=== PATIENT | male | born 1935 | race Caucasian/White ===

== ENCOUNTER → 2016-03-16 | Outpatient (CLI) | payer OTHER, BC ==
[~2016-03-16] MED LIST: ASPI81TA28 PO; BUME1TAB PO; FOLI1TAB7 PO; MCRK20 PO; MECL1TAB42 PO; METH2.5T PO; METO1TAB69 PO; NTRGSL/4 UT; PLN25 PO; PRD/1 PO; RANI150T3 PO; SIMV40TA2 PO
[2016-03-16 17:38] LABS: ALT/SGPT 17 U/L (12-78); BLOOD UREA NITROGEN 23 mg/dl (7-18); BUN/CREATININE RATIO 16.5 (10-20); CARBON DIOXIDE 29 mmol/L (21-32); CHLORIDE 104 mmol/L (98-107); GLUCOSE 79 mg/dl (70-99); POTASSIUM 4.3 mmol/L (3.5-5.1); SODIUM 142 mmol/L (136-145)
[2016-03-16 17:40] LABS: ALB/GLOB RATIO 0.9 (0.9-2); ALKALINE PHOSPHATASE 65 U/L (45-117); AST/SGOT 18 U/L (15-37)
[2016-03-16 18:38] LABS: BASO % 0.4 %; BASO ABS # 0.02 K/uL (0-0.2); COMPLETE YES; EOS % 2.5 %; HEMATOCRIT 42.1 % (42-52); IG% 0.2 %; LYMPH % 15.2 %; LYMPH ABS # 0.73 K/uL (1.2-3.4); MEAN CELL VOLUME 104.7 fL (80-100); MEAN CORPUSCULAR HEMOGLOBIN 33.8 pg (25-34); MEAN CORPUSCULAR HGB CONC 32.3 g/dl (32-36); MEAN PLATELET VOLUME 12.2 fL (7.4-10.4); MONO % 10.2 %; NEUT % 71.5 %; PLATELET COUNT 115 K/uL (130-400); PLT ESTIMATE DECREASED; RED BLOOD COUNT 4.02 M/uL (4.7-6.1); WHITE BLOOD COUNT 4.79 K/uL (4.8-10.8)
[2016-03-17 06:04] LABS: ESTIMATED AVERAGE GLUCOSE 114 mg/dl; HA1C FLAG Normal (Normal)
== END | disposition home or self-care (01) ==
LOC: C.LABBFT 11:43
PROVIDERS: ATTEND Internal Medicine
DX: N18.3 Chronic kidney disease, stage 3 (moderate) (principal); R73.01 Impaired fasting glucose

== ENCOUNTER → 2016-08-25 | Day surgery (SDC) | payer OTHER, BC ==
[2016-07-28 09:55] VITALS: Ht 177.8 cm; Wt 72.7 kg
[~2016-08-25] VITALS: Ht 177.8 cm; Wt 72.7 kg
[~2016-08-25] MED LIST changes: +500ML BSS 0.3ML EPI 1:1000PF IRRIG ONE; +ACETAMINOPHEN 325 MG TAB PO PRN; +AMVISC PLUS 0.8ML SYRINGE INT OCU ONE; +ATROPINE SULFATE 0.1 MG/ML 5ML SYR IV PRN; +BSS FLUSH ONE; +ENDOCOAT 0.85ML SYRINGE INT OCU ONE; +EpHEDrine SULFATE INJ 50 MG/ML AMP IV PRN; +EpINEphrine INJ 1MG/ML AMP 1 MG/ML AMP ONE; +LACTATED RINGER'S 1000ML 500 ML IV SCH; +LIDOCAINE 4% OP SOLN DROP CHARGE ONE; +LIDOCAINE 4% OP SOLN DROP CHARGE OPR SCH; +LIDOCAINE HCL 1% MPF 2 ML VIAL ONE; -MCRK20 PO; -MECL1TAB42 PO; +MIDAZOLAM HCL 1 MG/ML 2ML VIAL ONE; +MIX: 4ML BSS 1ML EPI 1:1000 PF TOP ONE; +MOXIFLOXACIN OPH SOLN PER DROP CHARGE ONE; -PLN25 PO; +POVIDONE-IODINE OP SOLN 30 ML BTL ONE; +PROPARACAINE 0.5% OP SOLN PER DROP CHARGE OPR SCH; -RANI150T3 PO; +TOBRAMYCIN/DEXAMETHASONE OPH OINT PER APPLN CHARGE ONE
[2016-08-25] MEDS: PHENYLEPHRINE HCL 2.5% OP SOLN PER DROP CHARGE OPR SCH ×3 (11:19→11:33)
[2016-08-25] MEDS: TROPICAMIDE 1% OP SOLN PER DROP CHARGE OPR SCH ×3 (11:20→11:36)
[2016-08-25] MEDS: CYCLOPENTOLATE HCL 1% OP SOLN PER DROP CHARGE OPR SCH ×3 (11:22→11:38)
[2016-08-25] MEDS: MOXIFLOXACIN OPH SOLN PER DROP CHARGE OPR SCH ×3 (11:24→11:40)
--- NOTE | 2016-08-25 11:36 | History & Physical Bridge - [place] ---
H&P Re-Evaluation Bridge Note: I have examined the patient, reviewed the History & Physical and in the interval since the performance of the History & Physical I have noted the following changes of clinical significance: No changes noted
--- NOTE | 2016-08-25 12:37 | [facility] Post Operative Brief Note ---
Immediate Operative Summary Operative Date Aug 25, 2016. Pre-Operative Diagnosis Right Eye Cataract Post-Operative Diagnosis same Procedure(s) Performed Right Cataract Phacoemulsification With Intraocular Lens Implant Surgeon Dr. Radha Joshi Certified Corporate [employer] Executive Surgeon(s) 0 Estimated Blood Loss 0 Findings right cataract Specimens none Complication(s) None Disposition
[2016-08-25 12:38] VITALS: TEMP 36.6
--- NOTE | 2016-08-25 12:38 | [facility] Operative Report ---
Operative Report Date of Service Aug 25, 2016. Operative Report Phaco with monofocal IOL DATE OF OPERATION: 08/25/16 PREOPERATIVE DIAGNOSIS: Senile nuclear cataract, right eye POSTOPERATIVE DIAGNOSIS: Senile nuclear cataract, right eye PROCEDURE PERFORMED: Phacoemulsification with intraocular lens implantation, right eye SURGEON: Dr. Jaime Joshi ANESTHESIA: Topical with 1% intracameral lidocaine and monitored anesthesia care COMPLICATIONS: None DESCRIPTION OF PROCEDURE: After positively identifying the patient both verbally and by wristband in the preoperative area, the right eye was marked as the operative eye. The patient was then brought back to the operating room by the anesthesia and nursing staff where they were given a drop of Lidocaine and betadine into the operative eye. They were then sterilely prepped and draped in the standard fashion typical for ophthalmic surgery. Steri-strips were placed along the upper eyelids to keep the lashes back, and a lid speculum was placed into the operative eye. At this point, a documented time out was performed with members of the ophthalmology, nursing, and anesthesia staffs all agreeing upon the correct patient, correct location for surgery, correct procedure, and correct type and power of intraocular lens to be implanted. The microscope was then swung into position. First, a paracentesis wound was made using a sideport blade. Then, in sequence, 1% preservative-free lidocaine followed by Endocoat viscoelastic was injected into the anterior chamber. Next , the main incision was made with a keratome blade in triplanar fashion. A sharp cystotome was introduced into the eye and used to create a tear in the anterior capsule, which was directed into a continuous curvilinear capsulorrhexis using Utrata forceps. Hydrodissection was then performed with BSS on a flat-tip cannula. Next, the phacoemulsification handpiece was introduced into the eye and used to remove the nucleus in a [id number] fashion. This was done without complication and then the irrigation-aspiration handpiece was introduced into the eye and used to remove all remaining cortical and epinuclear material. Amvisc was then injected into the anterior chamber as well as into the capsular bag and using the lens injector system, an MX60 19.5 D lens, serial number [id number], and expiration date 01/2019 was injected into the capsular bag and rotated into the correct position. Next, the irrigation- aspiration handpiece was used to remove all remaining Amvisc. BSS was used to hydrate the main wound, and then BSS was injected into the paracentesis site to reach physiologic pressure and then the main wound was checked and found to be watertight. The patient was given drops of Vigamox and Tobradex ointment into the operative eye, and then the surrounding area was cleaned and dried. A clear plastic shield was placed over the eye and the patient was then sat up and taken from the operating room by the anesthesia staff having tolerated the procedure well and suffering no complications. DISPOSITION: The patient was returned to the recovery room in stable condition. I attest to the content of the Intraoperative Record and any orders documented therein. Any exceptions are noted below.
--- NOTE | 2016-08-25 12:39 | Discharge Instructions-SurgCtr ---
Discharge Instructions Date of Service Aug 25, 2016. Visit Reason for Visit: Cataract Right Eye Discharge Discharge Diagnosis / Problem: right cataract Discharge Goals Goal(s): Decrease discomfort, Improve function Activity Recommendations Activity Limitations: as noted below Anesthesia . Post Anesthesia Instructions: If you have had General Anesthesia or IV Sedation: * Do not drive today. * Resume driving when surgeon permits. * Do not make important decisions or sign legal documents today. * Call surgeon for: 1. Temperature elevations greater than 101 degrees F. 2. Uncontrollable pain. 3. Excessive bleeding. 4. Persistent nausea and vomiting. 5. Medication intolerance (nausea, vomiting or rash). * For nausea and vomiting use only clear liquids such as: tea, soda, bouillon until nausea subsides, then gradually increase diet as tolerated. * If you have any concerns or questions, call your surgeon's office. If physician is unavailable and it is an emergency, call 911 or go to the nearest emergency room. . Instructions / Follow-Up Instructions / Follow-Up ACTIVITY RECOMMENDATIONS: * Light activities. * You may walk outside, read, watch television. * You may notice redness on the white part of the eye and some blurry vision - this is normal. MEDICATIONS: Resume previous medications unless instructed otherwise by your surgeon. Start all eye drops at 2:30 pm today: * Eye drops (today): Prednisone - one drop in operative eye every 2 hours while awake Ofloxacin - one drop in operative eye every 2 hours while awake Bromfenac - one drop in operative eye daily SPECIAL CARE INSTRUCTIONS: * Tape plastic shield over eye to sleep at night. Call your doctor at with any concerns or problems. FOLLOW UP VISIT: Follow-up with Dr Joshi at [facility] as scheduled. Diet Recommendations Home Diet: no limitations Procedures Procedures Performed: Right Cataract Phacoemulsification With Intraocular Lens Implant Pending Studies Studies pending at discharge: no Medical Emergencies . Who to Call and When: Medical Emergencies: If at any time you feel your situation is an emergency, please call 911 immediately. . Non-Emergent Contact Non-Emergency issues call your: Surgeon . . "Provider Documentation" section prepared by Jaime Joshi. .
--- NOTE | 2016-08-25 12:47 | Anesthesia Progress Nt - [facility] ---
Anesthesia Post Op Note Date & Time Aug 25, 2016 at 12:47 Vital Signs Pain Intensity: 0 Vital Signs Past 12 Hours Date Time Temp Pulse Resp B/P (MAP) Pulse Ox O2 Delivery O2 Flow Rate FiO2 08/25/16 12:38 36.6 65 16 137/85 (102) 98 Room Air 08/25/16 08:05 36.3 83 20 151/94 (113) 97 Room Air Notes Mental Status: alert / awake / arousable, participated in evaluation Pt Amnestic to Procedure: Yes Nausea / Vomiting: adequately controlled Pain: adequately controlled Airway Patency, RR, SpO2: stable & adequate BP & HR: stable & adequate Hydration State: stable & adequate Anesthetic Complications: no major complications apparent
[2016-08-25 13:14] VITALS: BP 146/90; PULSE 73; O2SAT 98
== END | disposition home or self-care (01) ==
LOC: X.SURG 07:43
PROVIDERS: ATTEND Ophthalmology
DX: H25.11 Age-related nuclear cataract, right eye (principal); H35.30 Unspecified macular degeneration; I34.1 Nonrheumatic mitral (valve) prolapse; M19.90 Unspecified osteoarthritis, unspecified site; I51.9 Heart disease, unspecified; Z90.49 Acquired absence of other specified parts of digestive tract; Z79.82 Long term (current) use of aspirin; Z79.52 Long term (current) use of systemic steroids

== ENCOUNTER → 2016-09-08 | Day surgery (SDC) | payer OTHER, BC ==
[2016-09-07 07:34] VITALS: Ht 177.8 cm; Wt 72.7 kg
[~2016-09-08] VITALS: Ht 177.8 cm; Wt 72.7 kg
[~2016-09-08] MED LIST changes: +LIDOCAINE 4% OP SOLN DROP CHARGE OPL SCH; -LIDOCAINE 4% OP SOLN DROP CHARGE OPR SCH; +PROPARACAINE 0.5% OP SOLN PER DROP CHARGE OPL SCH; -PROPARACAINE 0.5% OP SOLN PER DROP CHARGE OPR SCH
[2016-09-08] MEDS: PHENYLEPHRINE HCL 2.5% OP SOLN PER DROP CHARGE OPL SCH ×3 (10:37→10:47)
[2016-09-08] MEDS: TROPICAMIDE 1% OP SOLN PER DROP CHARGE OPL SCH ×3 (10:38→10:48)
[2016-09-08] MEDS: CYCLOPENTOLATE HCL 1% OP SOLN PER DROP CHARGE OPL SCH ×3 (10:39→10:49)
[2016-09-08] MEDS: MOXIFLOXACIN OPH SOLN PER DROP CHARGE OPL SCH ×3 (10:40→10:50)
[2016-09-08 11:54] VITALS: TEMP 36.4
--- NOTE | 2016-09-08 11:54 | [facility] Post Operative Brief Note ---
Immediate Operative Summary Operative Date Sep 08, 2016. Pre-Operative Diagnosis Cataract Left Eye Post-Operative Diagnosis Same Procedure(s) Performed Left Cataract Phacoemulsification With Intraocular Lens Implant Surgeon Dr. Joshi Printer Slotter Operator Surgeon(s) None Estimated Blood Loss 0 Findings left cataract Specimens 0 Complication(s) None Disposition
--- NOTE | 2016-09-08 11:56 | [facility] Operative Report ---
Operative Report Date of Service Sep 08, 2016. Operative Report DATE OF OPERATION: 09/08/16 PREOPERATIVE DIAGNOSIS: Senile nuclear cataract, left eye POSTOPERATIVE DIAGNOSIS: Senile nuclear cataract, left eye PROCEDURE PERFORMED: Phacoemulsification with intraocular lens implantation, left eye SURGEON: Dr. Jaime Joshi ANESTHESIA: Topical with 1% intracameral lidocaine and monitored anesthesia care COMPLICATIONS: None DESCRIPTION OF PROCEDURE: After positively identifying the patient both verbally and by wristband in the preoperative area, the left eye was marked as the operative eye. The patient was then brought back to the operating room by the anesthesia and nursing staff where they were given a drop of Lidocaine and betadine into the operative eye. They were then sterilely prepped and draped in the standard fashion typical for ophthalmic surgery. Steri-strips were placed along the upper eyelids to keep the lashes back, and a lid speculum was placed into the operative eye. At this point, a documented time out was performed with members of the ophthalmology, nursing, and anesthesia staffs all agreeing upon the correct patient, correct location for surgery, correct procedure, and correct type and power of intraocular lens to be implanted. The microscope was then swung into position. First, a paracentesis wound was made using a sideport blade. Then, in sequence, 1% preservative-free lidocaine followed by Endocoat viscoelastic was injected into the anterior chamber. Next , the main incision was made with a keratome blade in triplanar fashion. A sharp cystotome was introduced into the eye and used to create a tear in the anterior capsule, which was directed into a continuous curvilinear capsulorrhexis using Utrata forceps. Hydrodissection was then performed with BSS on a flat-tip cannula. Next, the phacoemulsification handpiece was introduced into the eye and used to remove the nucleus in a [id number] fashion. This was done without complication and then the irrigation-aspiration handpiece was introduced into the eye and used to remove all remaining cortical and epinuclear material. Amvisc was then injected into the anterior chamber as well as into the capsular bag and using the lens injector system, an MX60 20.0 D lens, serial number [id number], and expiration date 01/2019 was injected into the capsular bag and rotated into the correct position. Next, the irrigation- aspiration handpiece was used to remove all remaining Amvisc. BSS was used to hydrate the main wound, and then BSS was injected into the paracentesis site to reach physiologic pressure and then the main wound was checked and found to be watertight. The patient was given drops of Vigamox and Tobradex ointment into the operative eye, and then the surrounding area was cleaned and dried. A clear plastic shield was placed over the eye and the patient was then sat up and taken from the operating room by the anesthesia staff having tolerated the procedure well and suffering no complications. DISPOSITION: The patient was returned to the recovery room in stable condition. I attest to the content of the Intraoperative Record and any orders documented therein. Any exceptions are noted below.
--- NOTE | 2016-09-08 11:56 | Discharge Instructions-SurgCtr ---
Discharge Instructions Date of Service Sep 08, 2016. Visit Reason for Visit: Cataract Left Eye Discharge Discharge Diagnosis / Problem: left cataract Discharge Goals Goal(s): Decrease discomfort, Improve function Activity Recommendations Activity Limitations: as noted below Anesthesia . Post Anesthesia Instructions: If you have had General Anesthesia or IV Sedation: * Do not drive today. * Resume driving when surgeon permits. * Do not make important decisions or sign legal documents today. * Call surgeon for: 1. Temperature elevations greater than 101 degrees F. 2. Uncontrollable pain. 3. Excessive bleeding. 4. Persistent nausea and vomiting. 5. Medication intolerance (nausea, vomiting or rash). * For nausea and vomiting use only clear liquids such as: tea, soda, bouillon until nausea subsides, then gradually increase diet as tolerated. * If you have any concerns or questions, call your surgeon's office. If physician is unavailable and it is an emergency, call 911 or go to the nearest emergency room. . Instructions / Follow-Up Instructions / Follow-Up ACTIVITY RECOMMENDATIONS: * Light activities. * You may walk outside, read, watch television. * You may notice redness on the white part of the eye and some blurry vision - this is normal. MEDICATIONS: Resume previous medications unless instructed otherwise by your surgeon. Start all eye drops at 2 pm today: * Eye drops (today): Prednisone - one drop in operative eye every 2 hours while awake Ofloxacin - one drop in operative eye every 2 hours while awake Bromfenac - one drop in operative eye daily SPECIAL CARE INSTRUCTIONS: * Tape plastic shield over eye to sleep at night. Call your doctor at with any concerns or problems. FOLLOW UP VISIT: Follow-up with Dr Joshi at [place] office as scheduled. Diet Recommendations Home Diet: no limitations Procedures Procedures Performed: Left Cataract Phacoemulsification With Intraocular Lens Implant Pending Studies Studies pending at discharge: no Medical Emergencies . Who to Call and When: Medical Emergencies: If at any time you feel your situation is an emergency, please call 911 immediately. . Non-Emergent Contact Non-Emergency issues call your: Surgeon . . "Provider Documentation" section prepared by Jaime Joshi. .
--- NOTE | 2016-09-08 12:10 | Anesthesia Progress Nt - [facility] ---
Anesthesia Post Op Note Date & Time Sep 08, 2016 at 12:10 Vital Signs Pain Intensity: 0 Vital Signs Past 12 Hours Date Time Temp Pulse Resp B/P (MAP) Pulse Ox O2 Delivery O2 Flow Rate FiO2 09/08/16 11:54 36.4 79 16 128/79 (95) 97 Room Air 09/08/16 10:23 36.4 78 18 159/82 (107) 94 Room Air Notes Mental Status: alert / awake / arousable, participated in evaluation Pt Amnestic to Procedure: Yes Nausea / Vomiting: adequately controlled Pain: adequately controlled Airway Patency, RR, SpO2: stable & adequate BP & HR: stable & adequate Hydration State: stable & adequate Anesthetic Complications: no major complications apparent
[2016-09-08 12:19] VITALS: BP 137/87; PULSE 80; O2SAT 97
== END | disposition home or self-care (01) ==
LOC: X.SURG 10:03
PROVIDERS: ATTEND Ophthalmology
DX: H25.12 Age-related nuclear cataract, left eye (principal); I34.1 Nonrheumatic mitral (valve) prolapse; M19.90 Unspecified osteoarthritis, unspecified site; I25.10 Atherosclerotic heart disease of native coronary artery without angina pectoris; I10 Essential (primary) hypertension; Z79.82 Long term (current) use of aspirin; I25.2 Old myocardial infarction; Z86.79 Personal history of other diseases of the circulatory system; K21.9 Gastro-esophageal reflux disease without esophagitis; M06.9 Rheumatoid arthritis, unspecified; Z92.241 Personal history of systemic steroid therapy; Z95.818 Presence of other cardiac implants and grafts

== ENCOUNTER → 2016-09-15 | Outpatient (CLI) | payer OTHER, BC ==
[~2016-09-15] MED LIST changes: -500ML BSS 0.3ML EPI 1:1000PF IRRIG ONE; -ACETAMINOPHEN 325 MG TAB PO PRN; -AMVISC PLUS 0.8ML SYRINGE INT OCU ONE; -ATROPINE SULFATE 0.1 MG/ML 5ML SYR IV PRN; -BSS FLUSH ONE; -ENDOCOAT 0.85ML SYRINGE INT OCU ONE; -EpHEDrine SULFATE INJ 50 MG/ML AMP IV PRN; -EpINEphrine INJ 1MG/ML AMP 1 MG/ML AMP ONE; -LACTATED RINGER'S 1000ML 500 ML IV SCH; -LIDOCAINE 4% OP SOLN DROP CHARGE ONE; -LIDOCAINE 4% OP SOLN DROP CHARGE OPL SCH; -LIDOCAINE HCL 1% MPF 2 ML VIAL ONE; -MIDAZOLAM HCL 1 MG/ML 2ML VIAL ONE; -MIX: 4ML BSS 1ML EPI 1:1000 PF TOP ONE; -MOXIFLOXACIN OPH SOLN PER DROP CHARGE ONE; -POVIDONE-IODINE OP SOLN 30 ML BTL ONE; -PROPARACAINE 0.5% OP SOLN PER DROP CHARGE OPL SCH; -TOBRAMYCIN/DEXAMETHASONE OPH OINT PER APPLN CHARGE ONE
--- NOTE | 2016-09-15 16:31 | DIAGNOSTIC IMAGING REPORT ---
LEFT ART DOP DUPLEX LWR EXT UNI CLINICAL HISTORY: 81 years-old Male presenting with LLE NO PEDAL PULSE/COOLER/AFIB. TECHNIQUE: Real-time grayscale and color and spectral Doppler ultrasound imaging of the bilateral lower extremity arteries was performed. Measurements calculated based on NASCET criteria. COMPARISON: None. FINDINGS: Left: Common femoral artery: Atherosclerosis. Peak systolic velocity 48 cm/s. Normal triphasic waveforms. Superficial femoral artery: Atherosclerosis. Peak systolic velocity 50-66 cm/s. Normal triphasic waveforms Popliteal artery: Moderate atherosclerotic plaque in the distal popliteal artery. Peak systolic velocity 16-28 cm/s. Normal triphasic waveforms Posterior tibial artery: Atherosclerosis. Peak systolic velocity 14 cm/s. Blunted waveforms Peroneal artery: Patent. Peak systolic velocity 99 cm/s. Diminutive and slightly blunted waveforms Anterior tibial artery: Patent. Peak systolic velocity 25 cm/s. Blunted waveforms Dorsalis pedis: Patent. Peak systolic velocity 8 cm/s. Diminutive and slightly blunted waveforms ARNALDO Brachial: Right: mmHg, Left: 117 mmHg. Ankle (Posterior tibial): Right: 102 mmHg, Left: 70 mmHg. Ankle (Dorsalis pedis): Right: 116 mmHg, Left: 49 mmHg. Ankle/Brachial Index: Right: 0.99, Left: 0.60. Reference ranges: Normal ARNALDO 1.0-1.4; 0.9-0.99 borderline; less than 0.9 abnormal. IMPRESSION: 1. Abnormal ankle-brachial index in the left lower extremity. Diffuse atherosclerotic plaque burden most severe in the distal popliteal artery with patent vessels. No focal occlusion. Electronically signed by: Pete Askew M.D. 09/15/2016 4:30 PM Dictated Date/Time: 09/15/2016 4:24 PM
--- NOTE | 2016-09-15 16:49 | DIAGNOSTIC IMAGING REPORT ---
LEFT LOWER EXTREMITY VENOUS DOPPLER CLINICAL HISTORY: LLE NO PEDAL PULSE/COOLER/AFIB COMPARISON STUDY: No previous studies for comparison. TECHNIQUE: Sonography of the deep venous system of the left lower extremity was performed. Compression and augmentation were evaluated. FINDINGS: The common femoral, superficial femoral and popliteal veins were compressible. Augmentation was normal. Flow was shown within the deep calf vessels. IMPRESSION: No evidence of deep venous thrombus within the left lower extremity. Electronically signed by: Teddy Ling M.D. 09/15/2016 4:48 PM Dictated Date/Time: 09/15/2016 4:27 PM
== END | disposition home or self-care (01) ==
LOC: C.ULTR 14:52
PROVIDERS: ATTEND Nurse Practitioner
DX: M79.662 Pain in left lower leg (principal); R94.39 Abnormal result of other cardiovascular function study; I70.202 Unspecified atherosclerosis of native arteries of extremities, left leg

== ENCOUNTER → 2016-10-07 | Outpatient (CLI) | payer OTHER, BC ==
--- NOTE | 2016-10-07 11:38 | DIAGNOSTIC IMAGING REPORT ---
CHEST 2 VIEWS ROUTINE HISTORY: J44.9 COPD, [id number] COMPARISON: Chest 12/24/2015. FINDINGS: No pneumothorax. Small bilateral pleural effusions which are not significantly changed. Bibasilar linear densities suggesting scarring or subsegmental atelectasis. This is also similar to the prior study. The heart is stable in size. No new focal lung consolidations. No evidence for pulmonary edema. Stable prominence of the right pulmonary arteries. Suture material within the right lung apex. A few punctate nodular densities within the right midlung zone remain unchanged and favor calcified granulomas. IMPRESSION: 1. No change in the small bilateral pleural effusions. 2. No evidence for pulmonary edema. 3. Bibasilar linear densities are nonspecific but favor atelectasis. Electronically signed by: Virgil Schultz M.D. 10/07/2016 11:37 AM Dictated Date/Time: 10/07/2016 11:34 AM
== END | disposition home or self-care (01) ==
LOC: C.RAD1850 11:13
PROVIDERS: ATTEND Physician Assistant Medical
DX: J44.9 Chronic obstructive pulmonary disease, unspecified (principal)

== ENCOUNTER 2016-11-29 11:19 | Emergency (ER) | payer OTHER, BC ==
[~2016-11-29] VITALS: Ht 177.8 cm; Wt 76.7 kg
[~2016-11-29 11:19] MED LIST changes: -ASPI81TA28 PO; -BUME1TAB PO; -METO1TAB69 PO; -PRD/1 PO; -SIMV40TA2 PO
[2016-11-29 11:21] VITALS: Ht 177.8 cm; Wt 76.7 kg
[2016-11-29] MEDS ORDERED: SODIUM CHLORIDE 0.9% 1000ML 1,000 ML IV STA (12:18)
--- NOTE | 2016-11-29 12:27 | EMERGENCY ROOM VISIT NOTE ---
History Report prepared by Sade: Federica Dueñas Under the Supervision of: Dr. Josias Lao D.O. First contact with patient: 12:10 Chief Complaint: WEAKNESS Stated Complaint: CAN'T EAT,WEAK History of Present Illness The patient is an 81 year old male who presents to the Emergency Room with complaints of persistent weakness over the past week. The patient reports that three weeks ago his . He states that recently he has been experiencing generalized weakness and shortness of breath with exertion. The patient reports a decrease in eating and drinking. He states that the past four days he has been experiencing intermittent abdominal pain. The patient states that he has a history of a previous GI bleed while on Coumadin. He states that he feels similar today as he did with his GI bleed. The patient states that his stools are darker, but not black. He additionally reports intermittent diarrhea. The patient reports a history of an irregular heart beat. He states that he always has pain in his legs, but denies any swelling. The patient denies seeing his PCP for his symptoms. He denies any headache, chest pain, weight gain, or weakness to one side of his body. Source of History: patient Onset: past week Position: other (global) Quality: other (weakness) Timing: other (persistent) Associated Symptoms: + SOB, + abdominal pain, + diarrhea Review of Systems See HPI for pertinent positives & negatives. A total of 10 systems reviewed and were otherwise negative. Past Medical & Surgical Medical Problems: (1) Cardiac catheterization (2) Cholecystectomy (3) Coronary artery disease (4) Dehydration (5) Kidney stone (6) Placement of stent in coronary artery (7) Vertigo Family History Omitted due to advanced age Social History Smoking Status: Former Smoker Alcohol Use: none Drug Use: none Marital Status: Housing Status: lives alone Occupation Status: retired Current/Historical Medications Scheduled Aspirin (Aspirin Ec), 81 MG PO QAM Bumetanide (Bumex), 1 MG PO QAM Folic Acid (Folvite), 1 MG PO QAM Methotrexate Sodium (Methotrexate), 5 TAB PO TUESDAY Metoprolol Succ (Toprol Xl) (Toprol-Xl ), 100 MG PO QAM Nitroglycerin (Nitrostat), 0.4 MG UT PRN Prednisone (Prednisone), 2 MG PO QAM Simvastatin (Zocor), 40 MG PO HS Allergies Coded Allergies: Oxycodone (Verified Allergy, Unknown, HIVES FOR 3 WKS, 11/29/16) Furosemide (Verified Adverse Reaction, Mild, Confusion, dizziness and nausea-STILL TAKES IT AT HOME, 11/29/16) Physical Exam Vital Signs Date Time Temp Pulse Resp B/P (MAP) Pulse Ox O2 Delivery O2 Flow Rate FiO2 11/29/16 15:55 36.3 77 18 140/82 96 11/29/16 14:57 78 18 146/85 95 Room Air 11/29/16 14:07 76 20 143/89 97 Room Air 11/29/16 12:35 81 11/29/16 11:21 36.3 91 20 116/68 97 Room Air Physical Exam GENERAL: Patient is awake, alert, and in no acute distress. Patient is resting comfortably and showing no signs of anxiety EYES: The conjunctivae are clear. The pupils are round and reactive. EARS, NOSE, MOUTH AND THROAT: The nose is without any evidence of any deformity. Mucous membranes are moist tongue is midline NECK: The neck is nontender and supple. RESPIRATORY: Normal respiratory effort is noted there is no evidence of wheezing rhonchi or rales CARDIOVASCULAR: Irregular rhythm noted to auscultation systolic murmur noted to auscultation GASTROINTESTINAL: The abdomen is soft. Bowel sounds are present in all quadrants. Abdomen is nontender MUSCULOSKELETAL/EXTREMITIES: There is no evidence of gross deformity full range of motion is noted in the hips and shoulders SKIN: Trace pedal edema noted bilaterally. There is no obvious evidence of any rash. There are no petechiae, pallor or cyanosis noted. NEUROLOGIC: Patient is awake alert and oriented x3, strength was symmetric. Medical Decision & Procedures ER Provider Diagnostic Interpretation: Radiology results as stated below per my review and radiologist interpretation: CHEST ONE VIEW PORTABLE CLINICAL HISTORY: Pain, radiating to the abdomen COMPARISON STUDY: 10/07/2016 FINDINGS: The cardiac and mediastinal contours remain stable. There is no failure. There are small bilateral pleural effusions left greater than right. There are nonspecific bibasilar opacities, possibly atelectatic.. No free intraperitoneal air is visualized.[ IMPRESSION: 1. Bibasilar opacities, possibly atelectatic 2. Small bilateral pleural effusions left greater than right Electronically signed by: Zia Suazo M.D. 11/29/2016 12:40 PM Dictated Date/Time: 11/29/2016 12:38 PM Laboratory Results 11/29/16 12:13 Red Blood Count 4.00, Mean Corpuscular Volume 101.3, Mean Corpuscular Hemoglobin 34.0, Mean Corpuscular Hemoglobin Concent 33.6, Mean Platelet Volume 11.2, Neutrophils (%) (Auto) 69.4, Lymphocytes (%) (Auto) 8.1, Monocytes (%) ( Auto) 20.0, Eosinophils (%) (Auto) 2.0, Basophils (%) (Auto) 0.3, Neutrophils # (Auto) 4.20, Lymphocytes # (Auto) 0.49, Monocytes # (Auto) 1.21, Eosinophils # ( Auto) 0.12, Basophils # (Auto) 0.02 11/29/16 12:13 Test 11/29/16 12:13 11/29/16 14:00 White Blood Count 6.05 K/uL (4.8-10.8) Red Blood Count 4.00 M/uL (4.7-6.1) Hemoglobin 13.6 g/dL (14.0-18.0) Hematocrit 40.5 % (42-52) Mean Corpuscular Volume 101.3 fL (80-100) Mean Corpuscular Hemoglobin 34.0 pg (25-34) Mean Corpuscular Hemoglobin Concent 33.6 g/dl (32-36) Platelet Count 147 K/uL (130-400) Mean Platelet Volume 11.2 fL (7.4-10.4) Neutrophils (%) (Auto) 69.4 % Lymphocytes (%) (Auto) 8.1 % Monocytes (%) (Auto) 20.0 % Eosinophils (%) (Auto) 2.0 % Basophils (%) (Auto) 0.3 % Neutrophils # (Auto) 4.20 K/uL (1.4-6.5) Lymphocytes # (Auto) 0.49 K/uL (1.2-3.4) Monocytes # (Auto) 1.21 K/uL (0.11-0.59) Eosinophils # (Auto) 0.12 K/uL (0-0.5) Basophils # (Auto) 0.02 K/uL (0-0.2) RDW Standard Deviation 51.4 fL (36.4-46.3) RDW Coefficient of Variation 14.1 % (11.5-14.5) Immature Granulocyte % (Auto) 0.2 % Immature Granulocyte # (Auto) 0.01 K/uL (0.00-0.02) Prothrombin Time 11.8 SECONDS (9.0-12.0) Prothromb Time International Ratio 1.1 (0.9-1.1) Activated Partial Thromboplast Time 31.5 SECONDS (21.0-31.0) Partial Thromboplastin Ratio 1.2 Anion Gap 6.0 mmol/L (3-11) Est Creatinine Clear Calc Drug Dose 38.5 ml/min Estimated GFR () 49.2 Estimated GFR (Non- 42.4 BUN/Creatinine Ratio 15.8 (10-20) Calcium Level 9.1 mg/dl (8.5-10.1) Magnesium Level 1.9 mg/dl (1.8-2.4) Total Bilirubin 0.7 mg/dl (0.2-1) Direct Bilirubin 0.2 mg/dl (0-0.2) Aspartate Amino Transf (AST/SGOT) 21 U/L (15-37) Alanine Aminotransferase (ALT/SGPT) 15 U/L (12-78) Alkaline Phosphatase 84 U/L (45-117) Total Creatine Kinase 41 U/L (39-308) Creatine Kinase MB 0.8 ng/ml (0.5-3.6) Creatine Kinase MB Ratio 2.0 (0-3.0) Troponin I 0.016 ng/ml (0-0.045) Total Protein 7.3 gm/dl (6.4-8.2) Albumin 3.0 gm/dl (3.4-5.0) Lipase 119 U/L (73-393) Thyroid Stimulating Hormone (TSH) 1.330 uIu/ml (0.300-4.500) Urine Color YELLOW Urine Appearance CLEAR (CLEAR) Urine pH 5.5 (4.5-7.5) Urine Specific Outing 1.019 (1.000-1.030) Urine Protein TRACE (NEG) Urine Glucose (UA) NEG (NEG) Urine Ketones NEG (NEG) Urine Occult Blood NEG (NEG) Urine Nitrite NEG (NEG) Urine Bilirubin NEG (NEG) Urine Urobilinogen NEG (NEG) Urine Leukocyte Esterase NEG (NEG) Urine WBC (Auto) 1-5 /hpf (0-5) Urine RBC (Auto) 0-4 /hpf (0-4) Urine Hyaline Casts (Auto) 1-5 /lpf (0-5) Urine Epithelial Cells (Auto) 0-5 /lpf (0-5) Urine Bacteria (Auto) NEG (NEG) Laboratory results per my review. Medications Administered Medications (Trade) Dose Ordered Sig/Wilver Route Start Time Stop Time Status Last Admin Dose Admin Sodium Chloride 1,000 ml @ 999 mls/hr Q1H1M STAT IV 11/29/16 12:18 11/29/16 13:18 DC 11/29/16 12:18 999 MLS/HR ECG Indication: weakness Rate (beats per minute): 73 Rhythm: atrial fibrillation Findings: T-wave inversion (diffuse), other (frequent ectopy) Comparison ECG Date: 12/24/15 Change: no significant change ED Course 1214: The patient was evaluated in room B5. A complete history and physical examination were performed. 1218: Ordered Sodium Chloride 1000 ml @ 999 mls/hr IV. 1440: I reevaluated the patient and feels better after IV fluids 1511: I reevaluated the patient and he is resting comfortably. I discussed the exam findings with him and I discussed the treatment plan. He verbalized complete understanding and agreement. He is ready to go home. Medical Decision Differential diagnosis: Etiologies such as metabolic, infection, hypo/hyperglycemia, electrolyte abnormalities, cardiac sources, intracerebral event, toxicologic, neurologic, as well as others were entertained. Nursing notes reviewed. The patient is an 81-year-old male who presented to the department for evaluation of generalized weakness. He had no focal neurologic deficit. His physical exam and history did not appear to be consistent with stroke. The patient states that he has not been eating well recently because his recently . The patient was treated with IV fluids in the emergency department. I discussed the patient's laboratory and radiographic studies with him. He was able to ambulate without difficulty. I discussed his case with the emergency [facility] case reviewer. He was set up with an appointment with his primary care physician this week. He was encouraged to rest and avoid any strenuous activity. He was also encouraged to continue all medications as prescribed. He was also encouraged to follow-up with his family doctor as scheduled but return to the emergency department immediately if symptoms change worsen or the need arises. He was found have a pleural effusion but his chest x- ray appears to be unchanged from previous. Medication Reconcilliation Current Medication List: was personally reviewed by me Blood Pressure Screening Patient's blood pressure: Normal blood pressure Blood pressure disposition: Did not require urgent referral Impression Primary Impression: Weakness Additional Impressions: Dehydration Pleural effusion Scribe Attestation The scribe's documentation has been prepared under my direction and personally reviewed by me in its entirety. I confirm that the note above accurately reflects all work, treatment, procedures, and medical decision making performed by me. Departure Information Dispostion Home / Self-Care Referrals No Doctor, Assigned (PCP) Tristen Preston M.D. Forms HOME CARE DOCUMENTATION FORM, IMPORTANT VISIT INFORMATION Patient Instructions ED Weakness Diana MOURA [facility] Additional Instructions Follow-up with your family doctor this week as scheduled. Drink plenty clear liquids. Continue all medications as prescribed. Return to the emergency department immediately if symptoms change worsen or the need arises. Problem Qualifiers
--- NOTE | 2016-11-29 12:41 | DIAGNOSTIC IMAGING REPORT ---
CHEST ONE VIEW PORTABLE CLINICAL HISTORY: Pain, radiating to the abdomen COMPARISON STUDY: 10/07/2016 FINDINGS: The cardiac and mediastinal contours remain stable. There is no failure. There are small bilateral pleural effusions left greater than right. There are nonspecific bibasilar opacities, possibly atelectatic.. No free intraperitoneal air is visualized.[ IMPRESSION: 1. Bibasilar opacities, possibly atelectatic 2. Small bilateral pleural effusions left greater than right Electronically signed by: Zia Suazo M.D. 11/29/2016 12:40 PM Dictated Date/Time: 11/29/2016 12:38 PM
[2016-11-29 12:43] LABS: BASO % 0.3 %; BASO ABS # 0.02 K/uL (0-0.2); COMPLETE YES; HEMATOCRIT 40.5 % (42-52); IG% 0.2 %; LYMPH % 8.1 %; LYMPH ABS # 0.49 K/uL (1.2-3.4); MEAN CELL VOLUME 101.3 fL (80-100); MEAN CORPUSCULAR HGB CONC 33.6 g/dl (32-36); MEAN PLATELET VOLUME 11.2 fL (7.4-10.4); NEUT % 69.4 %; PLATELET COUNT 147 K/uL (130-400); WHITE BLOOD COUNT 6.05 K/uL (4.8-10.8)
[2016-11-29 12:53] LABS: INR 1.1 (0.9-1.1); PARTIAL THROMBOPLASTIN RATIO 1.2; PROTHROMBIN TIME (PATIENT) 11.8 SECONDS (9.0-12.0)
[2016-11-29 13:05] LABS: BUN/CREATININE RATIO 15.8 (10-20); CALCIUM 9.1 mg/dl (8.5-10.1); CREATININE 1.5 mg/dl (0.60-1.40); MAGNESIUM 1.9 mg/dl (1.8-2.4); POTASSIUM 3.7 mmol/L (3.5-5.1)
[2016-11-29 13:13] LABS: THYROID STIMULATING HORMONE 1.33 uIu/ml (0.300-4.500)
[2016-11-29 14:25] LABS: URINE APPEARANCE CLEAR (CLEAR); URINE BILIRUBIN NEG (NEG); URINE COLOR YELLOW; URINE EPITHELIAL CELL AUTO 0-5 /lpf (0-5); URINE NITRITE NEG (NEG); URINE PH 5.5 (4.5-7.5); URINE SPECIFIC GRAVITY 1.019 (1.000-1.030); UROBILINOGEN NEG (NEG)
[2016-11-29 14:26] LABS: MANUAL MICROSCOPIC REQUIRED? NO; REVIEW REQ? NO
[2016-11-29] MEDS ORDERED: ASPI81TA28 PO (15:17)
[2016-11-29 15:55] VITALS: BP 140/82; PULSE 77; TEMP 36.3; O2SAT 96
[2016-11-29] MEDS ORDERED: SIMV40TA2 PO (20:53)
[2016-11-29] MEDS ORDERED: BUME1TAB PO (23:42)
[2016-11-29] MEDS ORDERED: METO1TAB69 PO (23:47)
[2016-11-29] MEDS ORDERED: PRD/1 PO (23:52)
== END 2016-11-29 15:57 | disposition home or self-care (01) ==
LOC: C.EDB 11:20
DX: R53.1 Weakness (principal); E86.0 Dehydration; J90 Pleural effusion, not elsewhere classified; Z90.49 Acquired absence of other specified parts of digestive tract; I25.10 Atherosclerotic heart disease of native coronary artery without angina pectoris; Z87.442 Personal history of urinary calculi; Z95.5 Presence of coronary angioplasty implant and graft; Z87.891 Personal history of nicotine dependence; Z79.82 Long term (current) use of aspirin; Z79.899 Other long term (current) drug therapy

== ENCOUNTER → 2016-12-01 | Outpatient (CLI) | payer OTHER, BC ==
[~2016-12-01] MED LIST changes: +ASPI81TA28 PO; +BUME1TAB PO; +METO1TAB69 PO; +PRD/1 PO; +SIMV40TA2 PO
[2016-12-01 12:10] LABS: URINE APPEARANCE CLEAR (CLEAR); URINE BILIRUBIN NEG (NEG); URINE COLOR YELLOW; URINE EPITHELIAL CELL AUTO 0-5 /lpf (0-5); URINE NITRITE NEG (NEG); URINE SPECIFIC GRAVITY 1.016 (1.000-1.030); UROBILINOGEN NEG (NEG); ZZUR CULT IF INDIC CLEAN CATCH NO
[2016-12-01 12:13] LABS: MANUAL MICROSCOPIC REQUIRED? NO; REVIEW REQ? NO
[2016-12-01 12:25] LABS: BASO % 0.4 %; BASO ABS # 0.03 K/uL (0-0.2); COMPLETE YES; EOS % 3.2 %; HEMATOCRIT 40.9 % (42-52); IG% 0.4 %; LYMPH % 12.2 %; LYMPH ABS # 0.95 K/uL (1.2-3.4); MEAN CORPUSCULAR HEMOGLOBIN 33.8 pg (25-34); MEAN CORPUSCULAR HGB CONC 32.8 g/dl (32-36); MEAN PLATELET VOLUME 11.6 fL (7.4-10.4); MONO % 11.7 %; NEUT % 72.1 %; PLATELET COUNT 175 K/uL (130-400); RED BLOOD COUNT 3.97 M/uL (4.7-6.1); WHITE BLOOD COUNT 7.79 K/uL (4.8-10.8)
[2016-12-01 12:29] LABS: ESTIMATED AVERAGE GLUCOSE 117 mg/dl; HA1C FLAG Normal (Normal)
[2016-12-01 12:33] LABS: ALT/SGPT 15 U/L (12-78); AST/SGOT 19 U/L (15-37); BLOOD UREA NITROGEN 29 mg/dl (7-18); BUN/CREATININE RATIO 20.8 (10-20); CALCIUM 8.8 mg/dl (8.5-10.1); CARBON DIOXIDE 27 mmol/L (21-32); CHLORIDE 106 mmol/L (98-107); CHOLESTEROL 122 mg/dl (0-200); GLUCOSE 87 mg/dl (70-99); SODIUM 138 mmol/L (136-145)
[2016-12-01 12:43] LABS: ALB/GLOB RATIO 0.7 (0.9-2); ALKALINE PHOSPHATASE 83 U/L (45-117); CHOLESTEROL/HDL RATIO 2.9; HDL CHOLESTEROL 42 mg/dl; LDL CHOLESTEROL CALCULATED 59 mg/dl; TRIGLYCERIDES 103 mg/dl (0-150); VERY LOW DENSITY LIPOPROT CALC 21 mg/dl
== END | disposition home health service (06) ==
LOC: C.LABBFT 09:50
PROVIDERS: ATTEND Physician Assistant Medical
DX: N18.3 Chronic kidney disease, stage 3 (moderate) (principal); J22 Unspecified acute lower respiratory infection; R73.01 Impaired fasting glucose; E78.00 Pure hypercholesterolemia, unspecified; I25.10 Atherosclerotic heart disease of native coronary artery without angina pectoris; R53.83 Other fatigue

== ENCOUNTER 2017-01-25 15:22 | Emergency (ER) | payer OTHER ==
[~2017-01-25] VITALS: Ht 170.2 cm; Wt 74.0 kg
[~2017-01-25 15:22] MED LIST changes: +CYAN100073 PO; +METO100T44 PO; -METO1TAB69 PO; +SERT25TA PO; +TRIA1SPR4 NAE; +ZNTT/150 PO
[2017-01-25 15:49] VITALS: TEMP 36.5; Ht 170.2 cm; Wt 74.0 kg
[2017-01-25] MEDS ORDERED: CEFTRIAXONE SOD INJ 1 GM ADDVIAL IV STA (16:09)
[2017-01-25] MEDS ORDERED: XYLOCAINE 1%/SOD BICARB 20 ML VIAL INFIL ONE (16:15)
[2017-01-25] MEDS ORDERED: CYAN100020 PO (17:09)
--- NOTE | 2017-01-25 17:13 | DIAGNOSTIC IMAGING REPORT ---
R HAND MIN 3 VIEWS ROUTINE CLINICAL HISTORY: ? R middle finger bony infection COMPARISON: None. DISCUSSION: Soft tissue edema. Moderate generalized degenerative change. No lytic or blastic process. No direct evidence for osteomyelitis. Moderate soft tissue edema IMPRESSION: Moderate soft tissue edema, primarily in the region of the second and third fingers. Degenerative change. No acute bony abnormality. The above report was generated using voice recognition software. It may contain grammatical, syntax or spelling errors. Electronically signed by: Duong Durand M.D. 01/25/2017 5:12 PM Dictated Date/Time: 01/25/2017 5:10 PM
[2017-01-25] MEDS ORDERED: CLIN300C10 PO (18:43)
[2017-01-25] MEDS ORDERED: CLINDAMYCIN HCL 150 MG CAP PO ONE (18:45)
[2017-01-25] MEDS ORDERED: CLINDAMYCIN 150MG HOME PACK PO ONE (18:45)
[2017-01-25 19:20] VITALS: BP 170/107; PULSE 73; O2SAT 97
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
== END 2017-01-25 19:22 | disposition home or self-care (01) ==
LOC: C.EDB 15:23 → C.EDA 19:22
DX: L03.011 Cellulitis of right finger (principal); I25.10 Atherosclerotic heart disease of native coronary artery without angina pectoris; Z87.442 Personal history of urinary calculi; Z79.899 Other long term (current) drug therapy

== ENCOUNTER → 2017-02-01 | Outpatient (CLI) | payer OTHER, BC ==
[~2017-02-01] MED LIST changes: +CLIN300C10 PO; +CYAN100020 PO; -CYAN100073 PO; -FOLI1TAB7 PO; +FOLI1TAB8 PO
[2017-02-01 18:08] LABS: HEMATOCRIT 46.1 % (42-52); MEAN CELL VOLUME 103.6 fL (80-100); MEAN CORPUSCULAR HEMOGLOBIN 34.6 pg (25-34); MEAN CORPUSCULAR HGB CONC 33.4 g/dl (32-36); PLATELET COUNT 123 K/uL (130-400); RED BLOOD COUNT 4.45 M/uL (4.7-6.1); WHITE BLOOD COUNT 6.07 K/uL (4.8-10.8)
[2017-02-01 18:09] LABS: BASO % 0.5 %; BASO ABS # 0.03 K/uL (0-0.2); COMPLETE YES; EOS % 0.8 %; GIANT PLATELETS 1+; IG% 0.5 %; LYMPH % 9.7 %; LYMPH ABS # 0.59 K/uL (1.2-3.4); MONO % 14.2 %; NEUT % 74.3 %; PLT ESTIMATE DECREASED; TOXIC GRANULATION 1+
[2017-02-01 18:14] LABS: BLOOD UREA NITROGEN 28 mg/dl (7-18); CARBON DIOXIDE 29 mmol/L (21-32); CHLORIDE 101 mmol/L (98-107); CREATININE 1.62 mg/dl (0.60-1.40); GLUCOSE 119 mg/dl (70-99); POTASSIUM 3.4 mmol/L (3.5-5.1); SODIUM 137 mmol/L (136-145); URIC ACID 7.7 mg/dl (2.6-7.2)
== END | disposition home or self-care (01) ==
LOC: C.LABBFT 15:27
PROVIDERS: ATTEND Physician Assistant Medical
DX: D64.9 Anemia, unspecified (principal); M79.89 Other specified soft tissue disorders; R63.4 Abnormal weight loss

== ENCOUNTER 2017-02-08 16:24 | Inpatient (IN) | payer OTHER, BC ==
[~2017-02-08] VITALS: Ht 165.1 cm; Wt 72.5 kg
[~2017-02-08 16:24] MED LIST changes: -BUME1TAB PO; -CYAN100020 PO; -FOLI1TAB8 PO; -PRD/1 PO; -SERT25TA PO; -SIMV40TA2 PO; -TRIA1SPR4 NAE; -ZNTT/150 PO
[2017-02-08] MEDS ORDERED: SODIUM CHLORIDE 0.9% 1000ML 500 ML IV STA (16:35)
[2017-02-08 16:40] VITALS: Ht 165.1 cm; Wt 72.5 kg
[2017-02-08 16:50] LABS: HEMATOCRIT 48.8 % (42-52); HEMOGLOBIN 16.1 g/dL (14.0-18.0); MEAN CELL VOLUME 103.6 fL (80-100); MEAN CORPUSCULAR HEMOGLOBIN 34.2 pg (25-34); RED CELL DISTRIBUTION WIDTH CV 16.2 % (11.5-14.5); RED CELL DISTRIBUTION WIDTH SD 61.5 fL (36.4-46.3); WHITE BLOOD COUNT 8.15 K/uL (4.8-10.8)
--- NOTE | 2017-02-08 16:54 | DIAGNOSTIC IMAGING REPORT ---
CHEST ONE VIEW PORTABLE CLINICAL HISTORY: 81 years-old Male presenting with EVALUATE ALTERED MENTAL STATUS/WEAKNESS. TECHNIQUE: Portable upright AP view of the chest was obtained. COMPARISON: 01/20/2017. FINDINGS: Atherosclerosis of aortic arch. Evidence of aortic valve replacement. Cardiac silhouette normal in size, decreased from prior. Prominence of the bilateral johnny. Persistent bibasilar opacities, left greater than right. Small bilateral pleural effusions. No pneumothorax. Degenerative changes of the thoracic spine. Cholecystectomy clips. IMPRESSION: 1. Unchanged bibasilar opacities left greater than right with small bilateral pleural effusions. 2. Apparent decrease in cardiomegaly. 3. Persistent prominence of the johnny likely vascular. Electronically signed by: Pete Askew M.D. 02/08/2017 4:52 PM Dictated Date/Time: 02/08/2017 4:51 PM
[2017-02-08 17:00] LABS: INR 1.2 (0.9-1.1); PTT PATIENT 31.9 SECONDS (21.0-31.0)
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
[2017-02-08] MEDS ORDERED: CYAN100020 PO (17:09)
[2017-02-08 17:13] LABS: PLATELET COUNT 89 K/uL (130-400)
[2017-02-08] MEDS ORDERED: SERT50TA PO (17:13)
[2017-02-08] MEDS ORDERED: TPRSR/100 PO (17:13)
[2017-02-08] MEDS ORDERED: PRLSR20 PO (17:13)
[2017-02-08 17:17] LABS: BASO % 0.2 %; BASO ABS # 0.02 K/uL (0-0.2); EOS % 0.1 %; EOS ABS # 0.01 K/uL (0-0.5); IG# 0.04 K/uL (0.00-0.02); LYMPH % 13.1 %; LYMPH ABS # 1.07 K/uL (1.2-3.4); MONO % 18.7 %; MONO ABS # 1.52 K/uL (0.11-0.59); NEUT % 67.4 %; NEUT ABS # 5.49 K/uL (1.4-6.5)
[2017-02-08 17:38] LABS: ALBUMIN 3.5 gm/dl (3.4-5.0); CALCIUM 9.3 mg/dl (8.5-10.1); CREATININE 1.61 mg/dl (0.60-1.40); TOTAL PROTEIN 8.5 gm/dl (6.4-8.2)
[2017-02-08] MEDS ORDERED: SODIUM CHLORIDE 0.9% 500ML 500 ML IV STA (17:40)
[2017-02-08 17:53] LABS: POTASSIUM 3.9 mmol/L (3.5-5.1)
--- NOTE | 2017-02-08 17:54 | DIAGNOSTIC IMAGING REPORT ---
HEAD WITHOUT CONTRAST (CT) CLINICAL HISTORY: 81 years-old Male with EVALUATE ALTERED MENTAL STATUS/WEAKNESS. Acute altered mental status TECHNIQUE: Multiple axial CT images of the head were obtained without contrast. A dose lowering technique was utilized adhering to the principles of ALARA. CT DOSE: 537.48 mGy.cm COMPARISON: CTA of the head 01/20/2017, brain MR 01/20/2017, CT head 01/19/2017. FINDINGS: No acute intracranial hemorrhage, midline shift, intracranial mass, hydrocephalus, territorial ischemia or abnormal extra-axial collection. Encephalomalacia from remote infarction redemonstrated within the right temporal lobe. Moderate atrophy with ex vacuo ventriculomegaly. Chronic microvascular ischemic changes redemonstrated. Vascular calcifications are seen at the level of the skull base. The calvarium is intact. The paranasal sinuses, mastoid air cells, and middle ear cavities are clear. IMPRESSION: 1. No acute intracranial abnormality. 2. Chronic changes as above. The above report was generated using voice recognition software. It may contain grammatical, syntax or spelling errors. Electronically signed by: Andrzej Cardenas M.D. 02/08/2017 5:53 PM Dictated Date/Time: 02/08/2017 5:49 PM
[2017-02-08] MEDS ORDERED: POLYETHYLENE (MIRALAX) 17 GM PACK PO PRN (19:15)
[2017-02-08] MEDS ORDERED: ACETAMINOPHEN 325 MG TAB PO PRN (19:15)
[2017-02-08] MEDS ORDERED: SIMV40TA2 PO (20:53)
[2017-02-08] MEDS ORDERED: ENOXAPARIN 30 MG/0.3 ML SYR SQ SCH (21:00)
[2017-02-08] MEDS ORDERED: GADAVIST IV PRN (22:15)
[2017-02-08 22:25] VITALS: BP 124/74; PULSE 90; TEMP 36.4
[2017-02-08] MEDS: SIMVASTATIN 40 MG TAB PO SCH (22:35)
[2017-02-08] MEDS ORDERED: FOLI1TAB8 PO (22:36)
[2017-02-08] MEDS ORDERED: TRIA1SPR4 NAE (22:36)
[2017-02-08] MEDS ORDERED: ZNTT/150 PO (22:36)
[2017-02-08] MEDS ORDERED: SERT25TA PO (22:36)
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
[2017-02-08 23:33] VITALS: BP 130/79; PULSE 89; TEMP 36.6; O2SAT 92
[2017-02-08] MEDS ORDERED: BUME1TAB PO (23:42)
[2017-02-08] MEDS ORDERED: PRD/1 PO (23:52)
[2017-02-09 06:44] LABS: CALCIUM 8.8 mg/dl (8.5-10.1); CREATININE 1.48 mg/dl (0.60-1.40); POTASSIUM 3.5 mmol/L (3.5-5.1)
[2017-02-09 06:50] LABS: BASO % 0.5 %; BASO ABS # 0.03 K/uL (0-0.2); EOS % 0.5 %; EOS ABS # 0.03 K/uL (0-0.5); HEMATOCRIT 45.2 % (42-52); HEMOGLOBIN 14.5 g/dL (14.0-18.0); IG# 0.02 K/uL (0.00-0.02); LYMPH % 7.9 %; LYMPH ABS # 0.49 K/uL (1.2-3.4); MEAN CELL VOLUME 104.4 fL (80-100); MEAN CORPUSCULAR HEMOGLOBIN 33.5 pg (25-34); MEAN CORPUSCULAR HGB CONC 32.1 g/dl (32-36); MONO % 24.4 %; MONO ABS # 1.51 K/uL (0.11-0.59); NEUT % 66.4 %; NEUT ABS # 4.12 K/uL (1.4-6.5); PLATELET COUNT 86 K/uL (130-400); RED CELL DISTRIBUTION WIDTH CV 15.9 % (11.5-14.5); RED CELL DISTRIBUTION WIDTH SD 61.2 fL (36.4-46.3)
--- NOTE | 2017-02-09 06:56 | Clinical Documentation Query ---
CLINICAL DOCUMENTATION QUERY QUERY 1 OF 2 81 yo male who was brought to the ED by family for progressive weakness, poor appetite, weight loss and general concerns for confusion and depression. In your clinical opinion is this patient being managed for: ( x ) Acute kidney failure, resolving ( ) Not Agree ( ) Other explanation of clinical findings (Please Explain) ( ) Unable to determine (Please Define) ( ) Need to Discuss The medical record reflects the following clinical findings, treatment, and risk factors. Clinical Indicators: Creatinine 1.61 trending down; baseline 1.20 on 01/19/17 Treatment: IV hydration, PRP Risk Factors: Age, dehydration, weakness QUERY 2 OF 2 In your clinical opinion is this patient being managed for: ( x ) Chronic kidney disease, stage 3 ( ) Not Agree ( ) Other explanation of clinical findings (Please Explain) ( ) Unable to determine (Please Define) ( ) Need to Discuss The medical record reflects the following clinical findings, treatment, and risk factors. Clinical Indicators: GFR range 38.7 to 55.6 over three months Treatment: IV hydration, PRP Risk Factors: Age, dehydration, weakness Please clarify and document your clinical opinion in the progress notes and discharge summary. Terms such as "probable", "suspected", "likely", "questionable", "possible", or "still to be ruled out" are acceptable. IF IN AGREEMENT, YOU MUST DOCUMENT ABOVE DIAGNOSTIC STATEMENT IN DAILY PROGRESS NOTES AND DISCHARGE SUMMARY. This document is not part of the patient's record. Thank You, Kate Polanco RN [phone]
[2017-02-09 07:37] VITALS: BP 122/82; PULSE 95; TEMP 36.7; O2SAT 96
[2017-02-09] MEDS: METOPROLOL SUCC 50MG EXT REL TAB PO SCH (07:50)
[2017-02-09] MEDS: PANTOprazole SOD 40 MG TAB PO SCH (07:51)
[2017-02-09] MEDS: ASPIRIN 81 MG ECTAB PO SCH (07:51)
--- NOTE | 2017-02-09 08:21 | Hospitalist Progress Note ---
Hospitalist Progress Note Date of Service Feb 09, 2017. Subjective Pt evaluation today including: conversation w/ patient, physical exam, chart review, lab review, review of studies Pain: None PO Intake: poor Voiding: no voiding problems The patient was seen and examined this morning. Pt reports this morning that he is very tired. His affect seems very flat but is also slightly hard of hearing , so answers my questions better when I speak louder. He reports understanding that he had a small stroke. Pt reports having an internal bleeding issue with anticoagulation about 5 years ago and states he was told not to be on anticoagulation. He has been taking baby aspirin and a statin prior to this event. He also reports feeling weak but has full strength in his extremities and is not having issues with swallowing or chewing despite his poor appetite. ROS: 6 point ROS reviewed and negative otherwise. Objective Vital Signs Date Time Temp Pulse Resp B/P (MAP) Pulse Ox O2 Delivery O2 Flow Rate FiO2 02/09/17 07:37 36.7 95 20 122/82 (95) 96 Room Air 02/09/17 00:05 Room Air 02/08/17 23:33 36.6 89 18 130/79 (96) 92 Room Air 02/08/17 22:25 36.4 90 20 124/74 Room Air 02/08/17 18:49 89 96 Room Air 02/08/17 17:31 131/79 02/08/17 17:29 91 18 02/08/17 17:24 92 18 02/08/17 17:19 89 18 02/08/17 17:14 84 20 02/08/17 17:09 87 20 02/08/17 17:04 87 28 02/08/17 17:01 149/95 02/08/17 16:59 93 22 02/08/17 16:54 93 16 02/08/17 16:49 92 17 02/08/17 16:44 89 21 02/08/17 16:40 96 Room Air 02/08/17 16:40 36.4 86 16 139/93 96 Room Air 02/08/17 16:39 85 21 02/08/17 16:32 139/93 Physical Exam General Appearance: WD/WN, no apparent distress Eyes: PERRL, EOMI ENT: hearing grossly normal, pharynx normal Neck: supple, no JVD Respiratory/Chest: chest non-tender, lungs clear, no respiratory distress, no accessory muscle use Cardiovascular: no murmur, + irregularly irregular (artificial heart valve sound) Abdomen: normal bowel sounds, non tender, soft Extremities: non-tender, no pedal edema, no calf tenderness Neurologic/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1 % Monocytes (%) (Auto) 18.7 % Eosinophils (%) (Auto) 0.1 % Basophils (%) (Auto) 0.2 % Neutrophils # (Auto) 5.49 K/uL Lymphocytes # (Auto) 1.07 K/uL Monocytes # (Auto) 1.52 K/uL Eosinophils # (Auto) 0.01 K/uL Basophils # (Auto) 0.02 K/uL RDW Standard Deviation 61.5 fL RDW Coefficient of Variation 16.2 % Immature Granulocyte % (Auto) 0.5 % Immature Granulocyte # (Auto) 0.04 K/uL Platelet Estimate DECREASED Macrocytosis PRESENT Prothrombin Time 13.0 SECONDS Prothromb Time International Ratio 1.2 Activated Partial Thromboplast Time 31.9 SECONDS Partial Thromboplastin Ratio 1.2 Sodium Level 142 mmol/L Potassium Level 3.9 mmol/L Chloride Level 102 mmol/L Carbon Dioxide Level 29 mmol/L Anion Gap 10.0 mmol/L Blood Urea Nitrogen 33 mg/dl Creatinine 1.61 mg/dl Est Creatinine Clear Calc Drug Dose 30.2 ml/min Estimated GFR () 45.2 Estimated GFR (Non- 39.0 BUN/Creatinine Ratio 20.4 Random Glucose 83 mg/dl Calcium Level 9.3 mg/dl Magnesium Level 2.3 mg/dl Total Bilirubin 0.9 mg/dl Aspartate Amino Transf (AST/SGOT) 33 U/L Alanine Aminotransferase (ALT/SGPT) 19 U/L Alkaline Phosphatase 73 U/L Total Creatine Kinase 51 U/L Troponin I 0.031 ng/ml Total Protein 8.5 gm/dl Albumin 3.5 gm/dl Globulin 5.0 gm/dl Albumin/Globulin Ratio 0.7 Thyroid Stimulating Hormone (TSH) 0.977 uIu/ml Ethyl Alcohol mg/dL < 3.0 mg/dl Lactic Acid Level 1.6 mmol/L Ammonia < 10.0 umol/L Urine Color DK YELLOW Urine Appearance CLEAR Urine pH 5.0 Urine Specific [place] 1.023 Urine Protein TRACE Urine Glucose (UA) NEG Urine Ketones TRACE Urine Occult Blood NEG Urine Nitrite NEG Urine Bilirubin NEG Urine Urobilinogen NEG Urine Leukocyte Esterase NEG Urine WBC (Auto) 1-5 /hpf Urine RBC (Auto) 0-4 /hpf Urine Hyaline Casts (Auto) 5-10 /lpf Urine Epithelial Cells (Auto) 20-30 /lpf Urine Bacteria (Auto) NEG Test 02/09/17 05:51 02/09/17 07:59 White Blood Count 6.20 K/uL Red Blood Count 4.33 M/uL Hemoglobin 14.5 g/dL Hematocrit 45.2 % Mean Corpuscular Volume 104.4 fL Mean Corpuscular Hemoglobin 33.5 pg Mean Corpuscular Hemoglobin Concent 32.1 g/dl Platelet Count 86 K/uL Neutrophils (%) (Auto) 66.4 % Lymphocytes (%) (Auto) 7.9 % Monocytes (%) (Auto) 24.4 % Eosinophils (%) (Auto) 0.5 % Basophils (%) (Auto) 0.5 % Neutrophils # (Auto) 4.12 K/uL Lymphocytes # (Auto) 0.49 K/uL Monocytes # (Auto) 1.51 K/uL Eosinophils # (Auto) 0.03 K/uL Basophils # (Auto) 0.03 K/uL RDW Standard Deviation 61.2 fL RDW Coefficient of Variation 15.9 % Immature Granulocyte % (Auto) 0.3 % Immature Granulocyte # (Auto) 0.02 K/uL Platelet Estimate DECREASED Poikilocytosis PRESENT Echinocytes 1+ Sodium Level 143 mmol/L Potassium Level 3.5 mmol/L Chloride Level 106 mmol/L Carbon Dioxide Level 28 mmol/L Anion Gap 9.0 mmol/L Blood Urea Nitrogen 35 mg/dl Creatinine 1.48 mg/dl Est Creatinine Clear Calc Drug Dose 32.9 ml/min Estimated GFR () 50.0 Estimated GFR (Non- 43.1 BUN/Creatinine Ratio 23.5 Random Glucose 72 mg/dl Calcium Level 8.8 mg/dl Magnesium Level 2.3 mg/dl Assessment and Plan 81 yo male with recent TAVR for severe , comes to the ED today with confusion , weight loss, depression, ambulatory dysfunction Acute left frontal/ left occipital stroke - Likely caused behavioral changes and confusion. Brain Combo MRI completed and showin-3 mm foci of acute to subacute infarction involve the left frontal and left occipital lobes as above. No significant associated edema, hemorrhage, mass effect or territorial infarct identified. No abnormal enhancement. 2. Atrophy with advanced chronic microvascular ischemic changes. Encephalomalacia and gliosis from remote infarction involves the right temporal parietal lobes. 3. Trace right mastoid effusion. - Neuro consulted - Stating and asa 81 mg already ordered - Speech evaluation - PT/OT - CM to assist with dc planning Major depressive episode - progressive decline over the past month, daughter feels that it started after the TAVR - patient showing signs of depression and his recent life stressors would make depression logical reaction - not eating, sleeping a lot, not doing anything that he enjoy, likely not taking medications, or maybe taking incorrectly prescribed Zoloft, either 50mg or 25mg or 75mg, he cannot tell me, will use 50mg for now -consult psych for recs - appreciate Recent TAVR: no new issues of heart failure - can hear the artificial valve sound - Consider echo with new found stroke Atrial fibrillation - chronic, continue metoprolol - the patient CANNOT have anticoagulation due to history of bleeding - pt confirms today Dehydration: NSS overnight and likely tomorrow - Continue IVFs at 75 mL today - Cr slightly improved today, UO good FULL CODE Disposition: From home, CM to assist with dc planning, daughter in law would like to look into prison at this time
[2017-02-09] MEDS ORDERED: PHARMACIST DISCHARGE MED REC CONSULT PRN (08:30)
[2017-02-09] MEDS ORDERED: SERTRALINE HCL 50 MG TAB PO SCH (09:00)
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
[2017-02-09 10:12] LABS: HEMOGLOBIN A1C 5.1 % (4.5-5.6)
[2017-02-09] MEDS ORDERED: NURSING DECISION MEDICATION ORDER SCH (10:15)
[2017-02-09] MEDS: SODIUM CHLORIDE 0.9% 1000ML 1,000 ML IV SCH (11:05)
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
[2017-02-09 14:59] VITALS: BP 124/85; PULSE 98; TEMP 36.2; O2SAT 95
[2017-02-09] MEDS: SIMVASTATIN 40 MG TAB PO SCH (20:33)
[2017-02-09 23:01] VITALS: BP 134/84; PULSE 97; TEMP 36.4; O2SAT 97
[2017-02-10] MEDS: SODIUM CHLORIDE 0.9% 1000ML 1,000 ML IV SCH ×2 (00:02→13:03)
--- NOTE | 2017-02-10 06:03 | Clinical Documentation Query ---
CLINICAL DOCUMENTATION QUERY QUERY 1 OF 2 81 yo male who was brought to the ED by family for progressive weakness, poor appetite, weight loss and general concerns for confusion and depression. In your clinical opinion is this patient being managed for: (x ) Acute kidney failure, resolving ( ) Not Agree ( ) Other explanation of clinical findings (Please Explain) ( ) Unable to determine (Please Define) ( ) Need to Discuss The medical record reflects the following clinical findings, treatment, and risk factors. Clinical Indicators: Creatinine 1.61 trending down; baseline 1.20 on 01/19/17 Treatment: IV hydration, PRP Risk Factors: Age, dehydration, weakness QUERY 2 OF 2 In your clinical opinion is this patient being managed for: ( x) Chronic kidney disease, stage 3 , ( ) Not Agree ( ) Other explanation of clinical findings (Please Explain) ( ) Unable to determine (Please Define) ( ) Need to Discuss The medical record reflects the following clinical findings, treatment, and risk factors. Clinical Indicators: GFR range 38.7 to 55.6 over three months Treatment: IV hydration, PRP Risk Factors: Age, dehydration, weakness Please clarify and document your clinical opinion in the progress notes and discharge summary. Terms such as "probable", "suspected", "likely", "questionable", "possible", or "still to be ruled out" are acceptable. IF IN AGREEMENT, YOU MUST DOCUMENT ABOVE DIAGNOSTIC STATEMENT IN DAILY PROGRESS NOTES AND DISCHARGE SUMMARY. This document is not part of the patient's record. Thank You, Kate Polanco RN [phone]
[2017-02-10 07:32] VITALS: BP 133/82; PULSE 85; TEMP 36.5; O2SAT 91
[2017-02-10 07:42] LABS: CALCIUM 8.6 mg/dl (8.5-10.1); CREATININE 1.42 mg/dl (0.60-1.40); POTASSIUM 3.4 mmol/L (3.5-5.1)
[2017-02-10] MEDS: ASPIRIN 81 MG ECTAB PO SCH (07:53)
[2017-02-10] MEDS: METOPROLOL SUCC 50MG EXT REL TAB PO SCH (07:53)
[2017-02-10] MEDS: PANTOprazole SOD 40 MG TAB PO SCH (07:54)
[2017-02-10] MEDS: VENLAFAXINE HCL XR 75 MG CAPXR PO SCH (07:54)
[2017-02-10 08:00] VITALS: O2SAT 92
--- NOTE | 2017-02-10 12:16 | Hospitalist Progress Note ---
Hospitalist Progress Note Date of Service Feb 10, 2017. Subjective Pt evaluation today including: conversation w/ patient, physical exam, chart review, lab review, review of studies Pain: None PO Intake: Good Voiding: no voiding problems The patient was seen and examined this morning. Pt reports doing well today. Patient notes that he slept very well overnight, he denies any acute complaints of feeling sore tired at present. Again anticoagulation discussed with the patient, he is very hesitant to agree to any sort of anticoagulation with history of internal bleeding ~5 years ago. This was discussed with his daughter -in-law over the phone by myself yesterday afternoon and she is also hesitant to this although neurology is recommending anticoagulation if possible. Without anticoagulation the patient is likely to experience continued embolic strokes and he seems to be an understanding of this. All his questions and concerns were addressed. Additional Comments: Constitutional: No fever, chills, sweats, fatigue or weakness ENT: No difficulty with swallowing, no sore throat no nasal drainage Respiratory: No shortness of breath, No dyspnea at rest or on exertion, no cough or sputum Cardiovascular: No chest pain, palpitations, or flutter Abdomen: No pain, No constipation, No diarrhea, No nausea, No vomiting Musculoskeletal: No calf pain, No joint pain, No swelling Genitourinary : No dysuria or urinary frequency, No hematuria Neurologic: No numbness/tingling, no difficulty with ambulation, no sensory or motor deficits Psychiatric: Patient states his mood feels improved today Integumentary: No itch, No rash Objective Vital Signs Date Time Temp Pulse Resp B/P (MAP) Pulse Ox O2 Delivery O2 Flow Rate FiO2 02/10/17 08:00 92 Room Air 02/10/17 07:32 36.5 85 18 133/82 (99) 91 02/10/17 00:10 Room Air 02/09/17 23:01 36.4 97 19 134/84 (101) 97 Room Air 02/09/17 16:00 Room Air 02/09/17 14:59 36.2 98 18 124/85 (98) 95 Room Air Physical Exam Notes: General Appearance: WD/WN, no apparent distress Eyes: PERRL, EOMI ENT: hearing grossly normal, pharynx normal, MMM Neck: supple, no JVD Respiratory/Chest: chest non-tender, lungs clear, no respiratory distress, no accessory muscle use Cardiovascular: no murmur, + irregularly irregular (artificial heart valve sound) Abdomen: normal bowel sounds, non tender, soft Extremities: non-tender, no pedal edema, no calf tenderness 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, alert, oriented x 3, + pertinent finding (no strength deficits as testing in bilateral upper and lower extremities) Skin: normal color, warm/dry Laboratory Results Last 24 Hours Test 02/10/17 06:54 Sodium Level 139 mmol/L Potassium Level 3.4 mmol/L Chloride Level 105 mmol/L Carbon Dioxide Level 29 mmol/L Anion Gap 5.0 mmol/L Blood Urea Nitrogen 30 mg/dl Creatinine 1.42 mg/dl Est Creatinine Clear Calc Drug Dose 34.3 ml/min Estimated GFR () 52.6 Estimated GFR (Non- 45.4 BUN/Creatinine Ratio 21.4 Random Glucose 88 mg/dl Calcium Level 8.6 mg/dl Magnesium Level 2.0 mg/dl Triglycerides Level 140 mg/dl Cholesterol Level 113 mg/dl HDL Cholesterol 35 mg/dl LDL Cholesterol, Calculated 50 mg/dl VLDL Cholesterol, Calculated 28 mg/dl Cholesterol/HDL Ratio 3.2 Vitamin B12 Level 1274 pg/mL Folate 9.99 ng/mL Assessment and Plan 81 yo male with recent TAVR for severe , comes to the ED today with confusion , weight loss, depression, ambulatory dysfunction Acute left frontal/ left occipital stroke - Likely caused behavioral changes and confusion. Brain Combo MRI completed and showin-3 mm foci of acute to subacute infarction involve the left frontal and left occipital lobes as above. No significant associated edema, hemorrhage, mass effect or territorial infarct identified. No abnormal enhancement. 2. Atrophy with advanced chronic microvascular ischemic changes. Encephalomalacia and gliosis from remote infarction involves the right temporal parietal lobes. 3. Trace right mastoid effusion. - Neuro consulted: Appreciate recommendations-anticoagulation was discussed with the patient and he is hesitant to agree to this due to history of internal bleeding 5 years ago. Patient notes that he was told to never be on anticoagulation and therefore feels that is more of a risk at this point in time. Neurology noting that the patient will likely experience more embolic strokes in the future if he is not on anticoagulation - Statin and asa 81 mg already ordered - Speech evaluation - PT recommending rehab upon discharge, OT noting that the patient would likely do well at personal care vs SNF, although family seems to want more permanent placement - CM to assist with dc planning Major depressive episode - progressive decline over the past month, daughter feels that it started after the TAVR - patient showing signs of depression and his recent life stressors would make depression logical reaction - Psychiatry on board-appreciate recs, started the patient on Effexor and discontinue Zoloft on 02/10 Patient notes his mood is slightly improved today -consult psych for recs - appreciate Recent TAVR: no new issues of heart failure - can hear the artificial valve sound - Consider echo with new found stroke 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 OT notes also note being slightly disoriented at the end of their exam and not knowing he was in the hospital. It is likely that this waxes and wanes Atrial fibrillation - chronic, continue metoprolol - the patient CANNOT have anticoagulation due to history of bleeding - pt confirms this again Dehydration: NSS overnight and likely tomorrow - Continue IVFs at 75 mL today - Cr slightly improved today, UO good CODE STATUS: FULL CODE Disposition: From home, CM to assist with dc planning, daughter in law would like to look into senior care at this time
[2017-02-10 14:35] VITALS: BP 111/70; PULSE 86; TEMP 36.5; O2SAT 98
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
[2017-02-10] MEDS: SIMVASTATIN 40 MG TAB PO SCH (20:46)
[2017-02-10 23:54] VITALS: BP 126/86; PULSE 97; TEMP 36.5; O2SAT 95
[2017-02-11] MEDS: SODIUM CHLORIDE 0.9% 1000ML 1,000 ML IV SCH (01:51)
[2017-02-11] MEDS: PANTOprazole SOD 40 MG TAB PO SCH (07:46)
[2017-02-11] MEDS: VENLAFAXINE HCL XR 75 MG CAPXR PO SCH (07:46)
[2017-02-11] MEDS: ASPIRIN 81 MG ECTAB PO SCH (07:47)
[2017-02-11] MEDS: METOPROLOL SUCC 50MG EXT REL TAB PO SCH (07:47)
[2017-02-11 07:50] VITALS: BP 163/101; PULSE 91; TEMP 36.5; O2SAT 98
[2017-02-11 08:00] VITALS: O2SAT 98
--- NOTE | 2017-02-11 08:34 | Hospitalist Progress Note ---
Hospitalist Progress Note Date of Service Feb 11, 2017. Objective Vital Signs Date Time Temp Pulse Resp B/P (MAP) Pulse Ox O2 Delivery O2 Flow Rate FiO2 02/11/17 07:50 36.5 91 18 163/101 (121) 98 Room Air 02/11/17 00:01 Room Air 02/10/17 23:54 36.5 97 19 126/86 (99) 95 Room Air 02/10/17 16:00 Room Air 02/10/17 14:35 36.5 86 18 111/70 (84) 98 Room Air Laboratory Results Last 24 Hours Test 02/11/17 07:56 Assessment and Plan 81 yo male with recent TAVR for severe , comes to the ED today with confusion , weight loss, depression, ambulatory dysfunction Acute left frontal/ left occipital stroke - Likely caused behavioral changes and confusion. - Brain Combo MRI completed and showin-3 mm foci of acute to subacute infarction involve the left frontal and left occipital lobes as above. No significant associated edema, hemorrhage, mass effect or territorial infarct identified. No abnormal enhancement. - Neuro consulted: Appreciate recommendations-anticoagulation was discussed with the patient and he is hesitant to agree to this due to history of internal bleeding 5 years ago. Patient notes that he was told to never be on anticoagulation and therefore feels that is more of a risk at this point in time. Neurology noting that the patient will likely experience more embolic strokes in the future if he is not on anticoagulation - Statin and asa 81 mg already ordered - Speech evaluation - PT recommending rehab upon discharge, OT noting that the patient would likely do well at personal care vs SNF, although family seems to want more permanent placement - CM to assist with dc planning - Cardiology consulted - appreciate recs: possible atrial appendage closure ( ie. Watchman JASON procedure) Major depressive episode - progressive decline over the past month, daughter feels that it started after the TAVR - patient showing signs of depression and his recent life stressors would make depression logical reaction - Psychiatry on board-appreciate recs, started the patient on Effexor and discontinue Zoloft on 02/10 Patient notes his mood is slightly improved today - consult psych for recs - appreciate Recent TAVR: no new issues of heart failure - can hear the artificial valve sound - Last echocardiography done in Dec 2016 Pulmonary hypertension - stable Probable vascular dementia - Patient does appear intermittently confused at the end of my visit with him today, he asked me "who is in charge of this place." It seems that he was not oriented to place, although answers all other questions and follows commands appropriately. OT notes also note being slightly disoriented at the end of their exam and not knowing he was in the hospital. It is likely that this waxes and wanes Atrial fibrillation - chronic, continue metoprolol - the patient CANNOT have anticoagulation due to history of bleeding - pt confirms this again Dehydration: NSS overnight and likely tomorrow - Continue IVFs at 75 mL today - Cr slightly improved today, UO good CODE STATUS: FULL CODE Disposition: From home, CM to assist with dc planning, daughter in law would like to look into half-way at this time
[2017-02-11 08:37] LABS: CALCIUM 8.7 mg/dl (8.5-10.1); CREATININE 1.19 mg/dl (0.60-1.40); PHOSPHORUS 2.2 mg/dl (2.5-4.9); POTASSIUM 3.4 mmol/L (3.5-5.1)
[2017-02-11] MEDS ORDERED: CLOPIDOGREL BISULFATE 75 MG TAB PO SCH (09:30)
--- NOTE | 2017-02-11 09:38 | CARDIOLOGY PROGRESS NOTE ---
DATE: 02/11/2017 SUBJECTIVE: Mr. Vega is resting comfortably in bed without complaints of chest pain or dyspnea. We have discussed the possibility of long-term anticoagulation; however, the patient refuses. OBJECTIVE: VITAL SIGNS: Blood pressure is 160/100 with an irregular pulse of 90. Respiratory rate is 18. The patient is afebrile at 36.5 degrees Celsius. Saturation is 98% on room air. NECK: Supple with full carotid upstrokes. There are no carotid bruits. Jugular venous pressure is flat at 90 degrees. There is no thyromegaly. CARDIOVASCULAR: Reveals an irregular rhythm with distant heart sounds. No obvious murmurs. LUNGS: Clear without rales, rhonchi or wheezes. ABDOMEN: Soft without bruits. EXTREMITIES: Reveal intact radial artery pulses bilaterally. There is no peripheral edema. DATA: Electrolytes note sodium of 140, potassium 3.4, chloride 106, bicarb 26, BUN 21, creatinine 1.1, glucose 90. EKG notes atrial fibrillation with a controlled ventricular response and an occasional aberrant beat. An old septal myocardial infarction cannot be excluded. IMPRESSION AND PLAN: 1. Dehydration -- improved with the use of IV fluids. 2. Coronary artery disease -- quiescent on current medications. Had an anterior myocardial infarction in 2003 and a stent placement in the right coronary artery. Was re-catheterized in 05/2014 and found to have a patent stent. 3. Status post transcatheter aortic valve replacement -- 12/2016. Echocardiogram done earlier this month noted normal velocities across the prosthetic valve. 4. Permanent atrial fibrillation -- has not been on anticoagulant therapy since a gastrointestinal bleed in 06/2012. He continues to refuse anticoagulation therapy despite several foci of old infarctions on his brain MRI. 5. History of right pleural effusion -- status post video-assisted thorascopic surgery. 6. History of multiple pulmonary emboli. 7. Hypertension -- borderline control. Consider addition of losartan. 8. Hypercholesterolemia.
[2017-02-11] MEDS ORDERED: EFFSR75 PO (11:46)
[2017-02-11] MEDS ORDERED: PLV75 PO (11:46)
[2017-02-11] MEDS ORDERED: MRLP17X PO (11:46)
--- NOTE | 2017-02-11 12:32 | Discharge Instructions ---
Discharge Instructions Date of Service Feb 11, 2017. 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 Additional Information Patient informed of condition: Yes Advance Directives: Yes DNR: No Level of Care: Skilled Communicable Disease: No Prognosis: Stable Gann Catheter: No Instructions / Follow-Up Instructions / Follow-Up You were admitted to [facility] with behavioral changes, weakness, and dehydration and diagnosed with Acute left frontal/ left occipital stroke. During your stay here you were treated with supportive care, were seen by PT/OT , speech therapy, cardiology and neurology. It was recommended that you be started on anticoagulation but due to hx of internal gastrointestinal bleed you declined this therapy. Risks vs. benefits were discussed. It is possible that you will have recurrent embolic strokes since not being on anticoagulation, and you accepted this risk. Medications: You have been started on Effexor during this admission for your mood You have been started on plavix during this admission, and can stop taking aspirin. Continue taking your medications as above. Follow up: Follow up with your Primary Care Provider within 1 week. Follow up with Neurology within 2-4 weeks or earlier if needed. Continue PT/OT upon discharge Current Hospital Diet Patient's current hospital diet: Regular Diet Discharge Diet Recommended Diet: Regular Diet Pending Studies Studies pending at discharge: no Laboratory Results Hemoglobin A1c Test 02/09/17 05:51 Range/Units Estimated Average Glucose 100 mg/dl Hemoglobin A1c 5.1 4.5-5.6 % Lipid Panel Test 02/10/17 06:54 Range/Units Triglycerides Level 140 0-150 mg/dl Cholesterol Level 113 0-200 mg/dl HDL Cholesterol 35 mg/dl Cholesterol/HDL Ratio 3.2 LDL Cholesterol, Calculated 50 mg/dl Medical Emergencies . Who to Call and When: Medical Emergencies: If at any time you feel your situation is an emergency, please call 911 immediately. . Non-Emergent Contact Non-Emergency issues call your: Primary Care Provider Call Non-Emergent contact if: you have a fever, your pain is not controlled, your pain is worsening, your pain is unusual for you, your pain is concerning you, you have any medication questions other concerns with your health. Call 911 or go directly to the Emergency Department if you experience any of the following: Chest pain, chest tightness, shortness of breath, abdominal pain , lightheadedness, dizziness, gastrointestinal bleeding, or have any other concerns regarding your health. . Past History Medical & Surgical History: (1) Acute embolic stroke (2) Weakness (3) Dehydration (4) Major depressive disorder, single episode, moderate (5) Coronary artery disease (6) Placement of stent in coronary artery . "Provider Documentation" section prepared by Karen Hurtado. . Core Measure Problem Core Measures: None
--- NOTE | 2017-02-11 13:31 | Discharge Summary ---
Discharge Summary Date of Service Feb 11, 2017. Discharge Summary Admission Date: Feb 08, 2017 at 19:16 Discharge Date: Feb 11, 2017 Discharge Disposition: shelter facility Principal Diagnosis: Acute small embolic left frontal and occipital stroke Problems/Secondary Diagnoses: Acute left frontal/ left occipital stroke Major depressive episode Recent TAVR Pulmonary hypertension - stable Probable vascular dementia Atrial fibrillation Dehydration Immunizations: Have You Had Influenza Vaccine: Yes History of Tetanus Vaccine?: unknown History of Pneumococcal: No History of Hepatitis B Vaccine: No Procedures: HEAD WITHOUT CONTRAST (CT) CLINICAL HISTORY: 81 years-old Male with EVALUATE ALTERED MENTAL STATUS/WEAKNESS. Acute altered mental status TECHNIQUE: Multiple axial CT images of the head were obtained without contrast. A dose lowering technique was utilized adhering to the principles of ALARA. CT DOSE: 537.48 mGy.cm COMPARISON: CTA of the head 01/20/2017, brain MR 01/20/2017, CT head 01/19/2017. FINDINGS: No acute intracranial hemorrhage, midline shift, intracranial mass, hydrocephalus, territorial ischemia or abnormal extra-axial collection. Encephalomalacia from remote infarction redemonstrated within the right temporal lobe. Moderate atrophy with ex vacuo ventriculomegaly. Chronic microvascular ischemic changes redemonstrated. Vascular calcifications are seen at the level of the skull base. The calvarium is intact. The paranasal sinuses, mastoid air cells, and middle ear cavities are clear. IMPRESSION: 1. No acute intracranial abnormality. 2. Chronic changes as above. The above report was generated using voice recognition software. It may contain grammatical, syntax or spelling errors. Electronically signed by: Andrzej Cardenas M.D. 02/08/2017 5:53 PM Dictated Date/Time: 02/08/2017 5:49 PM The status of this report is Signed. CHEST ONE VIEW PORTABLE CLINICAL HISTORY: 81 years-old Male presenting with EVALUATE ALTERED MENTAL STATUS/WEAKNESS. TECHNIQUE: Portable upright AP view of the chest was obtained. COMPARISON: 01/20/2017. FINDINGS: Atherosclerosis of aortic arch. Evidence of aortic valve replacement. Cardiac silhouette normal in size, decreased from prior. Prominence of the bilateral johnny. Persistent bibasilar opacities, left greater than right. Small bilateral pleural effusions. No pneumothorax. Degenerative changes of the thoracic spine. Cholecystectomy clips. IMPRESSION: 1. Unchanged bibasilar opacities left greater than right with small bilateral pleural effusions. 2. Apparent decrease in cardiomegaly. 3. Persistent prominence of the johnny likely vascular. Electronically signed by: Pete Askew M.D. 02/08/2017 4:52 PM Dictated Date/Time: 02/08/2017 4:51 PM The status of this report is Signed. BRAIN COMBO HISTORY: 81 years-old Male Memory loss, change in behavior, h/o stroke acute memory loss with history of prior stroke COMPARISON: Brain MRI 01/20/2017, CT head of same day. TECHNIQUE: Multiplanar multisequence MRI the brain was obtained both with and without the use of 7 mL Gadavist. FINDINGS: Artifact from patient's reported metallic foreign body of the right forehead limits several of the sequences, notably the diffusion-weighted sequence with limited evaluation of the frontal lobes. There is a 2 mm focus of restricted diffusion of the left frontal lobe centrum semiovale demonstrating mildly increased T2/FLAIR signal nicely seen on image 18 series 5. Additionally, there is a 3 mm focus of restricted diffusion of the periventricular left frontal lobe, image 16 series 5. 3 mm focus of restricted diffusion involves the left occipital lobe, image 8 series 5. No large territorial infarction identified. No acute intracranial hemorrhage, midline shift, abnormal extra-axial collections, hydrocephalus or intracranial mass. Advanced chronic microvascular ischemic changes manifested by confluent areas of T2/FLAIR prolongation within the subcortical, deep and periventricular white matter of the cerebral hemispheres bilaterally. Moderate atrophy with ex vacuo ventriculomegaly. Remote infarction with encephalomalacia and gliosis involves the right temporal parietal lobe. There is no abnormal intra-axial or extra-axial enhancement identified. Flow venous flow of the right sigmoid sinus. Major flow voids at the level the skull base appear patent. Prior bilateral cataract repair. Mastoid air cells are clear on the left. Trace right mastoid effusion. No significant paranasal sinus disease. Scalp, calvarium and soft tissues are unremarkable. IMPRESSION: 1. 2-3 mm foci of acute to subacute infarction involve the left frontal and left occipital lobes as above. No significant associated edema, hemorrhage, mass effect or territorial infarct identified. No abnormal enhancement. 2. Atrophy with advanced chronic microvascular ischemic changes. Encephalomalacia and gliosis from remote infarction involves the right temporal parietal lobes. 3. Trace right mastoid effusion. The above report was generated using voice recognition software. It may contain grammatical, syntax or spelling errors. Electronically signed by: Andrzej Cardenas M.D. 02/08/2017 10:42 PM Dictated Date/Time: 02/08/2017 10:30 PM The status of this report is Signed. Consultations: Cardiology Neurology Psychiatry PT/OT Speech therapy Medication Reconciliation New Medications: Clopidogrel Bisulfate (Clopidogrel) 75 Mg Tab 75 MG PO QAM for 30 Days, #30 TAB Polyethylene (Miralax) 17 Gm Pow 17 GM PO DAILY PRN for Constipation for 30 Days, #30 DOSE Venlafaxine Hcl (Effexor Extended Rel) 75 Mg Capcr 75 MG PO QAM for 30 Days, #30 DOSE 0 Refills Continued Medications: Bumetanide (Bumex) 1 Mg Tab 1 MG PO QAM, TAB Cyanocobalamin (Vitamin B12) 1,000 Mcg Tab 1000 MCG PO DAILY Folic Acid (Folvite) 1 Mg Tab 1 MG PO 6XWK, TAB TAKE THIS MEDICATION EVERY DAY OF THE WEEK EXCEPT ON THE DAY METHOTREXATE IS TAKEN Methotrexate Sodium (Methotrexate) 2.5 Mg Tab 12.5 MG PO WK, TAB TAKE THIS MEDICATION EVERY TUESDAY Metoprolol Succinate (Metoprolol Succinate ER) 100 Mg Tabcr 100 MG PO QAM Nitroglycerin (Nitrostat) 0.4 Mg Tab 0.4 MG UT UD PRN for Chest Pain, BTL PLACE ONE TABLET UNDER THE TONGUE EVERY 5 MINUTES FOR UP TO 3 DOSES IF NEEDED FOR CHEST PAIN Omeprazole (Prilosec) 20 Mg Capcr 20 MG PO QAM, CAP Prednisone (Prednisone) 1 Mg Tab 2 MG PO QAM, TAB Ranitidine (Zantac) 150 Mg Tab 150 MG PO BID PRN for Heartburn, TAB Simvastatin (Zocor) 40 Mg Tab 40 MG PO HS Triamcinolone Acetonide (Nasal (Nasacort Allergy 24Hr) 55 Mcg/Act Spr 1 SPRAY ALANA BID PRN for Nasal Congestion Discontinued Medications: Aspirin (Aspirin Ec) 81 Mg Tab 81 MG PO QAM Clindamycin Hcl (Clindamycin Hcl) 300 Mg Cap 300 MG PO QID for 10 Days, #40 CAP Sertraline (Zoloft) 25 Mg Tab 25 MG PO DAILY, TAB TAKE ONE 25 MG TABLET ALONG WITH ONE 50 MG TABLET TO EQUAL 75 MG DAILY DOSE Sertraline (Zoloft) 50 Mg Tab 50 MG PO DAILY, TAB TAKE ONE 50 MG TABLET ALONG WITH ONE 25 MG TABLET TO EQUAL 75 MG DAILY DOSE Discharge Exam The patient was seen and examined this morning. Patient reports feeling well today. He is slightly groggy whenever I going to see him, but awakens easily. He denies any new complaints. Patient states he slept well overnight. He was up earlier this morning and ate breakfast and was ambulating about the room without any difficulty. He denies any issues with chest pain, palpitation, flutter, shortness of breath, chest heaviness, lightheadedness or dizziness. He feels his mood is unchanged compared to yesterday. ROS: Constitutional: No fever, sweats or chills Eyes: No diplopia, no worsening or blurred vision ENT: normal hearing, no trouble swallowing Respiratory: No cough, sputum, dyspnea at rest or on exertion Cardiovascular: No chest pain, tightness or palpitations Abdomen: No pain, nausea, vomiting, diarrhea or constipation Musculoskeletal: No joint pain, calf pain, swelling Neurologic: No weakness, numbness/tingling, or balance problems Skin: No rash or itch PE: General Appearance: WD/WN, no apparent distress Eyes: PERRL, EOMI ENT: hearing grossly normal, pharynx normal, MMM Neck: supple, no JVD Respiratory/Chest: chest non-tender, lungs clear, no respiratory distress, no accessory muscle use Cardiovascular: no murmur, + irregularly irregular (artificial heart valve sound) Abdomen: normal bowel sounds, non tender, soft Extremities: non-tender, no pedal edema, no calf tenderness Neurologic/Psychiatric: operator technician II-XII nml as tested, alert, oriented x 3, + pertinent finding (no strength deficits as testing in bilateral upper and lower extremities) Skin: normal color, warm/dry Hospital Course 81 yo male with recent TAVR for severe , comes to the ED today with confusion , weight loss, depression, ambulatory dysfunction Acute left frontal/ left occipital stroke - Likely caused behavioral changes and confusion. - Brain Combo MRI completed and showin-3 mm foci of acute to subacute infarction involve the left frontal and left occipital lobes as above. No significant associated edema, hemorrhage, mass effect or territorial infarct identified. No abnormal enhancement. - Neuro consulted: Appreciate recommendations-anticoagulation was discussed with the patient and he is hesitant to agree to this due to history of internal bleeding 5 years ago. Patient notes that he was told to never be on anticoagulation and therefore feels that is more of a risk at this point in time. Neurology noting that the patient will likely experience more embolic strokes in the future if he is not on anticoagulation - this was discussed with the patient in detail, and he still is adamant that he does not want anticoagulation- this was discussed with [id number]. Therefore patient was not prescribed anticoagulation therapy. - Initiated Plavix on 02/11 , stop asa 81 mg - Statin on board - Speech evaluation completed and pt passed - PT recommending rehab upon discharge, OT noting that the patient would likely do well at personal care vs SNF - Pt discharged to [facility] - Cardiology consulted - appreciate recs: possible atrial appendage closure ( ie. Watchman JASON procedure) - Dr. Munoz discussed this with the patient - can continue on outpatient follow up in 1-2 weeks. Major depressive episode - progressive decline over the past month, daughter feels that it started after the TAVR - patient showing signs of depression and his recent life stressors would make depression logical reaction - Nursing reported visual hallucinations during admission- pt would not confirm , possible that this is partially hospital acquired delirium. - Psychiatry on board-appreciate recs, started the patient on Effexor and discontinue Zoloft on 02/10 Recent TAVR: no new issues of heart failure - can hear the artificial valve sound - Last echocardiography done in Dec 2016 Pulmonary hypertension - stable Probable vascular dementia - Patient does appear intermittently confused +/- hospital acquired delirium with possible visual hallucinations. Waxes and wanes. Psychiatry on board. Atrial fibrillation - chronic, continue metoprolol - the patient CANNOT have anticoagulation due to history of bleeding - risk vs benefit discussed as above. Dehydration: - Resolved - Cr improved, UO good CODE STATUS: FULL CODE Disposition: From home, to assist with dc planning,discharge to SNF Total Time Spent: Greater than 30 minutes This includes examination of the patient, discharge planning, medication reconciliation, and communication with other providers. Discharge Instructions Please refer to the electronic Patient Visit Report (Discharge Instructions) for additional information. Follow-Up Follow up with your Primary Care Provider within 1 week. Follow up with Neurology within 2-4 weeks or earlier if needed. Continue PT/OT upon discharge Additional Copies To Tristen Preston M.D.
[2017-02-11 15:29] VITALS: BP 151/97; PULSE 106; TEMP 36.4; O2SAT 96
== END 2017-02-11 17:00 | DRG 65 ==
LOC: EDBD 16:24 → C.EDB 16:25 → C.MS2W 19:16 → ENRESERV 19:27
PROVIDERS: ADMIT Internal Medicine; ATTEND Hospitalist
DX: I63.8 Other cerebral infarction (principal); N17.9 Acute kidney failure, unspecified; F32.1 Major depressive disorder, single episode, moderate; N18.3 Chronic kidney disease, stage 3 (moderate); J44.9 Chronic obstructive pulmonary disease, unspecified; K21.9 Gastro-esophageal reflux disease without esophagitis; I12.9 Hypertensive chronic kidney disease with stage 1 through stage 4 chronic kidney disease, or unspecified chronic kidney disease; I48.2 Chronic atrial fibrillation; E86.0 Dehydration; I27.20 Pulmonary hypertension, unspecified; F01.50 Vascular dementia, unspecified severity, without behavioral disturbance, psychotic disturbance, mood disturbance, and anxiety; R44.1 Visual hallucinations; E78.00 Pure hypercholesterolemia, unspecified; Z79.52 Long term (current) use of systemic steroids; Z79.82 Long term (current) use of aspirin; Z79.899 Other long term (current) drug therapy; Z95.2 Presence of prosthetic heart valve; Z87.891 Personal history of nicotine dependence

== ENCOUNTER 2017-03-12 12:22 | Emergency (ER) | payer OTHER, BC ==
[~2017-03-12] VITALS: Ht 170.2 cm; Wt 64.4 kg
[~2017-03-12 12:22] MED LIST changes: -ASPI81TA28 PO; +BUME1TAB PO; -CLIN300C10 PO; +CYAN100020 PO; +EFFSR75 PO; +FOLI1TAB8 PO; -METO100T44 PO; +MRLP17X PO; +PLV75 PO; +PRD/1 PO; +PRLSR20 PO; +SIMV40TA2 PO; +TPRSR/100 PO; +TRIA1SPR4 NAE; +ZNTT/150 PO
[2017-03-12 12:32] VITALS: Ht 170.2 cm; Wt 64.4 kg
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
[2017-03-12 13:00] LABS: BASO % 0.1 %; BASO ABS # 0.01 K/uL (0-0.2); EOS % 0.1 %; EOS ABS # 0.01 K/uL (0-0.5); HEMATOCRIT 40.8 % (42-52); HEMOGLOBIN 13.6 g/dL (14.0-18.0); IG# 0.06 K/uL (0.00-0.02); LYMPH ABS # 0.86 K/uL (1.2-3.4); MEAN CELL VOLUME 98.6 fL (80-100); MEAN CORPUSCULAR HEMOGLOBIN 32.9 pg (25-34); MEAN CORPUSCULAR HGB CONC 33.3 g/dl (32-36); MEAN PLATELET VOLUME 10.9 fL (7.4-10.4); MONO ABS # 0.86 K/uL (0.11-0.59); NEUT % 79.1 %; NEUT ABS # 6.82 K/uL (1.4-6.5); PLATELET COUNT 207 K/uL (130-400); RED CELL DISTRIBUTION WIDTH CV 15.2 % (11.5-14.5); RED CELL DISTRIBUTION WIDTH SD 54.4 fL (36.4-46.3); WHITE BLOOD COUNT 8.62 K/uL (4.8-10.8)
[2017-03-12 13:09] LABS: PTT PATIENT 31.5 SECONDS (21.0-31.0)
[2017-03-12 13:19] LABS: CALCIUM 9.4 mg/dl (8.5-10.1); CREATININE 1.71 mg/dl (0.60-1.40)
[2017-03-12] MEDS ORDERED: DIPH25CA65 PO (13:33)
[2017-03-12] MEDS ORDERED: CEFTRIAXONE SOD INJ 1 GM ADDVIAL IV STA (14:34)
[2017-03-12] MEDS ORDERED: KFL/250 PO (14:37)
[2017-03-12 16:02] VITALS: TEMP 36.4
[2017-03-12 17:14] VITALS: BP 109/79; PULSE 85; O2SAT 99
--- NOTE | 2017-03-15 13:28 | Pharmacy Progress Note ---
ED Pharmacist Progress Note Date of Service: Mar 15, 2017. Dr Umanzor had reviewed urine cx results and requested abx therapy be changed based upon e coli sensitivities. New Rx for Macrobid 100mg PO BID x 7 days sent to [facility] via fax ([phone] ) per their request. Fax also contained instructions to stop the Keflex as e coli was resistant. Received fax confirmation that Rx was sent successfully.
== END 2017-03-12 17:17 | disposition home or self-care (01) ==
LOC: EDBD 12:22 → C.EDA 12:23
DX: N48.89 Other specified disorders of penis (principal); N39.0 Urinary tract infection, site not specified; I25.10 Atherosclerotic heart disease of native coronary artery without angina pectoris; F32.9 Major depressive disorder, single episode, unspecified; Z87.891 Personal history of nicotine dependence

== ENCOUNTER 2017-04-09 17:03 | Emergency (ER) | payer OTHER, BC ==
[~2017-04-09 17:03] MED LIST changes: +DIPH25CA65 PO; -ZNTT/150 PO
[2017-04-09 17:08] VITALS: TEMP 36.1
[2017-04-09] MEDS ORDERED: CLOP1TAB15 PO (18:08)
[2017-04-09] MEDS ORDERED: VENL75CA PO (18:08)
[2017-04-09] MEDS ORDERED: POLY335019 PO (18:08)
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
[2017-04-09 19:18] LABS: BASO % 0.1 %; BASO ABS # 0.01 K/uL (0-0.2); EOS % 0.3 %; EOS ABS # 0.03 K/uL (0-0.5); HEMATOCRIT 43.3 % (42-52); HEMOGLOBIN 14.5 g/dL (14.0-18.0); IG# 0.06 K/uL (0.00-0.02); LYMPH % 6.4 %; LYMPH ABS # 0.57 K/uL (1.2-3.4); MEAN CELL VOLUME 97.7 fL (80-100); MEAN CORPUSCULAR HEMOGLOBIN 32.7 pg (25-34); MEAN CORPUSCULAR HGB CONC 33.5 g/dl (32-36); MEAN PLATELET VOLUME 11.3 fL (7.4-10.4); MONO % 7.5 %; MONO ABS # 0.67 K/uL (0.11-0.59); NEUT ABS # 7.59 K/uL (1.4-6.5); PLATELET COUNT 229 K/uL (130-400); RED CELL DISTRIBUTION WIDTH CV 16.3 % (11.5-14.5); RED CELL DISTRIBUTION WIDTH SD 56.8 fL (36.4-46.3); WHITE BLOOD COUNT 8.93 K/uL (4.8-10.8)
--- NOTE | 2017-04-09 19:30 | DIAGNOSTIC IMAGING REPORT ---
L HAND MIN 3 VIEWS ROUTINE CLINICAL HISTORY: 3rd phalanx abscess/cellulitis COMPARISON: None FINDINGS: There is soft tissue swelling of the left third finger. There is no fracture. There is no evidence for osteomyelitis. 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 Marked joint space narrowing of the left second metacarpophalangeal joint is noted. IMPRESSION: 1. No acute fracture or evidence of osteomyelitis. 2. Left third digit soft tissue swelling. Electronically signed by: Teddy Ling M.D. 04/09/2017 7:29 PM Dictated Date/Time: 04/09/2017 7:26 PM
[2017-04-09 19:38] LABS: BLOOD UREA NITROGEN 55 mg/dl (7-18); CALCIUM 9.4 mg/dl (8.5-10.1); CARBON DIOXIDE 29 mmol/L (21-32); CREATININE 2.65 mg/dl (0.60-1.40); GLUCOSE 116 mg/dl (70-99); SODIUM 135 mmol/L (136-145)
[2017-04-09] MEDS ORDERED: XYLOCAINE 1%/SOD BICARB 20 ML VIAL INFIL ONE (19:45)
[2017-04-09] MEDS ORDERED: DIPHTHERIA/TETANUS/PERTUSSIS 0.5 ML SYR/VIAL IM. ONE (19:45)
[2017-04-09] MEDS ORDERED: SODIUM CHLORIDE 0.9% 500ML 500 ML IV STA (19:45)
[2017-04-09] MEDS ORDERED: CLINDAMYCIN 600 MG/54 ML D5W IV ONE (20:00)
[2017-04-09] MEDS ORDERED: SACC250C3 PO (22:40)
[2017-04-09] MEDS ORDERED: CLIN150C15 PO (22:40)
[2017-04-09] MEDS ORDERED: CLINDAMYCIN HCL 150 MG CAP PO STA (22:54)
[2017-04-09 23:04] VITALS: BP 126/72; PULSE 95; O2SAT 96
== END 2017-04-09 23:04 | disposition home or self-care (01) ==
LOC: C.EDB 17:06 → C.EDC 23:04
DX: L02.512 Cutaneous abscess of left hand (principal); N18.9 Chronic kidney disease, unspecified; I25.10 Atherosclerotic heart disease of native coronary artery without angina pectoris; F32.1 Major depressive disorder, single episode, moderate; Z23 Encounter for immunization; Z86.73 Personal history of transient ischemic attack (TIA), and cerebral infarction without residual deficits; Z87.442 Personal history of urinary calculi; Z87.891 Personal history of nicotine dependence; Z90.49 Acquired absence of other specified parts of digestive tract; Z98.61 Coronary angioplasty status; Z98.890 Other specified postprocedural states; Z79.02 Long term (current) use of antithrombotics/antiplatelets; Z79.899 Other long term (current) drug therapy

== ENCOUNTER 2017-04-17 23:28 | Inpatient (IN) | payer OTHER, BC ==
[~2017-04-17] VITALS: Ht 170.2 cm; Wt 58.7 kg
[~2017-04-17 23:28] MED LIST changes: +CLIN150C15 PO; +CLOP1TAB15 PO; -EFFSR75 PO; -MRLP17X PO; -PLV75 PO; +POLY335019 PO; +SACC250C3 PO; +VENL75CA PO
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
[2017-04-18] VITALS (7 sets, daily range): BP systolic 132–140; BP diastolic 62–90; PULSE 98–125; TEMP 34.7–36.6; O2SAT 90–100; Ht 170.2 cm; Wt 58.7 kg
[2017-04-18] MEDS ORDERED: XYLOCAINE 1%/SOD BICARB 20 ML VIAL INFIL ONE (00:15)
[2017-04-18] MEDS ORDERED: LACTCAP26 PO (00:20)
[2017-04-18] MEDS ORDERED: [UNRECOGNIZED DRUG - OTHER] TD (00:20)
[2017-04-18] MEDS ORDERED: CLC/150 PO (00:20)
[2017-04-18] MEDS ORDERED: ACET-1311 PO (00:20)
[2017-04-18 00:21] LABS: HEMATOCRIT 43.6 % (42-52); HEMOGLOBIN 14.4 g/dL (14.0-18.0); MEAN CELL VOLUME 96.7 fL (80-100); MEAN CORPUSCULAR HEMOGLOBIN 31.9 pg (25-34); RED CELL DISTRIBUTION WIDTH CV 17.2 % (11.5-14.5); WHITE BLOOD COUNT 6.28 K/uL (4.8-10.8)
[2017-04-18 00:31] LABS: PLATELET COUNT 72 K/uL (130-400)
[2017-04-18 00:44] LABS: BASO % 0.2 %; BASO ABS # 0.01 K/uL (0-0.2); EOS % 1.1 %; EOS ABS # 0.07 K/uL (0-0.5); IG# 0.03 K/uL (0.00-0.02); LYMPH ABS # 0.69 K/uL (1.2-3.4); MONO % 5.3 %; MONO ABS # 0.33 K/uL (0.11-0.59); NEUT % 81.9 %; NEUT ABS # 5.15 K/uL (1.4-6.5)
[2017-04-18 00:58] LABS: CALCIUM 9.5 mg/dl (8.5-10.1); CREATININE 3.15 mg/dl (0.60-1.40)
[2017-04-18] MEDS ORDERED: SODIUM CHLORIDE 0.9% 500ML 500 ML IV STA (01:02)
[2017-04-18] MEDS ORDERED: SODIUM CHLORIDE 0.9% 1000ML 1,000 ML IV STA (01:16)
[2017-04-18] MEDS ORDERED: POLYETHYLENE (MIRALAX) 17 GM PACK PO PRN ×2 (04:30→06:30)
[2017-04-18] MEDS ORDERED: ACETAMINOPHEN 325 MG TAB PO PRN ×2 (04:30)
[2017-04-18] MEDS ORDERED: NITROGLYCERIN 0.4 MG SL PER TAB CHARGE UT PRN (04:30)
[2017-04-18] MEDS ORDERED: ONDANSETRON INJ 2 MG/ML 2 ML VIAL IV PRN (04:30)
[2017-04-18] MEDS ORDERED: MAGNESIUM HYDROXIDE SUSP 30 ML UDC PO PRN (04:30)
[2017-04-18] MEDS ORDERED: IV FLUIDS COMPLETED PRN (04:45)
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
[2017-04-18] MEDS: SODIUM CHLORIDE 0.9% 1000ML 1,000 ML IV SCH ×2 (06:40→16:41)
--- NOTE | 2017-04-18 06:47 | DIAGNOSTIC IMAGING REPORT ---
HEAD WITHOUT CONTRAST (CT) CLINICAL HISTORY: 81 years-old Male with forehead trauma. Acute head injury. TECHNIQUE: Multiple axial CT images of the head were obtained without contrast. A dose lowering technique was utilized adhering to the principles of ALARA. CT DOSE: 1098.15 mGy.cm COMPARISON: CT head 02/08/2017. FINDINGS: No acute intracranial hemorrhage, midline shift, intracranial mass, hydrocephalus, territorial ischemia or abnormal extra-axial collection. Moderate atrophy with ex vacuo ventriculomegaly. Ill-defined areas of low-attenuation within the deep, subcortical and periventricular white matter is compatible with chronic microvascular ischemic changes. Encephalomalacia of the right temporal parietal lobe redemonstrated compatible with remote infarction. Cerebral vascular calcifications are seen at the level of the skull base. The calvarium is intact. The paranasal sinuses, mastoid air cells, and middle ear cavities are clear. There is an unchanged 3 mm metallic density focus within the right prefrontal soft tissues nicely seen on image 15 series 3. Mild right frontal scalp soft tissue swelling is noted without large hematoma. The orbits are unremarkable. IMPRESSION: 1. No acute intracranial abnormality or calvarial fracture. 2. Mild right frontal scalp soft tissue swelling. The above report was generated using voice recognition software. It may contain grammatical, syntax or spelling errors. Electronically signed by: Andrzej Cardenas M.D. 04/18/2017 6:45 AM Dictated Date/Time: 04/18/2017 6:42 AM
--- NOTE | 2017-04-18 06:58 | DIAGNOSTIC IMAGING REPORT ---
CT OF THE CERVICAL SPINE WITHOUT CONTRAST CLINICAL HISTORY: fall - neck pain COMPARISON STUDY: CTA of the neck January 20, 2017. TECHNIQUE: Helical axial images of the cervical spine were obtained without IV contrast. Sagittal and coronal reconstructions were viewed. A dose lowering technique was utilized adhering to the principles of ALARA. FINDINGS: No cervical spine fracture is noted. The craniocervical junction is intact. There is moderate multilevel facet arthrosis and degenerative disc disease. Trace right apical pleural thickening/fluid is unchanged since chest CT of June 08, 2014. There is no prevertebral edema. A 2.9 cm hypodense left lobe thyroid nodule is unchanged. IMPRESSION: No acute cervical spine fracture or subluxation. Electronically signed by: Teddy Ling M.D. 04/18/2017 6:56 AM Dictated Date/Time: 04/18/2017 6:53 AM
[2017-04-18] MEDS ORDERED: PNEUMOCOCCAL POLYSACCHARIDES 25 MCG/0.5 ML VIAL/SYR IM. ONE (07:00)
[2017-04-18] MEDS ORDERED: INFLUENZA VACCINE HIGH DOSE 65+ 0.5 ML SYR IM. ONE (07:00)
[2017-04-18] MEDS ORDERED: INFLUENZA ADMINISTRATION CHARGE ONE (07:00)
[2017-04-18] MEDS ORDERED: PNEUMOCOCCAL ADMINISTRATION CHARGE ONE (07:00)
[2017-04-18] MEDS: CYANOCOBALAMIN 500 MCG TAB (VIT B-12) PO SCH (08:18)
[2017-04-18] MEDS: CLINDAMYCIN HCL 150 MG CAP PO SCH ×4 (08:19→22:15)
[2017-04-18] MEDS: PANTOprazole SOD 40 MG TAB PO SCH (08:19)
[2017-04-18] MEDS: METOPROLOL SUCC 50MG EXT REL TAB PO SCH (08:20)
[2017-04-18 09:50] LABS: CALCIUM 9.4 mg/dl (8.5-10.1); CREATININE 3.01 mg/dl (0.60-1.40); POTASSIUM 4.2 mmol/L (3.5-5.1)
[2017-04-18] MEDS ORDERED: VENL75CA PO (12:10)
[2017-04-18] MEDS: LACTOBACILLUS ACIDOPHILUS (FLORANEX) TAB PO SCH (12:21)
--- NOTE | 2017-04-18 15:55 | ECHOCARDIOGRAM REPORT ---
*NOTICE TO RECEIVING CONSTITUTION PARTY AGENCY This information is strictly Confidential and protected under [place] law. [place] law prohibits you from making any further disclosure of this information unless further disclosure is expressly permitted by the written consent of the person to whom it pertains or is authorized by law. A general authorization for the release of medical or other information is not sufficient for this purpose. Hospital accepts no responsibility if the information is made available to any other person, INCLUDING THE PATIENT. Interpretation Summary * Name: BROCK BLANKENSHIP Study Date: 04/18/2017 02:45 PM * Patient Location: [facility] [place]\S\E405\S\1 * : 1935 (M/d/yyyy) Gender: Male Height: 67 in * Age: 81 yrs Ethnicity: [place] Weight: 129 lb * Ordering Physician: Aurora Gomez * Referring Physician: Kehinde Barrett * Performed By: Federica Bright RDCS * * Reason For Study: ASSESS FOR THROMBUS, H/O AFIB * BSA: 1.7 m2 * -- Conclusions -- * The left ventricular cavity is small. * There is mild concentric left ventricular hypertrophy. * The left ventricle is hyperdynamic. * The left atrium is moderately dilated. * The right atrium is moderate to severely dilated. * There is a bioprosthetic aortic valve. * There is mild mitral regurgitation. * There is moderate tricuspid regurgitation. * The inferior vena cava is mildly dilated. * Compared to an echocardiogram from 01/20/2017, the pulmonary pressures are slightly lower otherwise no significant difference. Procedure Details * Left Ventricle The left ventricular cavity is small. There is mild concentric left ventricular hypertrophy. Ejection Fraction = >70 %. The left ventricle is hyperdynamic. The left ventricular wall motion is normal. * Right Ventricle The right ventricle is normal in size and function. * Atria The left atrium is moderately dilated. The right atrium is moderate to severely dilated. * Mitral Valve There is moderate mitral annular calcification. There is mild mitral regurgitation. * Tricuspid Valve The tricuspid valve is not well visualized, but is grossly normal. There is moderate tricuspid regurgitation. * Aortic Valve Trace aortic regurgitation. There is a bioprosthetic aortic valve. The gradient is normal for this prosthetic aortic valve. * Pericardium/Pleural There is no pericardial effusion. * Great Vessels The inferior vena cava is mildly dilated. * * MMode 2D Measurements and Calculations * IVSd 1.5 cm * IVSs 2.0 cm * * LVIDd 3.2 cm * LVIDs 2.1 cm * LVPWd 1.8 cm * LVPWs 1.6 cm * * IVS/LVPW 0.81 * FS 32.8 % * EDV(Teich) 40.3 ml * ESV(Teich) 15.0 ml * EF(Teich) 62.7 % * * EDV(cubed) 32.1 ml * ESV(cubed) 9.7 ml * EF(cubed) 69.6 % * % IVS thick 34.7 % * % LVPW thick -10.56 % * * LV mass(C)d 202.1 grams * LV mass(C)dI 120.4 grams/m\S\2 * LV mass(C)s 152.7 grams * LV mass(C)sI 91.0 grams/m\S\2 * * SV(Teich) 25.3 ml * SI(Teich) 15.0 ml/m\S\2 * SV(cubed) 22.4 ml * SI(cubed) 13.3 ml/m\S\2 * * LA dimension 4.3 cm * * LVOT diam 2.0 cm * LVOT area 3.1 cm\S\2 * * LVAd ap4 13.6 cm\S\2 * LVLd ap4 5.7 cm * EDV(MOD-sp4) 28.1 ml * EDV(sp4-el) 27.3 ml * LVAs ap4 8.0 cm\S\2 * LVLs ap4 5.5 cm * ESV(MOD-sp4) 10.2 ml * ESV(sp4-el) 9.8 ml * EF(MOD-sp4) 63.7 % * EF(sp4-el) 64.1 % * * LVAd ap2 15.4 cm\S\2 * LVLd ap2 6.9 cm * EDV(MOD-sp2) 29.1 ml * EDV(sp2-el) 28.9 ml * LVAs ap2 8.7 cm\S\2 * LVLs ap2 6.4 cm * ESV(MOD-sp2) 11.4 ml * ESV(sp2-el) 10.2 ml * EF(MOD-sp2) 61.0 % * EF(sp2-el) 64.7 % * * LVLd %diff 17.6 % * EDV(MOD-bp) 31.1 ml * LVLs %diff 13.8 % * ESV(MOD-bp) 11.3 ml * EF(MOD-bp) 63.7 % * * SV(MOD-sp4) 17.9 ml * SI(MOD-sp4) 10.7 ml/m\S\2 * * SV(MOD-sp2) 17.8 ml * SI(MOD-sp2) 10.6 ml/m\S\2 * * SV(MOD-bp) 19.8 ml * SI(MOD-bp) 11.8 ml/m\S\2 * * SV(sp4-el) 17.5 ml * SI(sp4-el) 10.4 ml/m\S\2 * * SV(sp2-el) 18.7 ml * SI(sp2-el) 11.1 ml/m\S\2 * * * Doppler Measurements and Calculations * MV E max kamari 126.7 cm/sec * * MV dec time 0.20 sec * * Ao V2 max 158.5 cm/sec * Ao max PG 10.1 mmHg * Ao max PG (full) 8.4 mmHg * CHRISTIAN(V,A) 1.2 cm\S\2 * CHRISTIAN(V,D) 1.2 cm\S\2 * * LV V1 max PG 1.6 mmHg * * LV V1 max 63.7 cm/sec * * TR max kamari 286.0 cm/sec * * * *
--- NOTE | 2017-04-18 16:09 | Progress Note ---
Progress Note Date of Service Apr 18, 2017. (Aurora Gomez ., PA-C) Progress Note Patient admitted after midnight. Seen and examined by me today. Patient not offering any ROS to me, does not answer my questioning. Unable to obtain reliable ROS. Nursing reports dysphagia and trouble swallowing pills. Physical exam pertinent for diffuse ecchymoses across hand and arms. Laceration closed with sutures on forehead, obscured by blood. Small abrasion on bridge of nose, per nursing pt was picking at this. Bluish finger tips, TTP when assess for capillary refill, which is slow. Fingers cool to the touch. Toes cool to the touch. Toes on right foot slightly bluish. A/P: Ambulatory dysfunction, fall -PT/OT pending -Head CT no acute disease -Plavix held Decreased oral intake, dysphagia--smoking h/o. Pt very concerning for malignancy -Speech therapy evaluate and treat: reported throat pain, placed on pureed diet w/aspiration precautions -Check CT soft tissue neck, CT chest to assess for malignancy -Could be contributing to renal failure Acute renal failure--previous Cr baseline 1.4-1.8 -Creatinine 3.01 on 04/18, down from 3.15 -Continue NSS at 100 cc/hr -Check renal ultrasound Peripheral vascular disease -Check echo to assess for thrombus, possibly throwing clots distally to extremities (Aurora Gomez ., PA-C) Attending Note & Attestation: Pt seen/examined, chart reviewed, care plan d/w ISAI Gomez. I agree w/ the allen components of her documentation. Pt confused during my visit. Did report 60 pounds of weight loss over the last year. Mentions his ; he is currently living alone. Unable to provide much else in the way of history except having "trouble swallowing" and his voice has changed "of late". HRs low 100s other vital signs stable gen - cacechtic, confused neck - no JVD, no obvious lymphadenopathy throat - no obvious lesions heart - tachy, irregular lungs - course BS b/l but decent airation; barrel chest abd - scaphoid/very thin abdomen, no masses, no tenderness ext - cyanotic finger tips with poor cap refill but radial pulses 2+ b/l wrists ; ?synovitis of left 4th finger MCP/PIP skin - scattered ecchymoses on limbs; large dressing in place on forehead Creatinine about 3 A/P: 1. severe protein calorie malnutrition 2. extreme weight loss 3. acute renal failure in setting of CKD stage 3 4. uncontrolled a. fib 5. cyanotic finger tips 6. COPD 7. encephalopathy - metabolic from #3? other? 8. dysphagia with voice changes check echo, r/o source of thrombus/embolus for #[address] neck and chest - r/o malignancy speech consult for #8 fluids for #3, serial BMP; renal u/s, r/o mass or obstruction AV rita agents for rate control for a. fib PT, OT this gentleman is clearly failing to thrive at home and would benefit from placement Ashok Ornelas MD (Ashok Ornelas MD)
--- NOTE | 2017-04-18 17:53 | DIAGNOSTIC IMAGING REPORT ---
CT SOFT TISSUE NECK WITHOUT CT DOSE: 680.95 mGy.cm CLINICAL HISTORY: Dysphagia. Change in voice. TECHNIQUE: Unenhanced images were obtained in the transverse plane. A dose lowering technique was utilized adhering to the principles of ALARA. COMPARISON STUDY: None. FINDINGS: The visualized portions of the brain reveal a probable old right occipital infarct and right temporal lobe infarct. The visualized portions lung apices reveal no suspicious masses. There are postsurgical changes of the right. There is a stable low-density 26 mm left lobe thyroid nodule. No salivary gland masses are visualized given the limitations of a noncontrast study. No mucosal space masses are visualized given the limitations of a noncontrast study. There is no pathologic adenopathy. IMPRESSION: 1. Examination limited due to the lack of intravenous contrast 2. Stable 26 mm left lobe thyroid nodule 3. No mucosal space masses identified. No evidence of pathologic adenopathy. 4. Suspected old right temporal and occipital lobe infarcts Electronically signed by: Zia Suazo M.D. 04/18/2017 5:51 PM Dictated Date/Time: 04/18/2017 5:48 PM
--- NOTE | 2017-04-18 17:58 | DIAGNOSTIC IMAGING REPORT ---
(CHEST) THORAX WITHOUT CT DOSE: HISTORY: Dysphagia. Voice change. assess for malignancy TECHNIQUE: Multiaxial CT images of the chest were performed without contrast. A dose lowering technique was utilized adhering to the principles of ALARA. COMPARISON: Chest CT 06/08/2014. FINDINGS: No pneumothorax. The central airways are patent. A 2 mm punctate density within the left lower lobe on image 209. This favors a calcified granuloma. Suture material within the right lung apex is again noted. Linear scarlike densities within the right lung base remain unchanged. There is a regular focal density base of left lower lobe which is also stable. This favors round atelectasis given the long-term stability and chronic trace left pleural effusion. Small right pleural effusion is nonspecific change. Small left pleural fusion has improved. Pleural hyperdensity on the right is consistent with prior pleurodesis. This remains unchanged. No suspicious lytic or blastic osseous lesions. No change in the 2.3 cm left thyroid nodule. The heart is normal in size. 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 Normal caliber thoracic aorta. Cholecystectomy. Visualized unenhanced liver and adrenal glands are unremarkable. Bilateral perinephric edema which is likely chronic. Partially visualized 4.3 cm cyst within the right kidney. Calcified granuloma within the spleen. Evaluation for mediastinal abnormality is suboptimal due to the lack of intravenous contrast. However, no mediastinal or hilar lymphadenopathy. No additional masses identified. IMPRESSION: 1. No CT evidence for malignancy within the chest. 2. Chronic changes as described above including small bilateral pleural effusions. The left pleural effusion has improved in the interval. 3. Stable 2.3 cm left thyroid nodule. Electronically signed by: Virgil Schultz M.D. 04/18/2017 5:56 PM Dictated Date/Time: 04/18/2017 5:46 PM
[2017-04-18] MEDS ORDERED: CLOPIDOGREL BISULFATE 75 MG TAB PO SCH (21:00)
--- NOTE | 2017-04-18 22:08 | DIAGNOSTIC IMAGING REPORT ---
RENAL ULTRASOUND HISTORY: acute renal failure COMPARISON: Abdomen and pelvis CT 12/24/2015. FINDINGS: Right kidney: 8.6 cm. No hydronephrosis. Scattered areas of cortical scarring and increased cortical echogenicity. A 4 mm stone within the right kidney. Multiple right renal cysts with the largest measuring 4.3 cm. Left kidney: 8.7 cm. No hydronephrosis. Scattered areas of cortical scarring and increased cortical echogenicity. A 2.4 cm cyst. Bladder: No bladder wall thickening. IMPRESSION: 1. No hydronephrosis. 2. Right-sided nephrolithiasis. 3. Bilateral renal cysts. 4. Slight increased cortical echogenicity bilaterally. This is suggestive of medical renal disease. Electronically signed by: Virgil Schultz M.D. 04/18/2017 10:06 PM Dictated Date/Time: 04/18/2017 10:04 PM
[2017-04-18] MEDS: SIMVASTATIN 40 MG TAB PO SCH (22:15)
[2017-04-19] MEDS: SODIUM CHLORIDE 0.9% 1000ML 1,000 ML IV SCH (05:19)
[2017-04-19 07:56] LABS: HEMATOCRIT 37.5 % (42-52); HEMOGLOBIN 12.4 g/dL (14.0-18.0); MEAN CELL VOLUME 95.2 fL (80-100); MEAN CORPUSCULAR HEMOGLOBIN 31.5 pg (25-34); MEAN CORPUSCULAR HGB CONC 33.1 g/dl (32-36); NUCLEATED RED BLOOD CELL ABS 0.02 K/uL (0-0); RED CELL DISTRIBUTION WIDTH CV 17.2 % (11.5-14.5); RED CELL DISTRIBUTION WIDTH SD 58.4 fL (36.4-46.3); WHITE BLOOD COUNT 7.62 K/uL (4.8-10.8)
[2017-04-19] MEDS: PANTOprazole SOD 40 MG TAB PO SCH (08:00)
[2017-04-19] MEDS: CLINDAMYCIN HCL 150 MG CAP PO SCH ×4 (08:00→20:00)
[2017-04-19] MEDS: METOPROLOL SUCC 50MG EXT REL TAB PO SCH (08:00)
[2017-04-19] MEDS: CYANOCOBALAMIN 500 MCG TAB (VIT B-12) PO SCH (08:00)
[2017-04-19] MEDS: VENLAFAXINE HCL XR 75 MG CAPXR PO SCH (08:00)
[2017-04-19 08:10] LABS: MEAN PLATELET VOLUME 11.3 fL (7.4-10.4); PLATELET COUNT 54 K/uL (130-400)
[2017-04-19 08:26] LABS: CALCIUM 9.1 mg/dl (8.5-10.1); CREATININE 2.72 mg/dl (0.60-1.40); POTASSIUM 4.2 mmol/L (3.5-5.1)
[2017-04-19] MEDS: SODIUM CHLORIDE 0.45% 1000ML 1,000 ML IV SCH ×2 (10:41→21:35)
[2017-04-19] MEDS: LACTOBACILLUS ACIDOPHILUS (FLORANEX) TAB PO SCH (12:12)
--- NOTE | 2017-04-19 12:16 | Hospitalist Progress Note ---
Hospitalist Progress Note Date of Service Apr 19, 2017. (Aurora Gomez ., ISAI-C) Subjective Pt evaluation today including: conversation w/ patient, physical exam, chart review, lab review, review of studies, review of inpatient medication list Patient more oriented today during my visit but still not offering much in terms of reliable ROS. Denies all ROS when asked. Per nursing, refused breakfast and morning medications but cannot offer explanation as to why. He states to me that he is not hungry and does not want lunch now either. Additional Comments: Unable to obtain reliable ROS. (Aurora Gomez ., PA-C) Objective Vital Signs Date Time Temp Pulse Resp B/P (MAP) Pulse Ox O2 Delivery O2 Flow Rate FiO2 04/19/17 08:00 Room Air 04/19/17 00:30 Room Air 04/18/17 23:22 36.4 98 20 133/90 (104) 90 Room Air 04/18/17 18:44 36.4 103 18 140/63 (88) 98 04/18/17 16:00 98 Room Air (Aurora Gomez, ISAI-C) Physical Exam Notes: General appearance: +Appears chronically ill. Well-developed, no apparent distress Head: Normocephalic, atraumatic Eyes: Normal inspection, PERRL, EOMI ENT: Normal ENT inspection, hearing grossly normal, pharynx normal Neck: Supple, no JVD, trachea midline Respiratory/Chest: Lungs clear to auscultation, normal breath sounds, no respiratory distress Cardiovascular: +Irregularly irregular. No gallop, no murmur Abdomen/GI: Normal bowel sounds, non-tender, soft Extremities/Musculoskeletal: Fingers TTP when trying to assess cap refill. Fingers red-aminah today, not blue. Warm to the touch. Weak but palpable pulses distally. No calf tenderness, no pedal edema Neurological/Psych: +More alert today, disoriented to time (could not tell me month or year but said correct president). Alert, normal mood/affect, oriented x 2. Skin: +Laceration forehead closed w/sutures. Skin tear bridge of nose. Scattered upper extremity ecchymoses. Normal color, warm/dry, no rash (Aurora Gomez, ISAI-C) Laboratory Results Last 24 Hours Test 04/19/17 07:36 White Blood Count 7.62 K/uL Red Blood Count 3.94 M/uL Hemoglobin 12.4 g/dL Hematocrit 37.5 % Mean Corpuscular Volume 95.2 fL Mean Corpuscular Hemoglobin 31.5 pg Mean Corpuscular Hemoglobin Concent 33.1 g/dl RDW Standard Deviation 58.4 fL RDW Coefficient of Variation 17.2 % Platelet Count 54 K/uL Mean Platelet Volume 11.3 fL Nucleated RBC Absolute Count (auto) 0.02 K/uL Nucleated Red Blood Cells % 0.3 % Sodium Level 147 mmol/L Potassium Level 4.2 mmol/L Chloride Level 116 mmol/L Carbon Dioxide Level 22 mmol/L Anion Gap 9.0 mmol/L Blood Urea Nitrogen 63 mg/dl Creatinine 2.72 mg/dl Est Creatinine Clear Calc Drug Dose 17.1 ml/min Estimated GFR () 24.0 Estimated GFR (Non- 20.7 BUN/Creatinine Ratio 23.3 Random Glucose 72 mg/dl Calcium Level 9.1 mg/dl (Aurora Gomez, PA-C) Diagnostic Results Reviewed the following studies and agree with interpretation as follows: CT SOFT TISSUE NECK WITHOUT CT DOSE: 680.95 mGy.cm CLINICAL HISTORY: Dysphagia. Change in voice. TECHNIQUE: Unenhanced images were obtained in the transverse plane. A dose lowering technique was utilized adhering to the principles of ALARA. COMPARISON STUDY: None. FINDINGS: The visualized portions of the brain reveal a probable old right occipital infarct and right temporal lobe infarct. The visualized portions lung apices reveal no suspicious masses. There are postsurgical changes of the right. There is a stable low-density 26 mm left lobe thyroid nodule. No salivary gland masses are visualized given the limitations of a noncontrast study. No mucosal space masses are visualized given the limitations of a noncontrast study. There is no pathologic adenopathy. IMPRESSION: 1. Examination limited due to the lack of intravenous contrast 2. Stable 26 mm left lobe thyroid nodule 3. No mucosal space masses identified. No evidence of pathologic adenopathy. 4. Suspected old right temporal and occipital lobe infarcts (CHEST) THORAX WITHOUT CT DOSE: HISTORY: Dysphagia. Voice change. assess for malignancy TECHNIQUE: Multiaxial CT images of the chest were performed without contrast. A dose lowering technique was utilized adhering to the principles of ALARA. COMPARISON: Chest CT 06/08/2014. FINDINGS: No pneumothorax. The central airways are patent. A 2 mm punctate density within the left lower lobe on image 209. This favors a calcified granuloma. Suture material within the right lung apex is again noted. Linear scarlike densities within the right lung base remain unchanged. There is a regular focal density base of left lower lobe which is also stable. This favors round atelectasis given the long-term stability and chronic trace left pleural effusion. Small right pleural effusion is nonspecific change. Small left pleural fusion has improved. Pleural hyperdensity on the right is consistent with prior pleurodesis. This remains unchanged. No suspicious lytic or blastic osseous lesions. No change in the 2.3 cm left thyroid nodule. The heart is normal in size. 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 Normal caliber thoracic aorta. Cholecystectomy. Visualized unenhanced liver and adrenal glands are unremarkable. Bilateral perinephric edema which is likely chronic. Partially visualized 4.3 cm cyst within the right kidney. Calcified granuloma within the spleen. Evaluation for mediastinal abnormality is suboptimal due to the lack of intravenous contrast. However, no mediastinal or hilar lymphadenopathy. No additional masses identified. IMPRESSION: 1. No CT evidence for malignancy within the chest. 2. Chronic changes as described above including small bilateral pleural effusions. The left pleural effusion has improved in the interval. 3. Stable 2.3 cm left thyroid nodule. RENAL ULTRASOUND HISTORY: acute renal failure COMPARISON: Abdomen and pelvis CT 12/24/2015. FINDINGS: Right kidney: 8.6 cm. No hydronephrosis. Scattered areas of cortical scarring and increased cortical echogenicity. A 4 mm stone within the right kidney. Multiple right renal cysts with the largest measuring 4.3 cm. Left kidney: 8.7 cm. No hydronephrosis. Scattered areas of cortical scarring and increased cortical echogenicity. A 2.4 cm cyst. Bladder: No bladder wall thickening. IMPRESSION: 1. No hydronephrosis. 2. Right-sided nephrolithiasis. 3. Bilateral renal cysts. 4. Slight increased cortical echogenicity bilaterally. This is suggestive of medical renal disease. Interpretation Summary * Name: BROCK BLANKENSHIP Study Date: 04/18/2017 02:45 PM * Patient Location: [facility] [place]S\E405\S\1 * : 1935 (M/d/yyyy) Gender: Male Height: 67 in * Age: 81 yrs Ethnicity: [place] Weight: 129 lb * Ordering Physician: Aurora Gomez * Referring Physician: Guillermo Barrett Performed By: Federica Bright RDCS * * Reason For Study: ASSESS FOR THROMBUS, H/O AFIB * BSA: 1.7 m2 * -- Conclusions -- * The left ventricular cavity is small. * There is mild concentric left ventricular hypertrophy. * The left ventricle is hyperdynamic. * The left atrium is moderately dilated. * The right atrium is moderate to severely dilated. * There is a bioprosthetic aortic valve. * There is mild mitral regurgitation. * There is moderate tricuspid regurgitation. * The inferior vena cava is mildly dilated. * Compared to an echocardiogram from 01/20/2017, the pulmonary pressures are slightly lower otherwise no significant difference. Procedure Details * Left Ventricle The left ventricular cavity is small. There is mild concentric left ventricular hypertrophy. Ejection Fraction = >70 %. The left ventricle is hyperdynamic. The left ventricular wall motion is normal. * Right Ventricle The right ventricle is normal in size and function. * Atria The left atrium is moderately dilated. The right atrium is moderate to severely dilated. * Mitral Valve There is moderate mitral annular calcification. There is mild mitral regurgitation. * Tricuspid Valve The tricuspid valve is not well visualized, but is grossly normal. There is moderate tricuspid regurgitation. * Aortic Valve Trace aortic regurgitation. There is a bioprosthetic aortic valve. The gradient is normal for this prosthetic aortic valve. * Pericardium/Pleural There is no pericardial effusion. * Great Vessels The inferior vena cava is mildly dilated. (Aurora Gomez ., PA-C) Assessment and Plan 81 y/o male with a history of severe aortic stenosis s/p TAPVR in December 2016 , atrial fibrillation, ID s/p PCI of RCA, PE, RA on chronic immunosuppression, chronic right pleural effusion, COPD, GERD, and peripheral artery disease who presents following a fall. Ambulatory dysfunction, fall -Admit to med/surg -PT/OT pending -Head CT no acute disease -Plavix held Decreased oral intake, dysphagia--smoking h/o. Pt very concerning for malignancy -Speech therapy evaluate and treat: reported throat pain, placed on pureed diet w/aspiration precautions -Soft tissue neck and chest CT negative for malignancy -Could be contributing to renal failure Acute renal failure--improving -Previous Cr baseline 1.4-1.8 -Creatinine 2.72 on 04/19, down from 3.01 -Change NSS to 1/2NSS due to hypernatremia, continue at 100 cc/hr -Renal ultrasound w/right nephrolithiasis and bilateral renal cysts. Findings consistent w/medical renal disease. No hydronephrosis Thrombocytopenia, unclear etiology -PLT down to 54 on 04/19, from 72. Had been 229 as recently as 04/09/17 -Hematology consulted, appreciate recs PAD, cyanosis--cyanosis improved, fingers now warm -Echo negative for thrombus. LVEF over 70%, no wall motion abnormalities. Mild LVH Atrial fibrillation--rate controlled -Continue Toprol 100 mg PO qd -No anticoagulation per outpatient records, unclear why. Plavix held RA -Continue methotrexate 12.5 mg PO weekly, prednisone 1 mg PO BID HLD -Continue Zocor 40 mg PO qd Depression -Continue Effexor 75 mg PO qd Code Status -Level I, FULL RESUSCITATION STATUS Dispo -From [facility] -PT/OT pending (Aurora Gomez ., IVA) Reviewed: Pt Seen/Exam by Me (Jennifer Trotter MD) History Physician Director Card supervision Note: I interviewed and examined the patient. Discussed with ISAI Gomez and agree with findings and plan as documented in the note. Any exceptions or clarifications are listed here: Patient sleeping when I saw him and was very annoyed that I woke him up. Heart rate has been high but he is absolutely refusing all medications including his metoprolol today. Discussed trying to get him to take his metoprolol now with the nurse. Vitals reviewed-tachycardic Gen: Sleeping but opens eyes and answers some questions with terse responses, NAD HEENT: anicteric sclerae, EOMI CV: Irregularly irregular, mildly tachycardic Pulm: CTAB no wcr Abd: +BS soft NT ND no masses or hernias, scaphoid appearance Ext: no edema Patient is an 81-year-old male with a history of permanent atrial fibrillation not on anticoagulation due to history of bleeding and patient refusal, embolic CVA, aortic stenosis now status post TAVR, ID s/p PCI of RCA, PE, RA on chronic immunosuppression, chronic right pleural effusion, COPD, GERD, CKD stage III, major depressive disorder, and PAD who presents following a fall. Found to have acute renal insufficiency on CKD stage III, with failure to thrive. Failure to thrive could be secondary to worsening major depressive disorder, recent stroke, poor p.o. intake. severe protein calorie malnutrition-continue to encourage p.o. intake, if refuses, need to consider palliative care consultation and discussion with family about goals of care in the future acute renal failure in setting of CKD stage 3-improved with hydration, switch to half-normal saline for hypernatremia Thrombocytopenia-I specifically spoke with the laboratory geneticist this morning who told me there were no platelet clumps, however now the lab result is saying that there is platelet clumps-repeat CBC and coag studies and fibrinogen with fibrin split products as per hematology recommendations, check CBC in blue top tomorrow uncontrolled a. fib-rate's uncontrolled now as he refused his metoprolol this morning-RN to try to get him to take his metoprolol tonight, if he continues to refuse, could transfer to telemetry and give IV Lopressor cyanotic finger tips-resolved, could be Raynaud's phenomenon given his history of autoimmune disorders, echo without vegetation or thrombus COPD encephalopathy - metabolic dysphagia with voice changes-CT of the neck with thyroid nodule stable, TSH normal CT of the abdomen and pelvis with chronic perinephric stranding likely secondary to chronic kidney disease, no obstruction PT, OT and will need SNF placement We will need to have discussion with family members for goals of care Documented By: Jennifer Trotter (Jennifer Trotter MD)
--- NOTE | 2017-04-19 15:51 | DIAGNOSTIC IMAGING REPORT ---
ABDOMEN AND PELVIS CT WITHOUT CONTRAST CT DOSE: 272.49 mGy.cm HISTORY: unintentional weight loss, assess for malignancy TECHNIQUE: Multiaxial CT images of the abdomen and pelvis were performed without contrast. A dose lowering technique was utilized adhering to the principles of ALARA. COMPARISON STUDY: Abdomen and pelvis CT 12/24/2015. FINDINGS: Suboptimal evaluation for malignancy due to the lack of intravenous contrast. Small bilateral pleural fusions, bibasilar densities, and a right-sided pleurodesis are again noted. 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 No pneumoperitoneum. No pneumatosis. No suspicious lytic or blastic osseous lesions. No definite hepatic or splenic masses. The unenhanced pancreas and adrenal glands appear unremarkable. 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 No retroperitoneal lymphadenopathy. 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 Moderate bilateral perinephric edema, unchanged. Bilateral nephrolithiasis. No ureteral stones. No hydronephrosis. Punctate stone within the bladder. Bilateral renal hypodense lesions. These are similar to the prior study and therefore likely represent cysts. The dominant lesion within the right kidney measures 4 cm. Suboptimal evaluation for bowel pathology due to the lack of intravenous and oral contrast. However, there is no definite bowel wall thickening or obstruction. Normal appendix. Cholecystectomy. IMPRESSION: 1. Study is limited from a technical standpoint due to the lack of intravenous and oral contrast. No definite evidence for malignancy within the abdomen or pelvis. 2. No change in the moderate perinephric edema. This suggests chronic renal insufficiency. 3. No bowel wall thickening or obstruction. 4. Small bilateral pleural effusions persist. 5. Bilateral nephrolithiasis. 6. 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 7. Additional findings as described above. Electronically signed by: Virgil Schultz M.D. 04/19/2017 3:49 PM Dictated Date/Time: 04/19/2017 3:37 PM
[2017-04-19 16:02] VITALS: BP 129/86; PULSE 112; TEMP 36.4; O2SAT 100
--- NOTE | 2017-04-19 17:29 | HEMATOLOGY CONSULTATION ---
DATE OF CONSULTATION: 04/19/2017 REASON FOR CONSULTATION: Thrombocytopenia. HISTORY OF PRESENT ILLNESS: Mr. Vega is a very pleasant 81-year-old gentleman who currently lives in an assisted facility with a significant past medical history was admitted to [facility] on 04/18/2017 status post fall. Mr. Vega suffered minor injuries, specifically a laceration of forehead. He admitted when he was on the toilet, on the evening of admission tried to stand up and fell forward striking his head directly on the ground. He required several stitches for the laceration. CT scan of the head on admission showed no evidence for subdural hematoma or other intracranial abnormalities. Laboratories on admission included peripheral blood counts, which revealed normal WBCs, hemoglobin and a decreased platelet count of 72,000. Review of previous platelet counts registers measurement of 229,000 on 04/09/2017. The result from 04/19/2017 clearly notes clumping. Interestingly, however, in late January of 2017, Mr. Vega' platelet count measured 86 and 89,000, respectively. Overall, his pattern of platelets seems to be somewhat irregular and certainly the question of a pseudothrombocytopenia is in question. PAST MEDICAL HISTORY: Significant for atrial fibrillation, coronary artery disease, pulmonary embolism, rheumatoid arthritis, chronic right pleural effusion, COPD, GERD, peripheral vascular disease. Also, severe aortic stenosis. MEDICATIONS: Prior to admission include clindamycin 450 mg p.o. q.i.d., clopidogrel 75 mg p.o. daily, vitamin B12 1000 mcg p.o. q.a.m., folic acid 1 mg p.o. 6 times per week, methotrexate 12.5 mg p.o. q. weekly, metoprolol 100 mg p.o. daily, omeprazole 20 mg p.o. q.a.m., prednisone 1 mg p.o. b.i.d., and simvastatin 40 mg p.o. daily. ALLERGIES: OXYCODONE AND FUROSEMIDE. SOCIAL HISTORY: The patient resides in a personal alf. Currently, nonsmoker and nondrinker. FAMILY HISTORY: Noncontributory. REVIEW OF SYSTEMS: GENERAL: As per HPI, status post fall suffering forehead laceration. Denies fevers, chills or sweats. He appears to be somewhat cachectic. SKIN: Senile purpura seen predominantly in the dorsum of his forearms, predominantly. HEENT: Negative for headaches, lightheadedness or dizziness. No acute visual or hearing deficits. No sinus symptoms, sore throat or dysphagia. LYMPH: No history of lymphoproliferative disorder. CARDIAC: Positive cardiac history as listed above. No current angina or palpitations. PULMONARY: He is not short of breath, dyspneic or orthopneic. GASTROINTESTINAL: He denies any abdominal pain, nausea, vomiting, diarrhea or constipation. GENITOURINARY: He has no history of genitourinary disease, specifically prostate disease. No hematuria or dysuria. ENDOCRINE: Negative for diabetes or thyroid disease. NEUROLOGIC: Negative for seizure, stroke, or migraine headache. HEMATOLOGIC: As per HPI. PHYSICAL EXAMINATION: GENERAL: A very pleasant 81-year-old gentleman in no acute distress. VITAL SIGNS: Temperature 36.4, pulse 98, respirations 20, blood pressure 133/90. SKIN: Again, senile purpura noted, otherwise no rash or lesions. HEENT: Forehead laceration covered with a sterile bandage, otherwise atraumatic, normocephalic. EYES: PERRLA, EOMI. Sclerae nonicteric. Nares are patent without rhinorrhea or discharge. Throat clear. Tongue midline. Mucous membranes are moist. NECK: Supple without JVD or thyromegaly. LYMPH: No cervical, supraclavicular or axillary palpable nodes. HEART: Regular rate and rhythm. No clicks, rubs, murmurs or gallops. LUNGS: Clear to auscultation bilaterally. ABDOMEN: Soft, nontender, nondistended, without palpable hepatosplenomegaly. EXTREMITIES: No calf tenderness or swelling. No clubbing, cyanosis or edema. NEUROLOGICALLY: Grossly intact. LABORATORY DATA: WBC counts 7620, hemoglobin 12.4, platelet count 54,000. Chemistry - sodium 147, potassium 4.2, chloride 116, carbon dioxide 22, creatinine 2.72 and BUN 63. IMPRESSION: 1. Thrombocytopenia, etiology unclear, rule out pseudothrombocytopenia. 2. Status post fall, suffering forehead laceration. 3. Failure to thrive. 4. Atrial fibrillation. 5. Acute on chronic kidney injury. PLAN: I had the pleasure of seeing Mr. Vega at bedside at your kind request today. Reviewed his previous peripheral blood counts, specifically platelet count which has been fluctuant over the past couple of months. Couple of things to consider - would start by obtaining specimen and blue top to see if clumping is playing a part. Secondly, Plavix on rare occasions can cause TTP type phenomenon and therefore peripheral smear should be examined by the pathology department. The patient has no evidence of a subdural hematoma; however, low grade DIC should also be ruled out, by obtaining coags, PT, PTT, fibrinogen and fibrin split products. If up Plavix is not essential at this juncture, may consider temporarily holding to see if platelet count improves, once pseudothrombocytopenia is ruled out. Certainly, ITP should be in the differential diagnosis and again would not initiate corticosteroids or IVIG, unless his platelet count falls below 30,000 or bleeding ensues. For now, would obtain all CBC specimens in blue top in lieu of a purple top, to avoid clumping phenomenon. Will continue to follow Mr. Vega throughout his hospital stay. Hopefully, found this consultation helpful and would be happy to discuss its details at any time by phone or in person. Thank you very much for allowing me to participate in his care. If you have any questions or concerns, feel free to contact me at any time. MALOU
[2017-04-19] MEDS: SIMVASTATIN 40 MG TAB PO SCH (21:00)
[2017-04-19 23:33] VITALS: BP 106/76; PULSE 112; TEMP 36.6; O2SAT 100
[2017-04-20] MEDS: SODIUM CHLORIDE 0.45% 1000ML 1,000 ML IV SCH ×4 (04:52→22:09)
[2017-04-20 07:24] VITALS: BP 146/97; PULSE 119; TEMP 36.7; O2SAT 100
[2017-04-20 08:18] LABS: INR 1.2 (0.9-1.1); PTT PATIENT 38.3 SECONDS (21.0-31.0)
[2017-04-20 08:25] LABS: CALCIUM 8.5 mg/dl (8.5-10.1); CREATININE 2.43 mg/dl (0.60-1.40); POTASSIUM 4.2 mmol/L (3.5-5.1)
[2017-04-20] MEDS: PANTOprazole SOD 40 MG TAB PO SCH (08:28)
[2017-04-20] MEDS: VENLAFAXINE HCL XR 75 MG CAPXR PO SCH (08:28)
[2017-04-20] MEDS: CYANOCOBALAMIN 500 MCG TAB (VIT B-12) PO SCH (08:28)
[2017-04-20] MEDS: CLINDAMYCIN HCL 150 MG CAP PO SCH ×4 (08:28→21:09)
[2017-04-20 08:39] LABS: HEMATOCRIT 35.3 % (42-52); HEMOGLOBIN 11.3 g/dL (14.0-18.0); MEAN CELL VOLUME 96.4 fL (80-100); MEAN CORPUSCULAR HEMOGLOBIN 30.9 pg (25-34); MEAN PLATELET VOLUME 12.2 fL (7.4-10.4); PLATELET COUNT 56 K/uL (130-400); RED CELL DISTRIBUTION WIDTH CV 17.1 % (11.5-14.5); RED CELL DISTRIBUTION WIDTH SD 59.1 fL (36.4-46.3)
--- NOTE | 2017-04-20 08:53 | HEME/ONC PROGRESS NOTE ---
DATE: 04/20/2017 DIAGNOSES: 1. Thrombocytopenia. 2. Status post fall, forehead laceration. 3. Failure to thrive. 4. Atrial fibrillation. 5. Acute on chronic renal injury. SUBJECTIVE: I visited Mr. Vega at bedside again. A very pleasant 81-year-old gentleman who suffered a fall at his assisted living facility and was admitted to [facility] on 03/31/2017 with a forehead laceration. I have been asked to see him because of low platelets. Examined multiple lab results spanning back into 01/2017 and noted some variability. There is also suggestion that the patient may be a clumper as commented on one particular specimen. Recommended ruling out pseudothrombocytopenia. The other consideration is TTP phenomenon associated with Plavix as well as low grade DIC. Unfortunately, peripheral blood counts and coagulation parameters are pending at the time of dictation. Clinically, Mr. Vega looks well and offers no complaints. PHYSICAL EXAMINATION: GENERAL: He is in no acute distress. CURRENT VITAL SIGNS: 36.7, pulse 119, respirations 20, blood pressure 146/97. SKIN: Again, scattered senile purpura involving his upper extremities, otherwise no petechiae noted. HEENT: Oral mucosa without erythema or ulceration. NECK: Supple. HEART: Regular rate and rhythm. LUNGS: Clear to auscultation. ABDOMEN: Soft, nontender, nondistended. EXTREMITIES: No clubbing, cyanosis or edema. NEUROLOGIC: Grossly intact. LABORATORY DATA: Again, peripheral blood count is pending. Coags reveal slightly elevated PT and PTT. Fibrinogen and fibrin split products are pending. Chemistries are also pending at the time of this dictation. IMPRESSION: 1. Thrombocytopenia, etiology unclear, rule out pseudothrombocytopenia. 2. Status post fall resulting in a forehead laceration. 3. Failure to thrive. 4. Atrial fibrillation. 5. Acute on chronic renal injury. PLAN: We will await today's results. His coags are slightly skewed but we will await fibrinogen and fibrin splits before determining if Mr. Vega suffers from low grade DIC. I am also very interested to examine the blue top result to see if his platelet count is actually normal. Again, would like pathology to examine his smear to rule out schistocytosis associated with TTP and Plavix. Again, ITP is a diagnosis of exclusion and does not need to be treated unless the platelet count falls below 30,000 or bleeding ensues. We will continue to follow Mr. Vega throughout his hospital stay. Thank you again for allowing me to participate in his care.
[2017-04-20] MEDS: METOPROLOL SUCC 50MG EXT REL TAB PO SCH (08:55)
[2017-04-20] MEDS: LACTOBACILLUS ACIDOPHILUS (FLORANEX) TAB PO SCH (12:11)
--- NOTE | 2017-04-20 13:52 | DIAGNOSTIC IMAGING REPORT ---
HEAD WITHOUT CONTRAST (CT) CT DOSE: 537.48 mGy.cm HISTORY: Trauma recent fall, with DIC, r/o SDH TECHNIQUE: Multiaxial CT images of the head were performed without the use of intravenous contrast. A dose lowering technique was utilized adhering to the principles of ALARA. Comparison: 04/20/2017 Findings: The paranasal sinuses and mastoid air cells are clear. The calvarium and skull base are intact. The ventricles and sulci are within normal limits. There is no mass, hematoma, midline shift, or acute infarct. Scattered areas of prior vascular insults and/or encephalomalacia are unchanged from the prior exam and are considered nonacute. Impression: No acute intracranial abnormality. Chronic and age-related change. The above report was generated using voice recognition software. It may contain grammatical, syntax or spelling errors. Electronically signed by: Duong Durand M.D. 04/20/2017 1:51 PM Dictated Date/Time: 04/20/2017 1:47 PM
--- NOTE | 2017-04-20 14:47 | DIAGNOSTIC IMAGING REPORT ---
LUNG IMAGING VQ CLINICAL HISTORY: Chest pain. Dyspnea. COMPARISON: None TECHNIQUE: For the ventilation portion of this exam, 32.7 mCi of DTPA was inhaled at 1:45 PM. Immediately following inhalation, imaging of the chest was carried out in the anterior, posterior, left lateral, right lateral, LPO, RPO, [place] and [place] projections. For the perfusion portion of exam, 5.5 mCi of technetium 99m MAA was injected IV at 2:25 PM. Immediately following injection, imaging of the chest was carried out in the same projections. FINDINGS: Subtle inhomogeneity of activity on all major components of ventilation as well as perfusion. The perfusion component of the study shows no significant segmental or subsegmental defect. The aerosol component of the study shows minimal central air trapping. There is no significant ventilation/perfusion mismatch. IMPRESSION: 1. Low probability of pulmonary embolus. 2. Minimal central air trapping. The above report was generated using voice recognition software. It may contain grammatical, syntax or spelling errors. Electronically signed by: Duong Durand M.D. 04/20/2017 2:46 PM Dictated Date/Time: 04/20/2017 2:44 PM
--- NOTE | 2017-04-20 15:19 | DIAGNOSTIC IMAGING REPORT ---
VENOUS DOPPLER LWR EXT BILA CLINICAL HISTORY: 81 years-old Male presenting with DIC, assess for DVT. TECHNIQUE: Real-time grayscale and color and spectral Doppler ultrasound imaging of the veins of the bilateral lower extremities was performed. Compression and augmentation were also utilized. COMPARISON: None. FINDINGS: Right: Common femoral vein: Patent. Greater saphenous vein: Patent. Deep femoral vein: Patent. Femoral vein: Patent. Popliteal vein: Patent. Calf veins: Patent. Left: Common femoral vein: Patent. Greater saphenous vein: Patent. Deep femoral vein: Patent. Femoral vein: Patent. Popliteal vein: Patent. Calf veins: Patent. Other: None. IMPRESSION: No evidence of deep venous thrombosis. Electronically signed by: Pete Askew M.D. 04/20/2017 3:18 PM Dictated Date/Time: 04/20/2017 3:17 PM
--- NOTE | 2017-04-20 17:00 | Hospitalist Progress Note ---
Hospitalist Progress Note Date of Service Apr 20, 2017. (Aurora Gomez ., PA-C) Subjective Pt evaluation today including: conversation w/ patient, conversation w/ family (spoke with son Nawaf), physical exam, chart review, lab review, review of inpatient medication list Pain: None PO Intake: Poor appetite Voiding: no voiding problems The patient is calm and cooperative but does not offer very reliable ROS. He denies any complaints. He is only eating a few bites of food per nursing. The patient denies fevers, chills, sweats, chest pain, palpitations, claudication, cough, wheezing, shortness of breath, nausea, vomiting, abdominal pain, dysuria , hematuria, urinary retention, paralysis, weakness, numbness and tingling. Talked w/patient's son Nawaf. He states [facility] was already looking into nursing homes for him and possible hospice. He is realistic and agreeable to palliative care consult. Additional Comments: See HPI for pertinent positives and negatives. All other systems reviewed and negative. (Aurora Gomez ., PA-C) Objective Vital Signs Date Time Temp Pulse Resp B/P (MAP) Pulse Ox O2 Delivery O2 Flow Rate FiO2 04/20/17 09:55 Room Air 04/20/17 07:24 36.7 119 20 146/97 (113) 100 04/20/17 00:00 Room Air 04/19/17 23:33 36.6 112 18 106/76 (86) 100 Room Air 04/19/17 20:00 Room Air (Aurora Gomez ., PA-C) Physical Exam Notes: General appearance: +Appears chronically ill. Well-developed, no apparent distress Head: Normocephalic, atraumatic Eyes: Normal inspection, PERRL, EOMI ENT: Normal ENT inspection, hearing grossly normal, pharynx normal Neck: Supple, no JVD, trachea midline Respiratory/Chest: Lungs clear to auscultation, normal breath sounds, no respiratory distress Cardiovascular: +Irregularly irregular. No gallop, no murmur Abdomen/GI: Normal bowel sounds, non-tender, soft Extremities/Musculoskeletal: Fingers TTP when trying to assess cap refill. Fingers warm to the touch but darker in color. Weak but palpable pulses distally. No calf tenderness, no pedal edema Neurological/Psych: +Alert, disoriented to time (could not tell me month or year but said correct president) and place (states we are in [place]). Alert, normal mood/affect, oriented x 1 Skin: +Laceration forehead closed w/sutures. Skin tear bridge of nose. Scattered upper extremity ecchymoses. Normal color, warm/dry, no rash (Aurora Gomez ., PA-C) Laboratory Results Last 24 Hours Test 04/20/17 07:35 04/20/17 08:40 White Blood Count 8.00 K/uL Red Blood Count 3.66 M/uL Hemoglobin 11.3 g/dL Hematocrit 35.3 % Mean Corpuscular Volume 96.4 fL Mean Corpuscular Hemoglobin 30.9 pg Mean Corpuscular Hemoglobin Concent 32.0 g/dl RDW Standard Deviation 59.1 fL RDW Coefficient of Variation 17.1 % Platelet Count 56 K/uL Mean Platelet Volume 12.2 fL Platelet Estimate DECREASED Peripheral Blood Smear Path Consult Prothrombin Time 12.7 SECONDS Prothromb Time International Ratio 1.2 Activated Partial Thromboplast Time 38.3 SECONDS Partial Thromboplastin Ratio 1.5 Fibrinogen 434 mg/dl Fibrin Degradation Products >40 mcg/ml Sodium Level 144 mmol/L Potassium Level 4.2 mmol/L Chloride Level 115 mmol/L Carbon Dioxide Level 20 mmol/L Anion Gap 10.0 mmol/L Blood Urea Nitrogen 53 mg/dl Creatinine 2.43 mg/dl Est Creatinine Clear Calc Drug Dose 19.1 ml/min Estimated GFR () 27.5 Estimated GFR (Non- 23.7 BUN/Creatinine Ratio 21.9 Random Glucose 63 mg/dl Calcium Level 8.5 mg/dl Platelet Count, Citrate 52 10^3/uL (Aurora Gomez ., PA-C) Diagnostic Results Reviewed the following studies and agree with interpretation as follows: ABDOMEN AND PELVIS CT WITHOUT CONTRAST CT DOSE: 272.49 mGy.cm HISTORY: unintentional weight loss, assess for malignancy TECHNIQUE: Multiaxial CT images of the abdomen and pelvis were performed without contrast. A dose lowering technique was utilized adhering to the principles of ALARA. COMPARISON STUDY: Abdomen and pelvis CT 12/24/2015. FINDINGS: Suboptimal evaluation for malignancy due to the lack of intravenous contrast. Small bilateral pleural fusions, bibasilar densities, and a right-sided pleurodesis are again noted. 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 No pneumoperitoneum. No pneumatosis. No suspicious lytic or blastic osseous lesions. No definite hepatic or splenic masses. The unenhanced pancreas and adrenal glands appear unremarkable. 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 No retroperitoneal lymphadenopathy. 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 Moderate bilateral perinephric edema, unchanged. Bilateral nephrolithiasis. No ureteral stones. No hydronephrosis. Punctate stone within the bladder. Bilateral renal hypodense lesions. These are similar to the prior study and therefore likely represent cysts. The dominant lesion within the right kidney measures 4 cm. Suboptimal evaluation for bowel pathology due to the lack of intravenous and oral contrast. However, there is no definite bowel wall thickening or obstruction. Normal appendix. Cholecystectomy. IMPRESSION: 1. Study is limited from a technical standpoint due to the lack of intravenous and oral contrast. No definite evidence for malignancy within the abdomen or pelvis. 2. No change in the moderate perinephric edema. This suggests chronic renal insufficiency. 3. No bowel wall thickening or obstruction. 4. Small bilateral pleural effusions persist. 5. Bilateral nephrolithiasis. 6. 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 7. Additional findings as described above. HEAD WITHOUT CONTRAST (CT) CT DOSE: 537.48 mGy.cm HISTORY: Trauma recent fall, with DIC, r/o SDH TECHNIQUE: Multiaxial CT images of the head were performed without the use of intravenous contrast. A dose lowering technique was utilized adhering to the principles of ALARA. Comparison: 04/20/2017 Findings: The paranasal sinuses and mastoid air cells are clear. The calvarium and skull base are intact. The ventricles and sulci are within normal limits. There is no mass, hematoma, midline shift, or acute infarct. Scattered areas of prior vascular insults and/or encephalomalacia are unchanged from the prior exam and are considered nonacute. Impression: No acute intracranial abnormality. Chronic and age-related change. VENOUS DOPPLER LWR EXT BILA CLINICAL HISTORY: 81 years-old Male presenting with DIC, assess for DVT. TECHNIQUE: Real-time grayscale and color and spectral Doppler ultrasound imaging of the veins of the bilateral lower extremities was performed. Compression and augmentation were also utilized. COMPARISON: None. FINDINGS: Right: Common femoral vein: Patent. Greater saphenous vein: Patent. Deep femoral vein: Patent. Femoral vein: Patent. Popliteal vein: Patent. Calf veins: Patent. Left: Common femoral vein: Patent. Greater saphenous vein: Patent. Deep femoral vein: Patent. Femoral vein: Patent. Popliteal vein: Patent. Calf veins: Patent. Other: None. IMPRESSION: No evidence of deep venous thrombosis. LUNG IMAGING VQ CLINICAL HISTORY: Chest pain. Dyspnea. COMPARISON: None TECHNIQUE: For the ventilation portion of this exam, 32.7 mCi of DTPA was inhaled at 1:45 PM. Immediately following inhalation, imaging of the chest was carried out in the anterior, posterior, left lateral, right lateral, LPO, RPO, MALAY and MOLINA projections. For the perfusion portion of exam, 5.5 mCi of technetium 99m MAA was injected IV at 2:25 PM. Immediately following injection, imaging of the chest was carried out in the same projections. FINDINGS: Subtle inhomogeneity of activity on all major components of ventilation as well as perfusion. The perfusion component of the study shows no significant segmental or subsegmental defect. The aerosol component of the study shows minimal central air trapping. There is no significant ventilation/perfusion mismatch. IMPRESSION: 1. Low probability of pulmonary embolus. (Aurora Gomez ., PA-C) Assessment and Plan 81 y/o male with a history of severe aortic stenosis s/p TAPVR in December 2016 , atrial fibrillation, [place] s/p PCI of RCA, PE, RA on chronic immunosuppression, chronic right pleural effusion, COPD, GERD, and peripheral artery disease who presents following a fall. Ambulatory dysfunction, fall -Admit to med/surg -PT/OT pending -Head CT no acute disease -Plavix held Decreased oral intake, dysphagia--smoking h/o. Pt very concerning for malignancy -Speech therapy evaluate and treat: reported throat pain, placed on pureed diet w/aspiration precautions -Soft tissue neck and chest CT negative for malignancy -CT abdomen/pelvis negatived for mass/malignancy -Could be contributing to renal failure -Spoke with son. Pt has been declining for several months w/o motivation to get better, not eating. [facility] had been looking at SNFs prior to admission and considering hospice -Palliative care consult Acute renal failure--improving -Previous Cr baseline 1.4-1.8 -Creatinine 2.43 on 04/20, down from 2.72 -IVF increased to 125 cc/hr -Renal ultrasound w/right nephrolithiasis and bilateral renal cysts. Findings consistent w/medical renal disease. No hydronephrosis Thrombocytopenia secondary to DIC -PLT stable at 56 -Repeat head CT negative for SDH -Hematology following -Coag studies elevated consistent w/DIC -Doppler ultrasound negative for DVT, VQ scan low probability of PE, no thrombus on echo -Continue to trend coag studies PAD, cyanosis--cyanosis improved, fingers now warm -Echo negative for thrombus. LVEF over 70%, no wall motion abnormalities. Mild LVH Atrial fibrillation--rate controlled -Continue Toprol 100 mg PO qd -No anticoagulation per outpatient records, unclear why. Plavix held RA -Continue methotrexate 12.5 mg PO weekly, prednisone 1 mg PO BID HLD -Continue Zocor 40 mg PO qd Depression -Continue Effexor 75 mg PO qd Code Status -Level I, FULL RESUSCITATION STATUS Dispo -From [facility] -PT/OT pending (Aurora Gomez, IVA) Reviewed: Pt Seen/Exam by Me (Jennifer Trotter MD) History Physician Public Health Sanitarian supervision Note: I interviewed and examined the patient. Discussed with ISAI Gomez and agree with findings and plan as documented in the note. Any exceptions or clarifications are listed here: Pt did take some meds today, was more agreeable to exam today but did not speak much at all. Terse answers. Vitals reviewed-tachycardic Gen: Sleeping but opens eyes and answers some questions with terse responses, NAD HEENT: anicteric sclerae, EOMI CV: Irregularly irregular, mildly tachycardic but improved Pulm: CTAB no wcr Abd: +BS soft NT ND no masses or hernias, scaphoid appearance Ext: no edema Skin: multiple areas of bruising on arms and forehead/face Patient is an 81-year-old male with a history of permanent atrial fibrillation not on anticoagulation due to history of bleeding and patient refusal, embolic CVA, aortic stenosis now status post TAVR, [place] s/p PCI of RCA, PE, RA on chronic immunosuppression, chronic right pleural effusion, COPD, GERD, CKD stage III, major depressive disorder, and PAD who presents following a fall. Found to have acute renal insufficiency on CKD stage III, with failure to thrive. Failure to thrive could be secondary to worsening major depressive disorder, recent stroke, poor p.o. intake. - severe protein calorie malnutrition-continue to encourage p.o. intake, not taking in much, workup for malignancy unrevealing thus far-pt's family is agreeable to palliative care consultation and discussion with family about goals of care in the future -acute renal failure in setting of CKD stage 3-continues to improve with hydration, switched to half-normal saline for hypernatremia which also improved and increase rate today -DIC/Thrombocytopenia-plts low but stable in Citrate tube at 52k, discussed case with Hematology, FDPs high, fibrinogen high but could be from inflammatory process? PTT elevated-no evidence of clot on imaging and ECHO, could be from extensive bruising from fall vs TTP Plavix reaction--> follow labs and transfuse plts for bleeding and plts<30k -uncontrolled a. fib-rates improved with taking metoprolol today cyanotic finger tips-resolved, could be Raynaud's phenomenon given his history of autoimmune disorders, echo without vegetation or thrombus although was only TTE COPD-stable encephalopathy - metabolic-possibly resolved? difficult to tell what baseline is dysphagia with voice changes-CT of the neck with thyroid nodule stable, TSH normal CT of the abdomen and pelvis with chronic perinephric stranding likely secondary to chronic kidney disease, no obstruction PT, OT and will need SNF placement possibly with Palliative Care vs Hospice Palliative Care consult for tomorrow Documented By: Jennifer Trotter (Jennifer Trotter MD)
[2017-04-20] MEDS: SIMVASTATIN 40 MG TAB PO SCH (21:09)
[2017-04-20 23:33] VITALS: BP 104/68; PULSE 109; TEMP 36.4; O2SAT 96
[2017-04-21 05:47] LABS: HEMATOCRIT 34.2 % (42-52); HEMOGLOBIN 10.9 g/dL (14.0-18.0); MEAN CELL VOLUME 95.5 fL (80-100); MEAN CORPUSCULAR HEMOGLOBIN 30.4 pg (25-34); MEAN CORPUSCULAR HGB CONC 31.9 g/dl (32-36); RED CELL DISTRIBUTION WIDTH CV 17.2 % (11.5-14.5); RED CELL DISTRIBUTION WIDTH SD 58.3 fL (36.4-46.3); WHITE BLOOD COUNT 5.29 K/uL (4.8-10.8)
[2017-04-21 06:03] LABS: MEAN PLATELET VOLUME 11.8 fL (7.4-10.4); PLATELET COUNT 58 K/uL (130-400)
[2017-04-21 06:17] LABS: CALCIUM 8.4 mg/dl (8.5-10.1); CREATININE 2.33 mg/dl (0.60-1.40)
[2017-04-21] MEDS: SODIUM CHLORIDE 0.45% 1000ML 1,000 ML IV SCH ×4 (06:46→23:56)
[2017-04-21 06:52] LABS: INR 1.2 (0.9-1.1); PTT PATIENT 39.2 SECONDS (21.0-31.0)
[2017-04-21 08:05] VITALS: BP 129/87; PULSE 109; TEMP 36.4; O2SAT 99
[2017-04-21] MEDS: PANTOprazole SOD 40 MG TAB PO SCH (08:53)
[2017-04-21] MEDS: CLINDAMYCIN HCL 150 MG CAP PO SCH ×5 (08:53→21:11)
[2017-04-21] MEDS: VENLAFAXINE HCL XR 75 MG CAPXR PO SCH (08:53)
[2017-04-21] MEDS: CYANOCOBALAMIN 500 MCG TAB (VIT B-12) PO SCH (08:54)
[2017-04-21] MEDS: METOPROLOL SUCC 50MG EXT REL TAB PO SCH (08:54)
--- NOTE | 2017-04-21 09:30 | HEME/ONC PROGRESS NOTE ---
DATE: 04/21/2017 DIAGNOSES: 1. Thrombocytopenia, suspect low-grade disseminated intravascular coagulation. 2. Status post fall, forehead laceration. 3. Failure to thrive. 4. Atrial fibrillation. 5. Bqlld-ad-lbbuocr renal injury. SUBJECTIVE: I examined Mr. Vega at bedside today. He is a pleasant 81-year-old gentleman who suffered a fall at his assisted living facility suffering a forehead laceration. DIC panel was mildly abnormal, particularly a slightly elevated PT and PTT with copious fibrin split products. Primary service performed a Doppler as well as a VQ scan essentially ruling out active thrombus. It appears his platelet count has nadired and hopefully will upturn in the coming days. He does not require transfusional support at this time. Continue medical management as ordered. The patient himself offers no complaints and currently enjoying breakfast. PHYSICAL EXAMINATION: GENERAL: He is in no acute distress. VITAL SIGNS: Temperature 36.4, pulse 109, respiratory rate 18, blood pressure 129/87. SKIN: Scattered senile purpura mainly involving upper extremities. HEENT: Oral mucosa without erythema or ulceration. NECK: Supple. HEART: Regular rate and rhythm. LUNGS: Clear to auscultation. ABDOMEN: Soft, nontender, nondistended. EXTREMITIES: No clubbing, cyanosis or edema. NEUROLOGIC: Grossly intact. LABORATORY DATA: WBC count 5290, hemoglobin 10.9, platelet count 58,000. Sodium 139, potassium 4.0, chloride 111, carbon dioxide 19, creatinine 2.33, BUN 46. ASSESSMENT AND PLAN: 1. Thrombocytopenia, suspect low-grade disseminated intravascular coagulation. 2. Status post fall/forehead laceration. 3. Failure to thrive. 4. Atrial fibrillation. 5. [id number]-[id number] renal injury. I was very pleased to see his platelet count has at least reached magno. Hopefully, it will continue to increase towards normal. Primary service has essentially ruled out active thrombus. For now, no further intervention is required. We will continue to observe his peripheral counts daily. Again, thank you for allowing me to participate in the care of this very pleasant gentleman. We will continue to follow him periodically throughout his hospital stay.
[2017-04-21] MEDS: LACTOBACILLUS ACIDOPHILUS (FLORANEX) TAB PO SCH ×2 (13:06→13:32)
[2017-04-21 15:10] VITALS: BP 117/78; PULSE 108; TEMP 37; O2SAT 94
--- NOTE | 2017-04-21 15:10 | Hospitalist Progress Note ---
Hospitalist Progress Note Date of Service Apr 21, 2017. (Aurora Gomez ., JACKSONC) Subjective Pt evaluation today including: conversation w/ patient, physical exam, chart review, lab review, review of inpatient medication list Patient alert and eating upon my arrival but confused, stating he was "working on the car." Unable to obtain reliable/meaningful ROS, he denies any complaints. Additional Comments: Unable to obtain reliable ROS. (Aurora Gomez PA-C) Objective Vital Signs Date Time Temp Pulse Resp B/P (MAP) Pulse Ox O2 Delivery O2 Flow Rate FiO2 04/21/17 11:46 Room Air 04/21/17 08:30 Room Air 04/21/17 08:05 36.4 109 18 129/87 (101) 99 Room Air 04/21/17 00:00 Room Air 04/20/17 23:33 36.4 109 20 104/68 (80) 96 Room Air 04/20/17 16:20 Room Air (Aurora Gomez, ISAI-C) Physical Exam Notes: General appearance: +Appears chronically ill. Well-developed, no apparent distress Head: Normocephalic, atraumatic Eyes: Normal inspection, PERRL, EOMI ENT: Normal ENT inspection, hearing grossly normal, pharynx normal Neck: Supple, no JVD, trachea midline Respiratory/Chest: Lungs clear to auscultation, normal breath sounds, no respiratory distress Cardiovascular: +Irregularly irregular. No gallop, no murmur Abdomen/GI: Normal bowel sounds, non-tender, soft Extremities/Musculoskeletal: Fingers TTP when trying to assess cap refill. Fingers slightly cool to the touch. Weak but palpable pulses distally. No calf tenderness, no pedal edema Neurological/Psych: +Alert, disoriented to time and place. Alert, normal mood/ affect, oriented x 1 Skin: +Laceration forehead closed w/sutures, healing but still bloody. Skin tear bridge of nose. Scattered upper extremity ecchymoses. Normal color, warm/ dry, no rash (Aurora Gomez ., ISAI-C) Laboratory Results Last 24 Hours Test 04/21/17 05:29 White Blood Count 5.29 K/uL Red Blood Count 3.58 M/uL Hemoglobin 10.9 g/dL Hematocrit 34.2 % Mean Corpuscular Volume 95.5 fL Mean Corpuscular Hemoglobin 30.4 pg Mean Corpuscular Hemoglobin Concent 31.9 g/dl RDW Standard Deviation 58.3 fL RDW Coefficient of Variation 17.2 % Platelet Count 58 K/uL Mean Platelet Volume 11.8 fL Prothrombin Time 12.2 SECONDS Prothromb Time International Ratio 1.2 Activated Partial Thromboplast Time 39.2 SECONDS Partial Thromboplastin Ratio 1.5 Fibrinogen 425 mg/dl Fibrin Degradation Products 10-40 mcg/ml Sodium Level 139 mmol/L Potassium Level 4.0 mmol/L Chloride Level 111 mmol/L Carbon Dioxide Level 19 mmol/L Anion Gap 9.0 mmol/L Blood Urea Nitrogen 46 mg/dl Creatinine 2.33 mg/dl Est Creatinine Clear Calc Drug Dose 19.9 ml/min Estimated GFR () 28.9 Estimated GFR (Non- 24.9 BUN/Creatinine Ratio 19.7 Random Glucose 80 mg/dl Calcium Level 8.4 mg/dl (Aurora Gomez, IVA) Assessment and Plan 81 y/o male with a history of severe aortic stenosis s/p TAPVR in December 2016 , atrial fibrillation, [place] s/p PCI of RCA, PE, RA on chronic immunosuppression, chronic right pleural effusion, COPD, GERD, and peripheral artery disease who presents following a fall. Ambulatory dysfunction, fall -Admit to med/surg -PT/OT pending -Head CT no acute disease -Plavix held -Laceration on forehead closed w/sutures, placed 04/18, remove 04/24 Decreased oral intake/weight loss, dysphagia, severe protein calorie malnutrition --smoking h/o. Pt very concerning for malignancy -Speech therapy evaluate and treat: reported throat pain, placed on pureed diet w/aspiration precautions -Soft tissue neck and chest CT negative for malignancy -CT abdomen/pelvis negatived for mass/malignancy -Could be contributing to renal failure -Spoke with son. Pt has been declining for several months w/o motivation to get better, not eating. [facility] had been looking at SNFs prior to admission and considering hospice -Palliative care consult Acute renal failure--improving -Previous Cr baseline 1.4-1.8 -Creatinine 2.33 on 04/21 on 2.43 -IVF increased to 125 cc/hr -Renal ultrasound w/right nephrolithiasis and bilateral renal cysts. Findings consistent w/medical renal disease. No hydronephrosis Thrombocytopenia secondary to DIC--stable -PLT stable at 58 on 04/21 -Repeat head CT negative for SDH -Hematology following: low grade DIC. No further intervention right now -Coag studies stable, continue to trend -Doppler ultrasound negative for DVT, VQ scan low probability of PE, no thrombus on echo PAD, cyanosis--cyanosis improved, fingers now warm -Echo negative for thrombus. LVEF over 70%, no wall motion abnormalities. Mild LVH Atrial fibrillation--rate controlled -Continue Toprol 100 mg PO qd -No anticoagulation due to h/o GI bleed and pt refusing therapy RA -Continue methotrexate 12.5 mg PO weekly, prednisone 1 mg PO BID HLD -Continue Zocor 40 mg PO qd Depression -Continue Effexor 75 mg PO qd Code Status -Level I, FULL RESUSCITATION STATUS Dispo -From [facility], looking for SNF placement, possible hospice -PT/OT recommend rehab; however after discussing w/son, SNF more suitable (Aurora Gomez, IVA) Reviewed: Pt Seen/Exam by Me (Jennifer Trotter MD) History Physician Card Seller supervision Note: I interviewed and examined the patient. Discussed with ISAI Gomez and agree with findings and plan as documented in the note. Any exceptions or clarifications are listed here: Pt wants to know when he's getting out of the hospital. Otherwise no complaints. Eating some food today. Discussed case with Palliative Care Vitals reviewed-tachycardic Gen: awake, alert, NAD, disoriented to place and time HEENT: anicteric sclerae, EOMI CV: Irregularly irregular, mildly tachycardic Pulm: CTAB no wcr Abd: +BS soft NT ND no masses or hernias, scaphoid appearance Ext: no edema Skin: multiple areas of bruising on arms and forehead/face Patient is an 81-year-old male with a history of permanent atrial fibrillation not on anticoagulation due to history of bleeding and patient refusal, embolic CVA, aortic stenosis now status post TAVR, [place] s/p PCI of RCA, PE, RA on chronic immunosuppression, chronic right pleural effusion, COPD, GERD, CKD stage III, major depressive disorder, and PAD who presents following a fall. Found to have acute renal insufficiency on CKD stage III, with failure to thrive. Failure to thrive could be secondary to worsening major depressive disorder, recent stroke, poor p.o. intake. - severe protein calorie malnutrition-continue to encourage p.o. intake, not taking in much, workup for malignancy unrevealing thus far-Palliative care consultation with family and pt--> looking into Hospice and return to [facility] -acute renal failure in setting of CKD stage 3-continues to improve with hydration, continue half-normal saline and decrease rate today to 75 mls/hr -Low level DIC/Thrombocytopenia-plts low but magno 52k, now increased to 58k, discussed case with Hematology, FDPs high, fibrinogen high but could be from inflammatory process? PTT elevated-no evidence of clot on imaging and ECHO, could be from extensive bruising from fall vs TTP Plavix reaction--> follow labs and transfuse plts for bleeding and plts<30k -uncontrolled a. fib-rates improved with taking metoprolol now (previously refused) cyanotic finger tips-resolved, could be Raynaud's phenomenon given his history of autoimmune disorders, echo without vegetation or thrombus although was only TTE COPD-stable encephalopathy - metabolic-possibly resolved? difficult to tell what baseline is Dementia-progressing, vascular vs Alzheimer's dysphagia with voice changes-CT of the neck with thyroid nodule stable, TSH normal CT of the abdomen and pelvis with chronic perinephric stranding likely secondary to chronic kidney disease, no obstruction Palliative Care consult appreciated, CM aware and working on Hospice at [facility] where he currently resides Documented By: Jennifer Trotter (Jennifer Trotter MD)
--- NOTE | 2017-04-21 16:26 | Palliative Care Consultation ---
Consultation Date of Consultation: Apr 21, 2017. Requesting Physician: Dr. Trotter Attending Physician: Dr. Trotter Reason for Consultation: Goals of care History of Present Illness This 81 year old male patient with PMH listed below presented to the hospital from his personal fdc with c/o fall, AMS, decreased PO intake. Patient also found to have low platelet count for which heme/onc is following him for. Patient required several stitches to his forehead, CT scan was negative for anything acute. Patient was last in hospital back in December and January with altered mental status and multiple CVAs. At his [facility], patient has had a drastic decline since January- increased weakness, decreased PO intake, more confusion. Upon arrival to hospital, his creatinine was >3 likely due to dehydration, also has underlying kidney disease. Given patient's pattern of decline and deterioration, goals of care discussion was initiated with patient' s son/POA, Nawaf Vega. Palliative care is consulted. I met with the patient in room 405. He is awake and alert, but very disoriented. He stated it was 1977 and he was at his uncle's house. He could not participate in any meaningful conversation, his speech is essentially unintelligible. I called his son, Nawaf Vega. We discussed goals of care and Nawaf stated he wants his dad to go back to [facility] hospice as his first choice,but is willing to discuss SNF options if needed. See plan below. Past Medical/Surgical History Medical History: Severe aortic stenosis s/p TAVR Afib [place] s/p PCI of RCA PE RA on chronic immunosuppression Chronic right pleural effusion COPD GERD PAD Social History Smoking Status: Former Smoker History of Alcohol Use: No Drug Use: none Marital Status: Housing Status: lives alone, lives with significant other Occupation Status: retired Review of Systems ROS unable to be obtained due to AMS Allergies Coded Allergies: Oxycodone (Verified Allergy, Severe, HIVES FOR 3 WKS, 04/18/17) Furosemide (Verified Adverse Reaction, Intermediate, Confusion, dizziness and nausea-STILL TAKES IT AT HOME, 04/18/17) Medications Current Inpatient Medications Medications (Trade) Dose Ordered Sig/Wilver Route Start Time Stop Time Status Last Admin Dose Admin Acetaminophen (Tylenol Tab) 650 mg Q4H PRN PO 04/18/17 04:30 05/18/17 04:29 Magnesium Hydroxide (Milk Of Magnesia Susp) 30 ml Q6H PRN PO 04/18/17 04:30 05/18/17 04:29 Ondansetron HCl (Zofran Inj) 4 mg Q6H PRN IV 04/18/17 04:30 05/18/17 04:29 Clindamycin HCl (Cleocin Cap) 450 mg QID PO 04/18/17 08:00 04/28/17 08:59 04/21/17 08:53 450 MG Diphenhydramine HCl (Benadryl Cap) 25 mg Q4 PRN PO 04/18/17 04:30 05/18/17 04:29 Folic Acid (Folvite Tab) 1 mg DAILY PO 04/18/17 08:00 05/18/17 08:59 04/21/17 08:53 1 MG Nitroglycerin (Nitrostat Tab) 0.4 mg UD PRN UT 04/18/17 04:30 05/18/17 04:29 Prednisone (PredniSONE TAB) 1 mg BID17 PO 04/18/17 09:00 05/18/17 08:59 04/21/17 08:54 1 MG Simvastatin (Zocor Tab) 40 mg HS PO 04/18/17 21:00 05/18/17 20:59 04/20/17 21:09 40 MG Cyanocobalamin (Vitamin B-12 Tab) 1,000 mcg QAM PO 04/18/17 08:00 05/18/17 08:59 04/21/17 08:54 1,000 MCG Lactobacillus Acidophilus (Floranex Tab) 4 tab DAILY@1200 PO 04/18/17 12:00 05/18/17 11:59 04/20/17 12:11 4 TAB Metoprolol Succinate (Toprol Xl Tab) 100 mg QAM PO 04/18/17 08:00 05/18/17 08:59 04/21/17 08:54 100 MG Pantoprazole Sodium (Protonix Tab) 40 mg QAM PO 04/18/17 08:00 04/22/17 07:59 04/21/17 08:53 40 MG Miscellaneous (Iv Fluids Completed) 1 ea PRN PRN N/A 04/18/17 04:45 04/18/18 04:44 Polyethylene (Miralax Powder Packet) 17 gm DAILY PRN PO 04/18/17 06:30 3/28/18 04:29 Venlafaxine HCl (effeXOR EXTENDED REL CAP) 75 mg DAILY PO 04/19/17 08:00 05/19/17 07:59 04/21/17 08:53 75 MG Sodium Chloride 1,000 ml @ 125 mls/hr Q8H IV 04/19/17 10:00 05/19/17 09:59 04/21/17 06:46 125 MLS/HR Physical Exam Date Time Temp Pulse Resp B/P (MAP) Pulse Ox O2 Delivery O2 Flow Rate FiO2 04/21/17 15:10 37.0 108 16 117/78 (91) 94 04/21/17 11:46 Room Air 04/21/17 08:30 Room Air 04/21/17 08:05 36.4 109 18 129/87 (101) 99 Room Air 04/21/17 00:00 Room Air 04/20/17 23:33 36.4 109 20 104/68 (80) 96 Room Air 04/20/17 16:20 Room Air General Appearance: no apparent distress, + thin, + pertinent finding ( chronically ill appearing) ENT: hearing grossly normal Neck: supple, no JVD Respiratory: no respiratory distress, no accessory muscle use, + pertinent finding (LS difficult to assess, patient not taking deep breaths) Cardiovascular: regular rate, rhythm, no edema, + normal peripheral pulses Abdomen: normal bowel sounds, non tender, soft Neurologic/Psychiatric: alert, normal mood/affect, oriented x 3 Laboratory Results Last 24 Hours Test 04/21/17 05:29 White Blood Count 5.29 K/uL Red Blood Count 3.58 M/uL Hemoglobin 10.9 g/dL Hematocrit 34.2 % Mean Corpuscular Volume 95.5 fL Mean Corpuscular Hemoglobin 30.4 pg Mean Corpuscular Hemoglobin Concent 31.9 g/dl RDW Standard Deviation 58.3 fL RDW Coefficient of Variation 17.2 % Platelet Count 58 K/uL Mean Platelet Volume 11.8 fL Prothrombin Time 12.2 SECONDS Prothromb Time International Ratio 1.2 Activated Partial Thromboplast Time 39.2 SECONDS Partial Thromboplastin Ratio 1.5 Fibrinogen 425 mg/dl Fibrin Degradation Products 10-40 mcg/ml Sodium Level 139 mmol/L Potassium Level 4.0 mmol/L Chloride Level 111 mmol/L Carbon Dioxide Level 19 mmol/L Anion Gap 9.0 mmol/L Blood Urea Nitrogen 46 mg/dl Creatinine 2.33 mg/dl Est Creatinine Clear Calc Drug Dose 19.9 ml/min Estimated GFR () 28.9 Estimated GFR (Non- 24.9 BUN/Creatinine Ratio 19.7 Random Glucose 80 mg/dl Calcium Level 8.4 mg/dl Assessment & Plan Palliative Performance Scale: 20 % Problem list: AMS Dementia Decreased PO intake ASIM on CKD Thrombocytopenia Hx CVA Goals of care Palliative care recs: discussed with patient's son/POA, Nawaf, Dr. Trotter, Dr. Bridges and pillowcase sewer. -Patient has advanced dementia, although patients son said no one has ever told him that. We discussed patient's signs of dementia as well as progression into end-stage dementia such as not eating/drinking, periods of complete disorientation and confusion, cycles of in/out of hospital with kidney injury due to the dehydration. Nawaf verbalized understanding. -We also reviewed patient's living will which states that at end-stage he does not want any life-prolonging measures. His living will also specifically addresses that if he has dementia and is not eating/drinking, even if he is not in a permanent state of unconsciousness, that he would not want artificial feeding by tube. His son Nawaf again agreed and knows this is his father's wish. -Plan is for hospice care. Nawaf's first choice would be for patient to return to [facility], but if they aren't able to take him he is willing to explore other options. I spoke with the pillowcase sewer who has been in contact with Nawaf as well. Working on plan. -If Nawaf is able to come in to hospital, he will call me so we can meet. I will offer to complete a POLST form at that time. Thank you for consulting me on this nice man and his family. I will follow as needed. Total time spent 70 minutes with >50% of time spent with patient and speaking with family counseling and discussing goals of care. Supervising Physician Chart reviewed , Pt seen and examined. Agree with above note , assessment and plan by SENIOR GRADUATE ADVISOR. PE: pt awake, alert, confused HEENT: facial bruising - approx 1 week old Resp: unlabored CV RR, no edema Ext: FROM Neuro: + cognitive deficits Plan to complete POLST when HCS available
[2017-04-21] MEDS: SIMVASTATIN 40 MG TAB PO SCH (21:12)
[2017-04-22 07:01] LABS: HEMATOCRIT 32.1 % (42-52); HEMOGLOBIN 10.5 g/dL (14.0-18.0); MEAN CELL VOLUME 94.4 fL (80-100); MEAN CORPUSCULAR HEMOGLOBIN 30.9 pg (25-34); MEAN CORPUSCULAR HGB CONC 32.7 g/dl (32-36); RED CELL DISTRIBUTION WIDTH CV 17.6 % (11.5-14.5); RED CELL DISTRIBUTION WIDTH SD 58.1 fL (36.4-46.3); WHITE BLOOD COUNT 4.92 K/uL (4.8-10.8)
[2017-04-22 07:09] LABS: INR 1.2 (0.9-1.1); PTT PATIENT 40.6 SECONDS (21.0-31.0)
[2017-04-22 07:29] LABS: CALCIUM 8.1 mg/dl (8.5-10.1); CREATININE 2.02 mg/dl (0.60-1.40); POTASSIUM 3.9 mmol/L (3.5-5.1)
[2017-04-22 07:39] LABS: MEAN PLATELET VOLUME 11.4 fL (7.4-10.4); PLATELET COUNT 68 K/uL (130-400)
[2017-04-22 08:30] VITALS: BP 140/90; PULSE 84; TEMP 36.3; O2SAT 100
[2017-04-22] MEDS: CLINDAMYCIN HCL 150 MG CAP PO SCH ×2 (09:13→13:31)
[2017-04-22] MEDS: METOPROLOL SUCC 50MG EXT REL TAB PO SCH (09:14)
[2017-04-22] MEDS: VENLAFAXINE HCL XR 75 MG CAPXR PO SCH (09:14)
[2017-04-22] MEDS: CYANOCOBALAMIN 500 MCG TAB (VIT B-12) PO SCH (09:14)
--- NOTE | 2017-04-22 09:34 | HEME/ONC PROGRESS NOTE ---
DATE: 04/22/2017 PROBLEM LIST: 1. Thrombocytopenia, most likely secondary to low grade disseminated intravascular coagulation. 2. Status post fall, forehead laceration. 3. Failure to thrive. 4. Atrial fibrillation. 5. Acute on chronic renal injury. SUBJECTIVE: Mr. Vega was seen at bedside again this morning. He is a bit more lethargic as he is just waking up from his night of sleep[place] [id number] and doesnt warrant intervention. He does not require intervention at this time and will continue to observe him. Nursing reports no overnight difficulties. PHYSICAL EXAMINATION: GENERAL: He is in no acute distress. VITAL SIGNS: Temperature 37, pulse 108, respirations 16, blood pressure 117/78. SKIN: Again, scattered senile purpura involving his upper extremities. HEENT: Oral mucosa without erythema or ulceration. NECK: Supple. HEART: Regular rate and rhythm. LUNGS: Clear to auscultation. ABDOMEN: Soft, nontender, nondistended. EXTREMITIES: No clubbing, cyanosis or edema. NEUROLOGIC: Grossly intact. LABORATORY DATA: WBC count 49 20, hemoglobin 10.5; platelet count is actually improved, increased 10,000 from yesterday's measurement. Sodium 137, potassium 3.9, chloride 110, carbon dioxide 19, creatinine 2.02, and BUN 38. ASSESSMENT AND PLAN: 1. Thrombocytopenia, suspect low grade disseminated intravascular coagulation. 2. Status post fall/forehead laceration. 3. Failure to thrive. 4. Atrial fibrillation. 5. Acute on chronic renal injury. PLAN: Again, I examined Mr. Vega at bedside. His platelet count is indeed on the upswing and anticipate normalization here in the next couple of days. Continue medical management as ordered. I anticipate he may be discharged in the next day or two. If this is the case, I would be happy to see Mr. Vega as an outpatient within the next week or two to ensure full recovery of his counts and to further workup his anemia. Thank you for allowing me to participate in his care. If you have any questions or concerns, feel free to contact me at any time. MALOU
[2017-04-22 10:12] VITALS: O2SAT 100
[2017-04-22] MEDS: SODIUM CHLORIDE 0.45% 1000ML 1,000 ML IV SCH (12:00)
[2017-04-22] MEDS: LACTOBACILLUS ACIDOPHILUS (FLORANEX) TAB PO SCH (13:31)
[2017-04-22 15:07] VITALS: BP 126/81; PULSE 94; TEMP 36.3; O2SAT 99
--- NOTE | 2017-04-22 15:37 | Palliative Care Progress Note ---
Palliative Care Progress Note Date of Service Apr 22, 2017. Subjective Pt evaluation today including: conversation w/ patient, conversation w/ family (son Nawaf and [id number] Lou), physical exam, chart review Pain: none PO Intake: minimal Patient remains disoriented. Ate minimal amounts today, refused afternoon pills. Family meeting held with patient's son Nawaf and Nawaf's , Lou. Review of Systems unable to obtain due to AMS Objective Vital Signs Date Time Temp Pulse Resp B/P (MAP) Pulse Ox O2 Delivery O2 Flow Rate FiO2 04/22/17 10:35 Room Air 04/22/17 10:12 100 Room Air 04/22/17 08:30 36.3 84 16 140/90 (107) 100 Room Air 04/22/17 00:00 Room Air 04/21/17 16:00 Room Air Physical Exam General Appearance: no apparent distress, + cachetic, + thin ENT: hearing grossly normal Neck: supple, no JVD Respiratory/Chest: no respiratory distress, no accessory muscle use, + decreased breath sounds Cardiovascular: regular rate, rhythm, no edema Abdomen: normal bowel sounds, non tender, soft Neurologic/Psychiatric: alert, + disoriented Laboratory Results Last 24 Hours Test 04/22/17 06:38 04/22/17 08:05 White Blood Count 4.92 K/uL Red Blood Count 3.40 M/uL Hemoglobin 10.5 g/dL Hematocrit 32.1 % Mean Corpuscular Volume 94.4 fL Mean Corpuscular Hemoglobin 30.9 pg Mean Corpuscular Hemoglobin Concent 32.7 g/dl RDW Standard Deviation 58.1 fL RDW Coefficient of Variation 17.6 % Platelet Count 68 K/uL Mean Platelet Volume 11.4 fL Prothrombin Time 12.6 SECONDS Prothromb Time International Ratio 1.2 Activated Partial Thromboplast Time 40.6 SECONDS Partial Thromboplastin Ratio 1.6 Fibrinogen 403 mg/dl Sodium Level 137 mmol/L Potassium Level 3.9 mmol/L Chloride Level 110 mmol/L Carbon Dioxide Level 19 mmol/L Anion Gap 8.0 mmol/L Blood Urea Nitrogen 38 mg/dl Creatinine 2.02 mg/dl Est Creatinine Clear Calc Drug Dose 23.0 ml/min Estimated GFR () 34.3 Estimated GFR (Non- 29.6 BUN/Creatinine Ratio 18.9 Random Glucose 74 mg/dl Calcium Level 8.1 mg/dl Fibrin Degradation Products 10-40 mcg/ml Assessment and Plan Problem list: AMS Dementia Decreased PO intake ASIM on CKD Thrombocytopenia Hx CVA Goals of care Palliative care recs: -Plan is for home with hospice: [facility]. Case management is following. -I had a long conversation with patient's son and his about dementia. Yesterday son Nawaf stated, "No one has ever told me my dad has dementia." We talked about his father's condition and all the signs of end-stage dementia. Nawaf and Lou both verbalized understanding and had some questions about the progression of his disease. -Nawaf does not want his father to return to hospital once he leaves. We went over patient's living will yesterday which states that at end-stage disease, specifically dementia, that he would not want any life-prolonging treatment including CPR, IVF, artificial feeding. Patient's son was in agreement with his father's wishes. -Given that patient is refusing medications, would discontinue his oral pills. Son and [id number] were in agreement with this and feel his medications are not helping to bring him any sort of comfort at this point. -Could add Roxanol 5mg PO/SL Q3h PRN pain or SOB for comfort. Thank you again for consulting me on this nice patient and family. Please contact me with any further palliative care needs. Total time spent 35 minutes with >50% of time spent with patient and family at bedside counseling/discussing goals of care. Palliative Performance Scale: 20 %
--- NOTE | 2017-04-22 16:29 | Hospitalist Progress Note ---
Hospitalist Progress Note Date of Service Apr 22, 2017. (Aurora Gomez ., JACKSONC) Subjective Pt evaluation today including: conversation w/ patient, physical exam, chart review, lab review, review of inpatient medication list Unable to obtain reliable ROS. Patient denies complaints. Additional Comments: Unable to obtain reliable ROS. (Aurora Gomez, IVA) Objective Vital Signs Date Time Temp Pulse Resp B/P (MAP) Pulse Ox O2 Delivery O2 Flow Rate FiO2 04/22/17 15:07 36.3 94 18 126/81 (96) 99 04/22/17 10:35 Room Air 04/22/17 10:12 100 Room Air 04/22/17 08:30 36.3 84 16 140/90 (107) 100 Room Air 04/22/17 00:00 Room Air (Aurora Gomez, IVA) Physical Exam Notes: General appearance: +Appears chronically ill. Well-developed, no apparent distress Head: Normocephalic, atraumatic Eyes: Normal inspection, PERRL, EOMI ENT: Normal ENT inspection, hearing grossly normal, pharynx normal Neck: Supple, no JVD, trachea midline Respiratory/Chest: Lungs clear to auscultation, normal breath sounds, no respiratory distress Cardiovascular: +Irregularly irregular. No gallop, no murmur Abdomen/GI: Normal bowel sounds, non-tender, soft Extremities/Musculoskeletal: +Fingers appear edematous, dusky. No calf tenderness, no pedal edema Neurological/Psych: +Alert, disoriented to time. Alert, normal mood/affect, oriented x 2 Skin: +Laceration forehead closed w/sutures, healing. Skin tear bridge of nose healing. Scattered upper extremity ecchymoses. Normal color, warm/dry, no rash (Aurora Gomez ., ISAI-C) Laboratory Results Last 24 Hours Test 04/22/17 06:38 04/22/17 08:05 White Blood Count 4.92 K/uL Red Blood Count 3.40 M/uL Hemoglobin 10.5 g/dL Hematocrit 32.1 % Mean Corpuscular Volume 94.4 fL Mean Corpuscular Hemoglobin 30.9 pg Mean Corpuscular Hemoglobin Concent 32.7 g/dl RDW Standard Deviation 58.1 fL RDW Coefficient of Variation 17.6 % Platelet Count 68 K/uL Mean Platelet Volume 11.4 fL Prothrombin Time 12.6 SECONDS Prothromb Time International Ratio 1.2 Activated Partial Thromboplast Time 40.6 SECONDS Partial Thromboplastin Ratio 1.6 Fibrinogen 403 mg/dl Sodium Level 137 mmol/L Potassium Level 3.9 mmol/L Chloride Level 110 mmol/L Carbon Dioxide Level 19 mmol/L Anion Gap 8.0 mmol/L Blood Urea Nitrogen 38 mg/dl Creatinine 2.02 mg/dl Est Creatinine Clear Calc Drug Dose 23.0 ml/min Estimated GFR () 34.3 Estimated GFR (Non- 29.6 BUN/Creatinine Ratio 18.9 Random Glucose 74 mg/dl Calcium Level 8.1 mg/dl Fibrin Degradation Products 10-40 mcg/ml (Aurora Gomez ., IVA) Assessment and Plan 81 y/o male with a history of severe aortic stenosis s/p TAPVR in December 2016 , atrial fibrillation, [place] s/p PCI of RCA, PE, RA on chronic immunosuppression, chronic right pleural effusion, COPD, GERD, and peripheral artery disease who presents following a fall. Ambulatory dysfunction, fall -Admit to med/surg -PT/OT recommend rehab -Head CT no acute disease -Plavix held -Laceration on forehead closed w/sutures, placed 04/18, remove 04/24 Decreased oral intake/weight loss, dysphagia, severe protein calorie malnutrition --smoking h/o. Pt very concerning for malignancy -Speech therapy evaluate and treat: reported throat pain, placed on pureed diet w/aspiration precautions -Soft tissue neck and chest CT negative for malignancy -CT abdomen/pelvis negatived for mass/malignancy -Could be contributing to renal failure -Spoke with son. Pt has been declining for several months w/o motivation to get better, not eating. [facility] had been looking at SNFs prior to admission and considering hospice -Palliative care consulted, appreciate recs: Goal is hospice at [facility] vs SNF. Recommend d/cing home oral meds. Can use Roxanol 5 mg PO q3h prn pain or SOB. -Will d/c non-essential meds and lab draws -Will hold off on Roxanol due to oxycodone allergy (hives) Acute renal failure--improving -Previous Cr baseline 1.4-1.8 -Creatinine 2.02 on 04/22, down from 2.33 -IVF increased to 125 cc/hr -Renal ultrasound w/right nephrolithiasis and bilateral renal cysts. Findings consistent w/medical renal disease. No hydronephrosis Thrombocytopenia secondary to DIC--improving -PLT 68 on 04/22, improved from 58 -Repeat head CT negative for SDH -Hematology following: low grade DIC. No further intervention right now -Doppler ultrasound negative for DVT, VQ scan low probability of PE, no thrombus on echo PAD, cyanosis--cyanosis improved, fingers now warm -Echo negative for thrombus. LVEF over 70%, no wall motion abnormalities. Mild LVH Atrial fibrillation--rate controlled -Continue Toprol 100 mg PO qd as uncontrolled a-fib may cause discomfort -No anticoagulation due to h/o GI bleed and pt refusing therapy RA -Continue methotrexate 12.5 mg PO weekly, prednisone 1 mg PO BID to help prevent pain HLD -D/C Zocor Depression -D/C Effexor Code Status -Level I, FULL RESUSCITATION STATUS Dispo -From [facility] personal care -PT/OT recommend rehab; however after discussing w/son, SNF more suitable. Looking at hospice at either [facility] or SNF (Aurora Gomez, IVA) Reviewed: Pt Seen/Exam by Me (Jennifer Trotter MD) History Physician Folder Gluer Operator supervision Note: I interviewed and examined the patient. Discussed with ISAI Gmoez and agree with findings and plan as documented in the note. Any exceptions or clarifications are listed here: Pt getting cleaned up by 2 RN students when I saw him and appeared calm, awake, would not answer my questions, but just looked at me. Not eating today. Vitals reviewed Gen: awake, alert, NAD, disoriented to place and time HEENT: anicteric sclerae, EOMI CV: Irregularly irregular, reg rhythm Pulm: CTAB no wcr Abd: +BS soft NT ND no masses or hernias, scaphoid appearance Ext: no edema Skin: multiple areas of bruising on arms and forehead/face with sutures in place on forehead Patient is an 81-year-old male with a history of permanent atrial fibrillation not on anticoagulation due to history of bleeding and patient refusal, embolic CVA, aortic stenosis now status post TAVR, [place] s/p PCI of RCA, PE, RA on chronic immunosuppression, chronic right pleural effusion, COPD, GERD, CKD stage III, major depressive disorder, and PAD who presents following a fall. Found to have acute renal insufficiency on CKD stage III, with failure to thrive. Failure to thrive could be secondary to worsening major depressive disorder, progressive dementia, recent stroke, poor p.o. intake. - severe protein calorie malnutrition-continue to encourage p.o. intake as desired, but transitioning to Hospice Care after Palliative consultation, workup for malignancy unrevealing thus far-Palliative care consultation with family and pt--> looking into Hospice and return to [facility] on Tuesday as per Case Management -acute renal failure in setting of CKD stage 3-continues to improve with hydration, Discontinue IVFs now -Low level DIC/Thrombocytopenia-plts low but magno 52k, now increased to 68k, discussed case with Hematology, FDPs high, fibrinogen high but could be from inflammatory process? PTT elevated-no evidence of clot on imaging and ECHO, could be from extensive bruising from fall vs TTP Plavix reaction--> follow labs and transfuse plts for bleeding and plts<30k--> if plts continue to trend back upwards tomorrow, will stop all labs -uncontrolled a. fib-rates improved with taking metoprolol although intermittently refuses pills cyanotic finger tips-resolved, could be Raynaud's phenomenon given his history of autoimmune disorders, echo without vegetation or thrombus although was only TTE COPD-stable encephalopathy - metabolic-possibly resolved? difficult to tell what baseline is Dementia-progressing, vascular vs Alzheimer's dysphagia with voice changes-CT of the neck with thyroid nodule stable, TSH normal CT of the abdomen and pelvis with chronic perinephric stranding likely secondary to chronic kidney disease, no obstruction Will need sutures removed from forehead in 1 day Palliative Care consult appreciated, CM aware and working on Hospice at [facility] where he currently resides. Will minimize po medications--> stopped folate , statin, Effexor, B12, Protonix. Will continue metoprolol so doesn't have KEY and associated dyspnea for now, will continue MTX and chronic prednisone for pain He is allergic to oxycodone so will not institute Roxanol at this time Changed to DNR Documented By: Jennifer Trotter (Jennifer Trotter MD)
[2017-04-23 00:33] VITALS: BP 129/85; PULSE 101; TEMP 36.4; O2SAT 96
[2017-04-23] MEDS: SODIUM CHLORIDE 0.45% 1000ML 1,000 ML IV SCH (01:25)
[2017-04-23 07:36] VITALS: BP 145/84; PULSE 79; TEMP 36.3; O2SAT 98
[2017-04-23 08:00] VITALS: O2SAT 98
[2017-04-23 08:02] LABS: HEMATOCRIT 32.5 % (42-52); HEMOGLOBIN 10.6 g/dL (14.0-18.0); MEAN CELL VOLUME 93.7 fL (80-100); MEAN CORPUSCULAR HEMOGLOBIN 30.5 pg (25-34); MEAN CORPUSCULAR HGB CONC 32.6 g/dl (32-36); RED CELL DISTRIBUTION WIDTH CV 17.7 % (11.5-14.5); RED CELL DISTRIBUTION WIDTH SD 59.1 fL (36.4-46.3); WHITE BLOOD COUNT 5.93 K/uL (4.8-10.8)
[2017-04-23 08:34] LABS: CALCIUM 8.1 mg/dl (8.5-10.1); CREATININE 1.83 mg/dl (0.60-1.40); POTASSIUM 3.9 mmol/L (3.5-5.1)
[2017-04-23 08:36] LABS: BASO % 0.2 %; BASO ABS # 0.01 K/uL (0-0.2); EOS % 0.7 %; EOS ABS # 0.04 K/uL (0-0.5); IG# 0.01 K/uL (0.00-0.02); LYMPH % 5.9 %; LYMPH ABS # 0.35 K/uL (1.2-3.4); MEAN PLATELET VOLUME 10.8 fL (7.4-10.4); MONO % 5.2 %; MONO ABS # 0.31 K/uL (0.11-0.59); NEUT % 87.8 %; NEUT ABS # 5.21 K/uL (1.4-6.5); PLATELET COUNT 81 K/uL (130-400)
[2017-04-23] MEDS: METOPROLOL SUCC 50MG EXT REL TAB PO SCH (09:06)
[2017-04-23 15:18] VITALS: BP 110/67; PULSE 107; TEMP 36.2
[2017-04-23 16:00] VITALS: O2SAT 96
[2017-04-24 00:28] VITALS: BP 111/59; PULSE 59; TEMP 36.7; O2SAT 94
[2017-04-24 07:37] VITALS: BP 122/84; PULSE 91; TEMP 36.4
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
[2017-04-24 08:46] LABS: PLATELET COUNT 125 K/uL (130-400)
[2017-04-24 08:52] LABS: CALCIUM 8.6 mg/dl (8.5-10.1); CREATININE 1.99 mg/dl (0.60-1.40); POTASSIUM 4.4 mmol/L (3.5-5.1)
[2017-04-24] MEDS ORDERED: METHOTREXATE 2.5 MG TAB PO SCH (09:00)
[2017-04-24] MEDS: METOPROLOL SUCC 50MG EXT REL TAB PO SCH (09:08)
--- NOTE | 2017-04-24 11:00 | DIAGNOSTIC IMAGING REPORT ---
LEFT HAND 3 VIEWS CLINICAL HISTORY: Second finger swelling and erythema. FINDINGS: 3 views of the left hand are compared to study dated 04/09/2017. The skeletal structures are osteopenic. No fracture is seen. No bony erosion or periostitis is identified. Mild arthritic change is seen at the first carpometacarpal joint. Arthritic changes also seen involving the first and second metacarpophalangeal joints and the interphalangeal joints. Mild soft tissue swelling is suggested in the fingers. IMPRESSION: 1. No acute bony abnormality is seen in the left hand. 2. Osteopenia and arthritic change as above. Electronically signed by: Jose Manuel Greenwood M.D. 04/24/2017 10:59 AM Dictated Date/Time: 04/24/2017 10:57 AM
--- NOTE | 2017-04-24 12:01 | HEME/ONC PROGRESS NOTE ---
DATE: 04/24/2017 PROBLEM LIST: 1. Thrombocytopenia. 2. Status post fall/forehead laceration. 3. Failure to thrive. 4. Atrial fibrillation. 5. Acute on chronic renal injury. SUBJECTIVE: I visited with Mr. Vega at bedside again today. Today, represents hospital 5 for this gentleman as well. His platelets have steadily improved, currently measuring 125,000. Nursing offers no overnight difficulties and I believe patient is pending discharge to the [facility], if patient and family agreed to outpatient hospice care. From a hematologic standpoint, I believe his platelets will continue towards normal and no intervention is required. PHYSICAL EXAMINATION: GENERAL: He is in no acute distress. VITAL SIGNS: Temperature 36.4, pulse 91, respirations 20, blood pressure 122/84. SKIN: Senile purpura involving his upper extremities. HEENT: Oral mucosa without erythema or ulceration. NECK: Supple. HEART: Regular rate and rhythm. LUNGS: Clear to auscultation. ABDOMEN: Soft, nontender, nondistended. EXTREMITIES: No clubbing, cyanosis or edema. NEUROLOGIC: Grossly intact. LABORATORY DATA: Platelet count 125,000. Sodium 138, potassium 4.4, chloride 109, carbon dioxide 19, creatinine 1.99, and BUN 36. IMPRESSION: 1. Thrombocytopenia, suspected a low grade disseminated intravascular coagulation. 2. Status post fall/forehead laceration . 3. Failure to thrive. 4. Acute on chronic renal injury. PLAN: Mr. Vega seems to be making steady clinical progress. According to nursing, plans are to discharge him to the [facility] as long as the patient and family members agree to outpatient hospice. From a hematologic standpoint, I will sign off as his platelet count is well over 100,000 and expect normalization in the next day or two. Thank you for allowing me to participate in his care and I will officially sign off on this case. Feel free to contact me at any time.
[2017-04-24 15:15] VITALS: BP 116/84; PULSE 109; TEMP 36.4
[2017-04-24] MEDS: NYSTATIN SUSP 500,000 U/5 ML UDC PO SCH ×2 (16:31→19:58)
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
[2017-04-25] VITALS (7 sets, daily range): BP systolic 126–180; BP diastolic 84–98; PULSE 84–90; TEMP 36.3–36.8; O2SAT 87–100
[2017-04-25 06:06] LABS: HEMATOCRIT 36.4 % (42-52); HEMOGLOBIN 12.4 g/dL (14.0-18.0); MEAN CELL VOLUME 92.2 fL (80-100); MEAN CORPUSCULAR HEMOGLOBIN 31.4 pg (25-34); MEAN CORPUSCULAR HGB CONC 34.1 g/dl (32-36); MEAN PLATELET VOLUME 10.6 fL (7.4-10.4); PLATELET COUNT 175 K/uL (130-400); RED CELL DISTRIBUTION WIDTH SD 58.2 fL (36.4-46.3); WHITE BLOOD COUNT 5.69 K/uL (4.8-10.8)
[2017-04-25] MEDS: NYSTATIN SUSP 500,000 U/5 ML UDC PO SCH ×4 (06:30→19:34)
[2017-04-25 06:39] LABS: CALCIUM 8.4 mg/dl (8.5-10.1); CREATININE 2.11 mg/dl (0.60-1.40); POTASSIUM 4.6 mmol/L (3.5-5.1)
[2017-04-25] MEDS: METOPROLOL SUCC 50MG EXT REL TAB PO SCH (07:50)
[2017-04-25] MEDS: SENNA 8.6 MG TAB PO SCH (10:39)
--- NOTE | 2017-04-25 16:32 | Hospitalist Progress Note ---
Hospitalist Progress Note Date of Service Apr 25, 2017. (Aurora Gomez ., IVA) Subjective Pt evaluation today including: conversation w/ patient, physical exam, chart review, lab review, review of inpatient medication list Patient seen and examined. Does not participate much in interview or provide much ROS. He does note some pain in his left side that he states occurs with deep breaths but otherwise does not provide much meaningful ROS. Additional Comments: Unable to obtain meaningful ROS. (Aurora Gomez, IVA) Objective Vital Signs Date Time Temp Pulse Resp B/P (MAP) Pulse Ox O2 Delivery O2 Flow Rate FiO2 04/25/17 15:00 Room Air 04/25/17 08:30 94 Room Air 04/25/17 08:14 94 Room Air 04/25/17 08:04 36.8 86 20 144/86 (105) 94 Room Air 04/25/17 01:16 36.3 88 18 180/87 (118) 92 Room Air 04/25/17 00:00 Room Air (Aurora Gomez ., IVA) Physical Exam Notes: General appearance: +Appears chronically ill. Well-developed, no apparent distress Head: Normocephalic, atraumatic Eyes: Normal inspection, PERRL, EOMI ENT: Normal ENT inspection, hearing grossly normal, pharynx normal Neck: Supple, no JVD, trachea midline Respiratory/Chest: Lungs clear to auscultation, normal breath sounds, no respiratory distress Cardiovascular: +Irregularly irregular. No gallop, no murmur Abdomen/GI: Normal bowel sounds, non-tender, soft Extremities/Musculoskeletal: +Fingers appear dusky. No calf tenderness, no pedal edema Neurological/Psych: +Alert, disoriented to time. Alert, normal mood/affect, oriented x 2 Skin: +Laceration forehead healing, sutures removed. Skin tear on bridge of nose healing. Normal color, warm/dry, no rash (Aurora Gomez ., [place]) Laboratory Results Last 24 Hours Test 04/24/17 16:29 04/24/17 20:24 04/25/17 05:22 04/25/17 08:21 Bedside Glucose 108 mg/dl 146 mg/dl 104 mg/dl White Blood Count 5.69 K/uL Red Blood Count 3.95 M/uL Hemoglobin 12.4 g/dL Hematocrit 36.4 % Mean Corpuscular Volume 92.2 fL Mean Corpuscular Hemoglobin 31.4 pg Mean Corpuscular Hemoglobin Concent 34.1 g/dl RDW Standard Deviation 58.2 fL RDW Coefficient of Variation 18.0 % Platelet Count 175 K/uL Mean Platelet Volume 10.6 fL Sodium Level 138 mmol/L Potassium Level 4.6 mmol/L Chloride Level 109 mmol/L Carbon Dioxide Level 19 mmol/L Anion Gap 10.0 mmol/L Blood Urea Nitrogen 40 mg/dl Creatinine 2.11 mg/dl Est Creatinine Clear Calc Drug Dose 22.0 ml/min Estimated GFR () 32.6 Estimated GFR (Non- 28.1 BUN/Creatinine Ratio 18.9 Random Glucose 113 mg/dl Calcium Level 8.4 mg/dl Test 04/25/17 11:43 04/25/17 12:20 Bedside Glucose 69 mg/dl 77 mg/dl (Aurora Gomez ., IVA) Assessment and Plan 81 y/o male with a history of severe aortic stenosis s/p TAPVR in December 2016 , atrial fibrillation, VT s/p PCI of RCA, PE, RA on chronic immunosuppression, chronic right pleural effusion, COPD, GERD, and peripheral artery disease who presents following a fall. Ambulatory dysfunction, fall -Admit to med/surg -PT/OT recommend rehab -Head CT no acute disease -Plavix d/c'd -Laceration on forehead closed w/sutures, removed 3/4 Decreased oral intake/weight loss, dysphagia, severe protein calorie malnutrition --smoking h/o. Pt very concerning for malignancy -Speech therapy evaluate and treat: reported throat pain, placed on pureed diet w/aspiration precautions -Soft tissue neck and chest CT negative for malignancy -CT abdomen/pelvis negatived for mass/malignancy -Could be contributing to renal failure -Spoke with son. Pt has been declining for several months w/o motivation to get better, not eating. [facility] had been looking at SNFs prior to admission and considering hospice -Palliative care consulted, appreciate recs: Goal is hospice at [facility] vs SNF. Recommend d/cing home oral meds. Can use Roxanol 5 mg PO q3h prn pain or SOB. -Will d/c non-essential meds and lab draws -Will hold off on Roxanol due to oxycodone allergy (hives) Acute renal failure--stable -Previous Cr baseline 1.4-1.8 -Creatinine was improving on IVF. IVF since stopped as on hospice, creatinine creeping up. Pt not eating much -Renal ultrasound w/right nephrolithiasis and bilateral renal cysts. Findings consistent w/medical renal disease. No hydronephrosis Thrombocytopenia secondary to DIC--resolved -PLT 175 on 04/25. Will d/c further lab draws -Repeat head CT negative for SDH -Hematology following: low grade DIC. No further intervention right now -Doppler ultrasound negative for DVT, VQ scan low probability of PE, no thrombus on echo PAD, cyanosis--cyanosis improved, fingers now warm -Echo negative for thrombus. LVEF over 70%, no wall motion abnormalities. Mild LVH Atrial fibrillation--rate controlled -Continue Toprol 100 mg PO qd as uncontrolled a-fib may cause discomfort -No anticoagulation due to h/o GI bleed and pt refusing therapy RA -Continue methotrexate 12.5 mg PO weekly to prevent pain/for comfort -Prednisone increased to 10 mg PO BID, pain controlled HLD -D/C Zocor Depression -D/C Effexor Code Status -Level I, FULL RESUSCITATION STATUS Dispo -From [facility] personal care -Plan to d/c back to [facility] on hospice tomorrow (Aurora Gomez ., PA-C) Attending Attestation - Pt seen/examined, chart reviewed, care plan d/w ISAI Gomez. I agree w/ the allen components of her documentation. During the visit he c/o left hip discomfort with movement (left groin). Resting comfortably. Dinner tray arrived while I was here - declined to eat. VSS no fever gen - chronically ill, NAD otherwise neck - no JVD heart - irregular, s1, s2 lungs - CTA b/l abd - soft, NT ext - able to passively flex the left hip w/o pain neuro - muscle wasting of arms/legs A/P: 1. severe protein calorie malnutrition/weight loss - concerning for underlying malignancy, none found during this stay. Depression could have played a role. 2. recent forehead laceration s/p sutures - sutures now removed, lac healed. 3. a. fib with RVR - latter resolved. 4. acute kidney injury - resolved, now Cr trending up, likely due to poor oral intake. 5. metabolic encephalopathy - improved but still ongoing. dispo - to the [facility]/ hospice, hopefully tomorrow Ashok Ornelas MD (Ashok Ornelas MD)
[2017-04-26] MEDS: NYSTATIN SUSP 500,000 U/5 ML UDC PO SCH ×2 (06:10→12:14)
[2017-04-26 07:25] VITALS: BP_SYST 153; BP_SYST 165; BP_DIAS 103; BP_DIAS 95; PULSE 89; TEMP 36.3; O2SAT 100
[2017-04-26 08:17] VITALS: BP 158/97; PULSE 90
[2017-04-26] MEDS: METOPROLOL SUCC 50MG EXT REL TAB PO SCH (08:18)
[2017-04-26] MEDS: SENNA 8.6 MG TAB PO SCH (08:18)
[2017-04-26] MEDS ORDERED: SENN-61 PO (11:28)
--- NOTE | 2017-04-26 11:37 | Discharge Instructions ---
Discharge Instructions Date of Service Apr 26, 2017. Admission Reason for Admission: Acute On Chronic Kidney Injury, Dehydration Discharge Discharge Diagnosis / Problem: Acute renal failure, severe protein calorie malnutrition Discharge Goals Goal(s): Decrease discomfort Activity Recommendations Activity Level: Assistance Required . Additional Information Patient informed of condition: Yes Advance Directives: No DNR: Yes Level of Care: Other (hopsice at [facility]) Communicable Disease: No Prognosis: Stable Instructions / Follow-Up Instructions / Follow-Up The patient had presented with acute renal failure. The patient severe protein calorie malnutrition with significant weight loss and very poor appetite. The patient was worked up for malignancy, but there was no evidence of such during his hospital stay. The patient does have dementia and depression since his passed, so these may be contributing. After discussing with patient's son , it was decided to consult palliative care. The patient will now return to [facility] on hospice care. Medications: *Continue metoprolol as withholding may cause a-fib with RVR and therefore discomfort *Continue Senokot 17.2 mg PO qd. *Continue methotrexate and prednisone for his rheumatoid arthritis to help alleviate his pain associated with this. *Discontinue other medications for hospice. Current Hospital Diet Patient's current hospital diet: AHA Diet (Heart Healthy) Discharge Diet Recommended Diet: Regular Diet Diet Texture: Pureed (blended smooth) (moist) Pending Studies Studies pending at discharge: no Physician Orders On Transfer Special Precautions: Fall precautions, aspiration precautions Dressing Changes: Optifoam to right elbow, skin tears Vital Signs: Routine, on hospice Additional Orders: Waffle boots Laboratory Results Hemoglobin A1c Test 02/09/17 05:51 Range/Units Estimated Average Glucose 100 mg/dl Hemoglobin A1c 5.1 4.5-5.6 % Lipid Panel Test 02/10/17 06:54 Range/Units Triglycerides Level 140 0-150 mg/dl Cholesterol Level 113 0-200 mg/dl HDL Cholesterol 35 mg/dl Cholesterol/HDL Ratio 3.2 LDL Cholesterol, Calculated 50 mg/dl Medical Emergencies . Who to Call and When: Medical Emergencies: If at any time you feel your situation is an emergency, please call 911 immediately. . Non-Emergent Contact Non-Emergency issues call your: Primary Care Provider Call Non-Emergent contact if: you have a fever, your pain is not controlled, your pain is worsening, your pain is unusual for you, your pain is concerning you, wound has increased drainage, wound has increased redness, wound has increased pain, you have any medication questions . Past History Medical & Surgical History: (1) Acute renal failure (2) Dehydration . "Provider Documentation" section prepared by Aurora Gomez. . Core Measure Problem Core Measures: None
[2017-04-26 13:20] VITALS: BP 158/97; PULSE 90; TEMP 36.3; O2SAT 100
--- NOTE | 2017-04-26 15:35 | Discharge Summary ---
Discharge Summary Date of Service Apr 26, 2017. 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, severe aortic stenosis s/p TAPVR in December 2016, atrial fibrillation, IL s/p PCI of RCA, PE, RA on chronic immunosuppression, chronic right pleural effusion, COPD, GERD, peripheral artery disease, CKD stage 4, forehead laceration s/p repair w /subsequent removal of sutures recurrent hypoglycemia metabolic encephalopathy in setting of suspected dementia or cognitive impairment Immunizations: Have You Had Influenza Vaccine: Yes History of Tetanus Vaccine?: unknown History of Pneumococcal: No History of Hepatitis B Vaccine: No Procedures: 1, Interpretation Summary * Name: BROCK BLANKENSHIP Study Date: 04/18/2017 02:45 PM * Patient Location: [facility] [place]\S\05\S\1 * : 1935 (M/d/yyyy) Gender: Male Height: 67 in * Age: 81 yrs Ethnicity: [place] Weight: 129 lb * Ordering Physician: Aurora Gomez * Referring Physician: Kehinde Barrett * Performed By: Federica Bright RDCS * * Reason For Study: ASSESS FOR THROMBUS, H/O AFIB * BSA: 1.7 m2 * -- Conclusions -- * The left ventricular cavity is small. * There is mild concentric left ventricular hypertrophy. * The left ventricle is hyperdynamic. * The left atrium is moderately dilated. * The right atrium is moderate to severely dilated. * There is a bioprosthetic aortic valve. * There is mild mitral regurgitation. * There is moderate tricuspid regurgitation. * The inferior vena cava is mildly dilated. * Compared to an echocardiogram from 01/20/2017, the pulmonary pressures are slightly lower otherwise no significant difference. Procedure Details * Left Ventricle The left ventricular cavity is small. There is mild concentric left ventricular hypertrophy. Ejection Fraction = >70 %. The left ventricle is hyperdynamic. The left ventricular wall motion is normal. * Right Ventricle The right ventricle is normal in size and function. * Atria The left atrium is moderately dilated. The right atrium is moderate to severely dilated. * Mitral Valve There is moderate mitral annular calcification. There is mild mitral regurgitation. * Tricuspid Valve The tricuspid valve is not well visualized, but is grossly normal. There is moderate tricuspid regurgitation. * Aortic Valve Trace aortic regurgitation. There is a bioprosthetic aortic valve. The gradient is normal for this prosthetic aortic valve. * Pericardium/Pleural There is no pericardial effusion. * Great Vessels The inferior vena cava is mildly dilated. 2. suture repair of forehead laceration, s/p removal of sutures with good cosmesis/closure 3. head CT x 2, CT soft tissue neck, CT chest/abd/pelvis, v/q scan, b/l LE venous dopplers, left hand x-ray (no osteomyelitis or fractures) Consultations: Hematology/oncology Palliative care Medication Reconciliation New Medications: Senna (Senokot) 8.6 Mg Tab 17.2 MG PO QAM for 30 Days, #60 TAB Continued Medications: Methotrexate Sodium (Methotrexate) 2.5 Mg Tab 12.5 MG PO WK, TAB TAKE THIS MEDICATION EVERY TUESDAY Metoprolol Succinate (Metoprolol Succinate ER) 100 Mg Tabcr 100 MG PO QAM Prednisone (Prednisone) 1 Mg Tab 1 MG PO BID17, TAB Discontinued Medications: Acetaminophen (Tylenol) 325 Mg Tab 650 MG PO Q6H PRN for Pain, TAB Clindamycin HCl (Clindamycin HCl) 150 Mg Cap 450 MG PO QID STARTED 04/11/17 FOR 14 DAYS. Clopidogrel (Plavix) 75 Mg Tab 75 MG PO QPM, TAB Cyanocobalamin (Vitamin B12) 1,000 Mcg Tab 1000 MCG PO QAM Diphenhydramine Hcl (Benadryl Allergy) 25 Mg Cap 25 MG PO Q4 PRN for Itching, #30 CAP Folic Acid (Folvite) 1 Mg Tab 1 MG PO [id number], TAB EVERY DAY EXCEPT SUNDAYS. Lactobacillus (Ultimate Probiotic Formul) 13.3 Mg Cap 1 TAB PO DAILY AT 1200 STARTED 04/11/17 TAKE WHILE TAKING CLINDAMYCIN. Nitroglycerin (Nitrostat) 0.4 Mg Tab 0.4 MG UT UD PRN for Chest Pain, BTL PLACE ONE TABLET UNDER THE TONGUE EVERY 5 MINUTES FOR UP TO 3 DOSES IF NEEDED FOR CHEST PAIN Omeprazole (Prilosec) 20 Mg Capcr 20 MG PO QAM, CAP Polyethylene Glycol 3350 (Miralax) 1 Pow Pow 17 GM PO DAILY PRN for Constipation, GM Simvastatin (Zocor) 40 Mg Tab 40 MG PO HS Triamcinolone Acet (Triamcinolone Acetonide) 15 Appln/5 Gm Pste 1 APPLN TD DAILY PRN for RASH Venlafaxine Hcl (Effexor Xr) 75 Mg Cap 1 CAP PO DAILY for 30 Days, #30 CAP 1 Refill Discharge Exam Patient sleepy on my exam, no complaints. Appetite slightly improved today. The patient denies fevers, chills, sweats, chest pain, palpitations, claudication, cough, wheezing, shortness of breath, nausea, vomiting, abdominal pain, dysuria, hematuria, urinary retention, paralysis, weakness, numbness and tingling. Constitutional: No fever, No chills, No sweats Eyes: No worsening of vision, No eye pain, No diplopia ENT: No hearing loss, No nasal symptoms, No trouble swallowing Respiratory: No cough, No wheezing, No shortness of breath Cardiovascular: No chest pain, No claudication, No palpitations Abdomen: No pain, No nausea, No vomiting Musculoskeletal: No joint pain, No muscle pain, No swelling Genitourinary - Male: No dysuria, No urinary retention, No hematuria Neurologic: No paralysis, No weakness, No numbness/tingling Integumentary: No rash, No itch, No color change General appearance: +Appears chronically ill. Well-developed, no apparent distress Head: Normocephalic, atraumatic Eyes: Normal inspection, PERRL, EOMI ENT: Normal ENT inspection, hearing grossly normal, pharynx normal Neck: Supple, no JVD, trachea midline Respiratory/Chest: Lungs clear to auscultation, normal breath sounds, no respiratory distress Cardiovascular: +Irregularly irregular, rate controlled. No gallop, no murmur Abdomen/GI: Normal bowel sounds, non-tender, soft Extremities/Musculoskeletal: +Fingers appear dusky. No calf tenderness, no pedal edema Neurological/Psych: +Drowsy today. Normal mood/affect, oriented x 2 Skin: +Laceration forehead healing, sutures removed. Skin tear on bridge of nose healing. Normal color, warm/dry, no rash Hospital Course 81 y/o male with a history of severe aortic stenosis s/p TAPVR in December 2016 , atrial fibrillation, IL s/p PCI of RCA, PE, RA on chronic immunosuppression, chronic right pleural effusion, COPD, GERD, and peripheral artery disease who presents following a fall. Ambulatory dysfunction, fall -Admit to med/surg -PT/OT recommend rehab -Head CT no acute disease -Plavix d/c'd -Laceration on forehead closed w/sutures, removed / Decreased oral intake/weight loss, dysphagia, severe protein calorie malnutrition --smoking h/o. Pt very concerning for malignancy -Speech therapy evaluate and treat: reported throat pain, placed on pureed diet w/aspiration precautions -Soft tissue neck and chest CT negative for malignancy -CT abdomen/pelvis negatived for mass/malignancy -Could be contributing to renal failure -Spoke with son. Pt has been declining for several months w/o motivation to get better, not eating. [facility] had been looking at SNFs prior to admission and considering hospice -Palliative care consulted, appreciate recs: Goal is hospice at [facility] vs SNF. Recommend d/cing home oral meds. Can use Roxanol 5 mg PO q3h prn pain or SOB. -Will d/c non-essential meds and lab draws -Will hold off on Roxanol due to oxycodone allergy (hives) Acute renal failure--ongoing -Previous Cr baseline 1.4-1.8 -Creatinine was improving on IVF. IVF since stopped as on hospice, creatinine creeping up. Pt not eating much -Renal ultrasound w/right nephrolithiasis and bilateral renal cysts. Findings consistent w/medical renal disease. No hydronephrosis Thrombocytopenia secondary to DIC--resolved -PLT 175 on 04/25. Will d/c further lab draws -Repeat head CT negative for SDH -Hematology following: low grade DIC, resolving. No further intervention right now -Doppler ultrasound negative for DVT, VQ scan low probability of PE, no thrombus on echo PAD, cyanosis--cyanosis improved, fingers now warm -Echo negative for thrombus. LVEF over 70%, no wall motion abnormalities. Mild LVH Atrial fibrillation--rate controlled -Continue Toprol 100 mg PO qd as uncontrolled a-fib may cause discomfort -No anticoagulation due to h/o GI bleed and pt refusing therapy RA -Continue methotrexate 12.5 mg PO weekly to prevent pain/for comfort -Prednisone increased to 10 mg PO BID, pain controlled, will d/c back on home dose of 1 mg PO BID HLD -D/C Zocor Depression -D/C Effexor Code Status -Level V, DO NOT RESUSCITATE Dispo -From [facility] personal care -D/C back to [facility] for hospice Attending Attestation & Discharge Note: Pt seen/examined, chart reviewed, care plan d/w PA Aurora Gomez. I agree w/ the allen components of her discharge summary. 81yo male with multiple medical problems - h/o TAVR for severe , a. fib, CAD, rheumatoid arthritis on chronic Mtx therapy & prednisone, COPD, PAD - presented after a fall with head injury. Had forehead laceration requiring suture repair. Found to be in acute renal failure with presenting creatinine of 3.1. By history had had 50+ pound weight loss in the last year, very poor appetite/ failure to thrive, probable depression after had , etc. During his stay a malignancy work up was pursued but nothing obvious was seen on CT scans. He was seen by speech for dysphagia and pureed diet was recommended. However, his appetite was very poor with little intake his entire stay. Creatinine improved with IVF to <2 but then upticked later in his stay as his appetite/liquid intake dropped off. Stay was complicated by recurrent hypoglycemia - suspect combination of poor glycogen reserve, probable relative adrenal insufficiency in setting of chronic steroid use, and poor intake. This improved with giving higher amounts of prednisone for his rheumatoid. He did have evidence of RA flare with multiple joints of the hands with synovitis. Mental status waxed/waned throughout his stay. He spent the majority of his time in bed sleeping. Son was contacted multiple times, hospice discussions took place, and hospice will be pursued at [facility] upon discharge. Discharge exam - gen - cachetic, thin, mild confusion mouth - MMM neck - no JVD heart - irregular, s1, s2 lungs - CTA b/l abd - scaphoid, BS+, NT ext - no edema musculo - resolving synovitis of multiple small joints of b/l hands, left hand worse than right skin - forehead lac w/ good cosmesis & closure Ashok Ornelas MD Total Time Spent: Greater than 30 minutes This includes examination of the patient, discharge planning, medication reconciliation, and communication with other providers. Discharge Instructions Please refer to the electronic Patient Visit Report (Discharge Instructions) for additional information. Additional Copies To Tristen Preston M.D.
== END 2017-04-26 15:11 | disposition hospice, inpatient (51) | DRG 813 ==
LOC: EDBD 23:28 → C.EDA 23:29 → C.4E 04-18 04:32 → ENRESERV 04-18 05:17 → OBSVTOIN 04-19 09:25
PROVIDERS: ADMIT Student in an Organized Health Care Education/Training Program; ATTEND Internal Medicine
PROC: 0HQ1XZZ Repair Face Skin, External Approach (ICD-10-PCS; principal; 2017-04-18)
DX: D65 Disseminated intravascular coagulation [defibrination syndrome] (principal); E43 Unspecified severe protein-calorie malnutrition; G93.41 Metabolic encephalopathy; N17.9 Acute kidney failure, unspecified; B37.0 Candidal stomatitis; S01.81XA Laceration without foreign body of other part of head, initial encounter; E86.0 Dehydration; R62.7 Adult failure to thrive; R26.9 Unspecified abnormalities of gait and mobility; R13.10 Dysphagia, unspecified; M79.641 Pain in right hand; M79.642 Pain in left hand; R23.0 Cyanosis; F32.9 Major depressive disorder, single episode, unspecified; E16.2 Hypoglycemia, unspecified; F03.90 Unspecified dementia, unspecified severity, without behavioral disturbance, psychotic disturbance, mood disturbance, and anxiety; Z66 Do not resuscitate; I48.2 Chronic atrial fibrillation; I25.10 Atherosclerotic heart disease of native coronary artery without angina pectoris; I25.2 Old myocardial infarction; N18.3 Chronic kidney disease, stage 3 (moderate); M06.9 Rheumatoid arthritis, unspecified; I73.9 Peripheral vascular disease, unspecified; K21.9 Gastro-esophageal reflux disease without esophagitis; J44.9 Chronic obstructive pulmonary disease, unspecified; Z79.899 Other long term (current) drug therapy; Z79.02 Long term (current) use of antithrombotics/antiplatelets; Z91.81 History of falling; Z95.5 Presence of coronary angioplasty implant and graft; Z86.73 Personal history of transient ischemic attack (TIA), and cerebral infarction without residual deficits; Z95.2 Presence of prosthetic heart valve; Z87.891 Personal history of nicotine dependence; Z88.5 Allergy status to narcotic agent; Z88.8 Allergy status to other drugs, medicaments and biological substances; W01.10XA Fall on same level from slipping, tripping and stumbling with subsequent striking against unspecified object, initial encounter; Y92.192 Bathroom in other specified residential institution as the place of occurrence of the external cause; Y93.E8 Activity, other personal hygiene; Y99.8 Other external cause status